=== PATIENT | female | born 2000 | race African-American/Black ===

== ENCOUNTER 2018-09-06 09:38 | Emergency (ER) | payer MEDICAID ==
[2018-09-06 10:12] LABS: BASOPHILS # (AUTO) 0.1 10^3/uL (0.0-0.1); EOSINOPHILS # (AUTO) 0.1 10^3/uL (0.0-0.7); EOSINOPHILS % (AUTO) 0.9 %; HGB - HEMOGLOBIN 12.9 g/dL (12.0-16.0); LYMPHOCYTES # (AUTO) 2.4 10^3/uL (1.5-3.5); LYMPHOCYTES % (AUTO) 26.8 %; MEAN CORPUSCULAR HEMOGLOBIN 27.3 pg (27.0-31.0); MEAN CORPUSCULAR HGB CONC 33.1 g/dL (32.0-36.0); MEAN CORPUSCULAR VOLUME 82.5 fL (81.0-99.0); MEAN PLATELET VOLUME 8.4 fL (7.9-10.8); MONOCYTES # (AUTO) 0.8 10^3/uL (0.0-1.0); MONOCYTES % (AUTO) 8.7 %; NEUTROPHILS # (AUTO) 5.6 10^3/uL (1.5-6.6); NEUTROPHILS % (AUTO) 62.6 %; PLT - PLATELET COUNT 251 10^3/uL (130-450); RED BLOOD COUNT 4.75 10^6/uL (4.20-5.40); RED CELL DISTRIBUTION WIDTH 13.3 % (12.0-15.0); WHITE BLOOD COUNT 8.9 x10^3/uL (4.8-10.8)
[2018-09-06 10:16] LABS: MUDS CUTOFF CONCENTRATIONS CUTOFF CONC BELOW:
--- NOTE | 2018-09-06 10:17 | ED Physician Documentation ---
PD HPI MHE - Stated complaint Stated Complaint: MHE - Chief complaint Chief Complaint: MHE - History obtained from History obtained from: Patient - History of Present Illness Primary symptom: Suicidal ideation, Depression Timing - onset: How many months ago (She has had depression for the last 5 months or so progressively worsening. She started control tablets 3 months ago but did not feel that there was a abrupt increase in her depression at that time. She has had worsening depression with some ideation of suicidality but no specific plan. She has not taken any action. She has not had any medications for depression and has not received any counseling. She had moved from [place] to here to live with her mother about a month and a half ago. She got a job at [employer]. She is not real happy there is there is no cure advancement.) Contributing factors: Work, Other (She graduated high school and intended to go to college on a basketball scholarship. However just before the school started, she states the college closed and at that point she was unable to go to her secondary choices. 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 She moved up here to be with her mother from [place]. She has not done any regular exercise lately. She did not re-enroll for colleges at this point as she had gotten acceptances based on a basketball scholarship and she is not playing on a team right now.). No: Substance abuse - ETOH, Substance abuse - drugs Similar symptoms before: No diagnosis Recently seen: Not recently seen Review of Systems Constitutional: denies: Fever Nose: denies: Rhinorrhea / runny nose, Congestion Throat: denies: Sore throat Cardiac: denies: Chest pain / pressure Respiratory: denies: Dyspnea, Cough GI: denies: Abdominal Pain, Nausea, Vomiting, Diarrhea : reports: Dysuria, Frequency, Irregular menses (since starting OCPs 3 months ago). denies: Hematuria, Discharge Neurologic: denies: Generalized weakness, Difficulty speaking, Altered mental status, Headache Endocrine: reports: Weight gain (mild the past few months, from less activity and eating less well.). denies: Weight loss PD PAST MEDICAL HISTORY - Past Medical History Cardiovascular: None Respiratory: None Neuro: None Endocrine/Autoimmune: None Psych: Depression - Past Surgical History Past Surgical History: No - Present Medications Home Medications: Ambulatory Orders Medication Instructions Recorded Confirmed Control 09/06/18 Sulfamethox/Trimeth 800/160 1 each PO BID #10 tablet 09/06/18 [Bactrim Ds 800/160] - Allergies Allergies/Adverse Reactions: Allergies Allergy/AdvReac Type Severity Reaction Status Date / Time No Known Drug Allergies Allergy Verified 09/06/18 09:47 - Living Situation Living Situation: reports: With family (She is living with her mother the last few months. She had had depression starting about 5 months ago. She started control about 3 months ago. She is moved here from [place] where she had grown up. Her brother is in the and has lived [place]. Her mother moved up here recently. The patient is now up here staying with her mother. She got a job at [employer] when moving here. She is not real happy with the job as there is no career advancement. She had graduated high school and had intention of going to college on a basketball scholarship but the college closed and so she was left without. She has not reapplied to other colleges as of this time. She has had depression increasing and has worsened over the last few weeks with ideas of suicidality but no specific plan. She does not receive any current counseling.) Living Arrangement: reports: At home - Social History Does the pt smoke?: No Smoking Status: Never smoker Does the pt drink ETOH?: No Does the pt have substance abuse?: No - Immunizations Immunizations are current?: Yes PD ED PE NORMAL - Vitals Vital signs reviewed: Yes - General General: Alert and 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, No acute distress, Well developed/nourished - HEENT HEENT: Moist mucous membranes, Pharynx benign - Neck Neck: Supple, no meningeal sign, Thyroid normal, Other (mild right nontender adenopathy) - Cardiac Cardiac: RRR, No murmur - Respiratory Respiratory: Clear bilaterally - Abdomen Abdomen: Soft, Non tender - Derm Derm: Normal color, Warm and dry - Extremities Extremities: No tenderness to palpate, Normal ROM s pain, No edema - Neuro Neuro: Alert and 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, No motor deficit, Normal speech Eye Opening: Spontaneous Motor: Obeys Commands Verbal: Oriented GCS Score: 15 - Psych Psych: Normal mood, Normal affect Results - Vitals Vitals: Vital Signs - 24 hr 09/06/18 09/06/18 09/06/18 09:44 11:56 14:00 Temperature 36.9 C Heart Rate 91 82 92 Respiratory 16 15 16 Rate Blood Pressure 142/67 H 110/69 130/77 O2 Saturation 99 100 99 Oxygen O2 Source Room air - Labs Labs: Laboratory Tests 09/06/18 09/06/18 09/06/18 10:06 10:06 10:14 WBC 8.9 RBC 4.75 Hgb 12.9 Hct 39.1 MCV 82.5 MCH 27.3 MCHC 33.1 RDW 13.3 Plt Count 251 MPV 8.4 Neut # (Auto) 5.6 Lymph # (Auto) 2.4 [place] # (Auto) 0.8 Eos # (Auto) 0.1 Baso # (Auto) 0.1 Absolute Nucleated RBC 0.00 Nucleated RBC % 0.0 Sodium 136 Potassium 3.3 L Chloride 105 Carbon Dioxide 23 Anion Gap 8.0 BUN 12 Creatinine 0.8 Estimated GFR (MDRD) 112 Glucose 99 Calcium 9.1 Total Bilirubin 1.1 H AST 17 ALT 14 Alkaline Phosphatase 38 L Total Protein 7.0 Albumin 4.0 Globulin 3.0 Albumin/Globulin Ratio 1.3 Lipase 29 TSH Urine Color Urine Clarity Urine pH Ur Specific [place] Urine Protein Urine Glucose (UA) Urine Ketones Urine Occult Blood Urine Nitrite Urine Bilirubin Urine Urobilinogen Ur Leukocyte Esterase Urine RBC Urine WBC Ur Squamous Epith Cells Urine Bacteria Urine Mucus Ur Microscopic Review Urine Culture Comments Urine HCG, Qual Salicylates < 6.0 Urine Opiates Screen NEGATIVE Ur Oxycodone Screen NEGATIVE Urine Methadone Screen NEGATIVE Ur Propoxyphene Screen NEGATIVE Acetaminophen < 10 L Ur Barbiturates Screen NEGATIVE Ur Tricyclics Screen NEGATIVE Ur Phencyclidine Scrn NEGATIVE Ur Amphetamine Screen NEGATIVE U Methamphetamines Scrn NEGATIVE U Benzodiazepines Scrn NEGATIVE Urine Cocaine Screen NEGATIVE U Cannabinoids Screen POSITIVE H Ethyl Alcohol < 5.0 09/06/18 09/06/18 10:14 10:19 WBC RBC Hgb Hct MCV MCH MCHC RDW Plt Count MPV Neut # (Auto) Lymph # (Auto) [place] # (Auto) Eos # (Auto) Baso # (Auto) Absolute Nucleated RBC Nucleated RBC % Sodium Potassium Chloride Carbon Dioxide Anion Gap BUN Creatinine Estimated GFR (MDRD) Glucose Calcium Total Bilirubin AST ALT Alkaline Phosphatase Total Protein Albumin Globulin Albumin/Globulin Ratio Lipase TSH 2.93 Urine Color YELLOW Urine Clarity HAZY Urine pH 6.0 Ur Specific [place] >=1.030 H Urine Protein TRACE Urine Glucose (UA) NEGATIVE Urine Ketones 15 H Urine Occult Blood MODERATE H Urine Nitrite NEGATIVE Urine Bilirubin SMALL H Urine Urobilinogen 0.2 (NORMAL) Ur Leukocyte Esterase TRACE H Urine RBC 0-5 Urine WBC 6-10 H Ur Squamous Epith Cells MANY Squamous H Urine Bacteria Moderate H Urine Mucus Moderate Strands Ur Microscopic Review INDICATED Urine Culture Comments NOT INDICATED Urine HCG, Qual NEGATIVE Salicylates Urine Opiates Screen Ur Oxycodone Screen Urine Methadone Screen Ur Propoxyphene Screen Acetaminophen Ur Barbiturates Screen Ur Tricyclics Screen Ur Phencyclidine Scrn Ur Amphetamine Screen U Methamphetamines Scrn U Benzodiazepines Scrn Urine Cocaine Screen U Cannabinoids Screen Ethyl Alcohol PD MEDICAL DECISION MAKING - ED course Complexity details: considered differential, d/w patient, d/w medical economics consultant (Consulted social work to see the patient regarding arranging counseling and further evaluation. He talked with the patient and her mother and felt the patient was potentially at risk for self-harm. He was looking into voluntary admission for the patient. However there are no beds available close by and the patient and mother did not want to go as far as his [place] area. They did ask about going home. The patient however was not clear about verbally amadeo for safety so the child protective services social worker was uncomfortable with that. He wanted to have a second evaluation. He talked with the [facility] to see if they could arrange a home calls and 2-day follow-up for Saturday. Apparently they were not able to arrange that and would dispatch the DCR to evaluate the patient. The patient and her mother are kept updated on the processes and steps of this. It is been a several hour process so far but the DCR should be here relatively soon.) Departure - Departure Clinical Impression: Suicidal ideation, Reactive depression (situational) UTI (urinary tract infection) Qualifiers: Urinary tract infection type: acute cystitis Hematuria presence: without hematuria Qualified Code(s): N30.00 - Acute cystitis without hematuria Condition: Stable Record reviewed to determine appropriate education?: Yes Instructions: ED UTI Cystitis Female Prescriptions: Sulfamethox/Trimeth 800/160 [Bactrim Ds 800/160] 1 each PO BID #10 tablet Comments: Follow-up with counseling as suggested arranged by the child protective services social worker and sawmill or timber yard worker. Refer to the referral sheet for local treatment programs and their phone numbers. You do have symptoms of a bladder infection and urinalysis can be consistent with that so we will treated with Bactrim antibiotic twice daily for 5 days. Drink lots of fluids.
[2018-09-06 10:23] LABS: GLUCOSE, URINE (UA) NEGATIVE (NEGATIVE); KETONES,URINE (UA) 15 mg/dL (NEGATIVE); LEUKOCYTE ESTERASE, URINE TRACE (NEGATIVE); NITRITE,URINE NEGATIVE (NEGATIVE); OCCULT BLOOD,URINE MODERATE (NEGATIVE); PROTEIN,URINE TRACE mg/dL (NEGATIVE); UROBILINOGEN,URINE 0.2 (NORMAL) E.U./dL (NORMAL)
[2018-09-06 10:26] LABS: CLARITY,URINE HAZY (CLEAR)
[2018-09-06 10:36] LABS: HCG UR QUAL NEGATIVE
[2018-09-06 10:37] LABS: BACTERIA,URINE Moderate /HPF (None Seen); MUCUS,URINE Moderate Strands; RBC,URINE 0-5 /HPF (0-5); SQUAMOUS EPITHELIAL CELL,UR MANY Squamous (<= Few)
[2018-09-06 10:37] LABS: ACETAMINOPHEN < 10 ug/mL (10-30); ALBUMIN/GLOBULIN RATIO 1.3 (1.0-2.2); ALKALINE PHOSPHATASE 38 IU/L (42-121); ALT ALANINE AMINOTRANSFERASE 14 IU/L (10-60); AST ASPARTATE AMINOTRANSFERASE 17 IU/L (10-42); BILIRUBIN,TOTAL 1.1 mg/dL (0.2-1.0); BUN - BLOOD UREA NITROGEN 12 mg/dL (6-20); CALCIUM 9.1 mg/dL (8.5-10.3); CARBON DIOXIDE - CO2 23 mmol/L (21-32); CHLORIDE 105 mmol/L (101-111); CREATININE 0.8 mg/dL (0.4-1.0); GFR - MDRD 112 (>89); GLUCOSE 99 mg/dL (70-100); LIPASE 29 U/L (22-51); SALICYLATE < 6.0 mg/dL; SODIUM 136 mmol/L (135-145)
[2018-09-06 10:38] LABS: BILIRUBIN,URINE SMALL (NEGATIVE); ICTOTEST,URINE POSITIVE
[2018-09-06 10:39] LABS: AMPHETAMINE SCREEN,URINE NEGATIVE (NEGATIVE); BENZODIAZEPINES SCREEN, URINE NEGATIVE (NEGATIVE); COCAINE SCREEN URINE NEGATIVE (NEGATIVE); METHADONE SCREEN, URINE NEGATIVE (NEGATIVE); METHAMPHETAMINES SCREEN, URINE NEGATIVE (NEGATIVE); OPIATE SCREEN, URINE NEGATIVE (NEGATIVE); OXYCODONE SCREEN, URINE NEGATIVE (NEGATIVE); PROPOXYPHENE SCREEN, URINE NEGATIVE (NEGATIVE); TRICYCLIC ANTIDEPRESSANT,URINE NEGATIVE (NEGATIVE)
[2018-09-06] MEDS ORDERED: MAG HYDROX/AL HYDROX/SIMETH 30 ML UDC PO STA (12:38)
[2018-09-06] MEDS ORDERED: SULFAMETH/TRIMETH DS 800/160 MG TABLET PO STA (15:15)
[2018-09-06] MEDS ORDERED: POTASSIUM BICARB 25 MEQ TABLET PO STA (15:15)
[2018-09-06 18:51] VITALS: BP 114/61
--- NOTE | 2018-09-06 19:59 | ED Physician Documentation ---
ED Addendum - Addendum Addendum: 09/06/18 19:59 Patient signed out to me by Dr. Bill. Please see his note. He felt that she was low risk, the outreach and education social worker felt that she was moderate risk and call the [facility] who cleared her for discharge. Close follow-up was arranged by the [facility].
== END 2018-09-06 20:26 | disposition home or self-care (01) ==
LOC: ED 09:38
DX: R45.851 Suicidal ideations (principal); F43.21 Adjustment disorder with depressed mood; N30.00 Acute cystitis without hematuria
CPT/HCPCS: 36415; 80053; 80306; 80307; 80320; 80329; 81001; 81025; 83690; 84443; 85025; 99284; A9270; 81003; 87086

== ENCOUNTER 2021-01-06 14:06 | Outpatient (CLI) | payer OTHER, MEDICAID ==
--- OUTSIDE RECORDS SUMMARY | 2021-01-11 02:23 | EXTERNAL MEDICAL SUMMARY RPT | Continuity of Care Document ---
:2000 Demographics Phone Unavailable Preferred Language Unknown Marital Status Unknown Taoist Affiliation Unknown Race Unknown Ethnic Group Unknown Author Organization [facility] Address [address] [place] [address] Phone Social History date description facility [phone]
== END 2021-01-06 14:07 | disposition critical access hospital (66) ==
LOC: EMS 14:06
PROVIDERS: ATTEND Emergency Medicine
DX: O20.9 Hemorrhage in early pregnancy, unspecified (principal); O99.891 Other specified diseases and conditions complicating pregnancy; R10.9 Unspecified abdominal pain; Z3A.01 Less than 8 weeks gestation of pregnancy
CPT/HCPCS: A0425; A0429

== ENCOUNTER 2021-01-06 14:24 | Emergency (ER) | payer OTHER, MEDICAID ==
[2021-01-06 14:59] LABS: BASOPHILS % (AUTO) 0.6 %; EOSINOPHILS # (AUTO) 0.1 10^3/uL (0.0-0.7); EOSINOPHILS % (AUTO) 0.7 %; HCT - HEMATOCRIT 42.6 % (37.0-47.0); HGB - HEMOGLOBIN 13.8 g/dL (12.0-16.0); LYMPHOCYTES # (AUTO) 1.5 10^3/uL (1.5-3.5); LYMPHOCYTES % (AUTO) 21.2 %; MEAN CORPUSCULAR HEMOGLOBIN 27.6 pg (27.0-31.0); MEAN CORPUSCULAR HGB CONC 32.4 g/dL (32.0-36.0); MEAN CORPUSCULAR VOLUME 85.2 fL (81.0-99.0); MEAN PLATELET VOLUME 10.2 fL (7.9-10.8); MONOCYTES # (AUTO) 0.6 10^3/uL (0.0-1.0); MONOCYTES % (AUTO) 8.2 %; NEUTROPHILS # (AUTO) 4.9 10^3/uL (1.5-6.6); NEUTROPHILS % (AUTO) 68.7 %; PLT - PLATELET COUNT 260 10^3/uL (130-450); RED CELL DISTRIBUTION WIDTH 12.6 % (12.0-15.0); WHITE BLOOD COUNT 7.2 x10^3/uL (4.8-10.8)
--- NOTE | 2021-01-06 15:10 | ED Physician Documentation ---
History of Present Illness - Stated complaint Stated Complaint: FEM - Chief complaint Chief Complaint: General - History obtained from History obtained from: Patient - History of Present Illness Timing: Today Pain level max: 0 Pain level now: 0 - Additonal information Additional information: Patient is a 20-year-old female, 1 para 0 who presents to the emergency department stating she is about 5 weeks and had vaginal bleeding today. She states that it was not a large amount, states it has mostly resolved now. Has had minimal abdominal cramping. Nothing makes it better or worse. No fevers. No chills. No trauma. No vaginal discharge. Review of Systems Ten Systems: 10 systems reviewed and negative Constitutional: denies: Fever, Chills Cardiac: denies: Chest pain / pressure Respiratory: denies: Cough GI: denies: Nausea, Vomiting, Diarrhea Skin: denies: Rash Neurologic: denies: Headache PD PAST MEDICAL HISTORY - Past Medical History Past Medical History: Yes Cardiovascular: None Respiratory: None Neuro: None Endocrine/Autoimmune: None Psych: Depression - Past Surgical History Past Surgical History: No - Present Medications Home Medications: Ambulatory Orders Medication Instructions Recorded Confirmed Pnv No.95/Ferrous Fum/Folic AC 1 tab PO DAILY 01/06/21 01/06/21 [ [place]] cephALEXin [Keflex] 500 mg PO Q6H #20 cap 01/06/21 - Allergies Allergies/Adverse Reactions: Allergies Allergy/AdvReac Type Severity Reaction Status Date / Time No Known Drug Allergies Allergy Verified 01/06/21 14:37 - Social History Does the pt smoke?: No Smoking Status: Never smoker Does the pt drink ETOH?: No Does the pt have substance abuse?: No - Immunizations Immunizations are current?: Yes PD ED PE NORMAL - Vitals Vital signs reviewed: Yes - General General: Alert and 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, No acute distress - HEENT HEENT: Moist mucous membranes - Neck Neck: Supple, no meningeal sign - Cardiac Cardiac: RRR - Respiratory Respiratory: No respiratory distress, Clear bilaterally - Abdomen Abdomen: Soft, Non tender, Non distended - Back Back: No CVA TTP, No spinal TTP - Derm Derm: Warm and dry - Extremities Extremities: No edema - Neuro Neuro: Alert and 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 Results - Vitals Vitals: Vital Signs - 24 hr 01/06/21 01/06/21 14:17 16:37 Temperature 37.1 C 36.7 C Heart Rate 79 78 Respiratory 16 16 Rate Blood Pressure 123/86 H 118/71 O2 Saturation 100 98 Oxygen O2 Source Room air - Labs Labs: Laboratory Tests 01/06/21 01/06/21 01/06/21 14:52 14:52 14:52 WBC 7.2 RBC 5.00 Hgb 13.8 Hct 42.6 MCV 85.2 MCH 27.6 MCHC 32.4 RDW 12.6 Plt Count 260 MPV 10.2 Neut # (Auto) 4.9 Lymph # (Auto) 1.5 [place] # (Auto) 0.6 Eos # (Auto) 0.1 Baso # (Auto) 0.0 Absolute Nucleated RBC 0.00 Nucleated RBC % 0.0 Sodium 136 Potassium 3.7 Chloride 102 Carbon Dioxide 24 Anion Gap 10.0 BUN 6 Creatinine 0.8 Estimated GFR (MDRD) 109 Glucose 101 H Calcium 9.4 Total Bilirubin 0.8 AST 24 ALT 25 Alkaline Phosphatase 50 Total Protein 7.6 Albumin 4.4 Globulin 3.2 Albumin/Globulin Ratio 1.4 Lipase 21 L HCG, Quant 4966.00 Urine Color Urine Clarity Urine pH Ur Specific [place] Urine Protein Urine Glucose (UA) Urine Ketones Urine Occult Blood Urine Nitrite Urine Bilirubin Urine Urobilinogen Ur Leukocyte Esterase Urine RBC Urine WBC Ur Squamous Epith Cells Urine Bacteria Ur Microscopic Review Urine Culture Comments 01/06/21 15:16 WBC RBC Hgb Hct MCV MCH MCHC RDW Plt Count MPV Neut # (Auto) Lymph # (Auto) [place] # (Auto) Eos # (Auto) Baso # (Auto) Absolute Nucleated RBC Nucleated RBC % Sodium Potassium Chloride Carbon Dioxide Anion Gap BUN Creatinine Estimated GFR (MDRD) Glucose Calcium Total Bilirubin AST ALT Alkaline Phosphatase Total Protein Albumin Globulin Albumin/Globulin Ratio Lipase HCG, Quant Urine Color YELLOW Urine Clarity SL. CLOUDY Urine pH 7.0 Ur Specific [place] 1.010 Urine Protein NEGATIVE Urine Glucose (UA) NEGATIVE Urine Ketones NEGATIVE Urine Occult Blood LARGE H Urine Nitrite POSITIVE H Urine Bilirubin NEGATIVE Urine Urobilinogen 0.2 (NORMAL) Ur Leukocyte Esterase TRACE H Urine RBC 6-10 H Urine WBC 0-3 Ur Squamous Epith Cells FEW Squamous Urine Bacteria Few Ur Microscopic Review INDICATED Urine Culture Comments INDICATED - Rads (name of study) OB first trimester ultrasound Radiology: Prelim report reviewed, EMP read contemporaneously, See rad report PD MEDICAL DECISION MAKING - ED course Complexity details: reviewed results, re-evaluated patient, considered differential, d/w patient ED course: 20-year-old female, vaginal bleeding affecting early . hCG is just under 5000. Possible early gestational sac that would correspond to 5 weeks, 2 days which would be corresponding with her LMP. We will have her follow-up with her doctor for repeat hCG and likely repeat ultrasound. Ectopic precautions given at bedside. Patient counseled regarding signs and symptoms for which I believe and urgent re-evaluation would be necessary. Patient with good understanding of and agreement to plan and is comfortable going home at this time This document was made in part using voice recognition software. While efforts are made to proofread this document, sound alike and grammatical errors may occur. IMPRESSION: Nonspecific fluid at the uterine fundus which may represent an early gestational sac, although this is not definitive. There is otherwise no evidence to serve as a definitive indicator of viable intrauterine . Close clinical and imaging follow-up recommended. Departure - Departure Disposition: 01 Home, Self Care Clinical Impression: Vaginal bleeding affecting early UTI (urinary tract infection) Qualifiers: Urinary tract infection type: acute cystitis Hematuria presence: without hematuria Qualified Code(s): N30.00 - Acute cystitis without hematuria Qualifiers: Weeks of gestation: less than 8 weeks Qualified Code(s): Z3A.01 - Less than 8 weeks gestation of Condition: Good Instructions: ED Miscarriage Poss, ED UTI Cystitis Female Follow-Up: Provider,Other [Primary Care Provider] - Prescriptions: cephALEXin [Keflex] 500 mg PO Q6H #20 cap Comments: You need to have a repeat hCG in 3 days with your doctor. Today it is approximately 5000. If this is going up, you should have a repeat ultrasound within a week, if this is going down in 3 days, you are likely miscarrying. Please follow-up with your doctor for further care and return if you worsen. Take all antibiotics until gone. You do have a urinary tract infection as well. IMPRESSION: Nonspecific fluid at the uterine fundus which may represent an early gestational sac, although this is not definitive. There is otherwise no evidence to serve as a definitive indicator of viable intrauterine . Close clinical and imaging follow-up recommended. Discharge Date/Time: 01/06/21 17:04
[2021-01-06 15:13] LABS: ALBUMIN 4.4 g/dL (3.2-5.5); ALBUMIN/GLOBULIN RATIO 1.4 (1.0-2.2); BILIRUBIN,TOTAL 0.8 mg/dL (0.2-1.0); CALCIUM 9.4 mg/dL (8.5-10.3); CREATININE 0.8 mg/dL (0.4-1.0); POTASSIUM 3.7 mmol/L (3.5-5.0); TOTAL PROTEIN 7.6 g/dL (6.7-8.2)
[2021-01-06 15:30] LABS: BILIRUBIN,URINE NEGATIVE (NEGATIVE); GLUCOSE, URINE (UA) NEGATIVE (NEGATIVE); KETONES,URINE (UA) NEGATIVE (NEGATIVE); LEUKOCYTE ESTERASE, URINE TRACE (NEGATIVE); NITRITE,URINE POSITIVE (NEGATIVE); OCCULT BLOOD,URINE LARGE (NEGATIVE); PROTEIN,URINE NEGATIVE (NEGATIVE); UROBILINOGEN,URINE 0.2 (NORMAL) E.U./dL (NORMAL)
[2021-01-06 15:32] LABS: CLARITY,URINE SL. CLOUDY (CLEAR)
[2021-01-06 15:37] LABS: BACTERIA,URINE Few /HPF (None Seen); SQUAMOUS EPITHELIAL CELL,UR FEW Squamous (<= Few); WBC,URINE 0-3 /HPF (0-5)
--- NOTE | 2021-01-06 16:10 | Ultrasound Report ---
PROCEDURE: OB First Trimester w/TV INDICATIONS: 5 weeks , vaginal bleeding. OUTSIDE/PRIOR DATING DATA: Last menstrual period (LMP): 11/26/2020. LMP-based estimated date of delivery (MARIYA): 09/02/2021. First dating scan (date and location): 01/06/2021. TECHNIQUE: Real-time scanning was performed of the fetus and maternal pelvic organs, with image documentation. Endovaginal scanning was also performed to better visualize the fetus and maternal ovaries. COMPARISON: FINDINGS: There is a questionable gestational sac at the uterine fundus measuring approximately 0.5 cm, which would correspond to a gestational age of 5 weeks 2 days. There is no yolk sac or pole identified. Cyst in the left ovary may represent a corpus luteum cyst. IMPRESSION: Nonspecific fluid at the uterine fundus which may represent an early gestational sac, although this i s not definitive. There is otherwise no evidence to serve as a definitive indicator of viable intraut erine . Close clinical and imaging follow-up recommended. Reviewed by: Hong Linda MD on 01/06/2021 4:09 PM PDT Approved by: Hong Linda MD on 01/06/2021 4:09 PM PDT Station ID: [id number]
[2021-01-06 16:46] VITALS: BP 118/71
[2021-01-06] MEDS ORDERED: cephALEXin 250 MG CAPSULE PO STA (16:50)
--- OUTSIDE RECORDS SUMMARY | 2021-01-11 02:08 | EXTERNAL MEDICAL SUMMARY RPT | Continuity of Care Document ---
:2000 Demographics Phone Unavailable Preferred Language Unknown Marital Status Unknown Anabaptist Affiliation Unknown Race Unknown Ethnic Group Unknown Author Organization [facility] Address [address] [place] [address] Phone Social History date description facility [phone]
== END 2021-01-06 17:04 | disposition home or self-care (01) ==
LOC: EDUNIT# → ED 14:24
DX: O20.9 Hemorrhage in early pregnancy, unspecified (principal); O23.11 Infections of bladder in pregnancy, first trimester; Z3A.01 Less than 8 weeks gestation of pregnancy
CPT/HCPCS: 36415; 76801; 76817; 80053; 81001; 83690; 84702; 85025; 87086; 99284; A9270; 81003

== ENCOUNTER 2021-01-09 14:36 | Outpatient (CLI) | payer OTHER, MEDICAID | END 2021-01-09 14:37 | disposition home or self-care (01) | LOC: LAB.N 14:36 | PROVIDERS: ATTEND Advanced Practice Midwife | DX: O20.9 Hemorrhage in early pregnancy, unspecified (principal) | CPT/HCPCS: 36415; 84702 ==

== ENCOUNTER 2021-01-10 15:21 | Outpatient (CLI) | payer OTHER, MEDICAID | END 2021-01-10 15:22 | disposition home or self-care (01) | LOC: LAB.N 15:21 | PROVIDERS: ATTEND Nurse Practitioner Obstetrics & Gynecology | DX: O20.9 Hemorrhage in early pregnancy, unspecified (principal) | CPT/HCPCS: 36415; 86850; 86900; 86901 ==

== ENCOUNTER 2021-01-16 15:38 | Outpatient (CLI) | payer OTHER, MEDICAID | END 2021-01-16 15:39 | disposition home or self-care (01) | LOC: LAB.N 15:38 | PROVIDERS: ATTEND Advanced Practice Midwife | DX: O20.9 Hemorrhage in early pregnancy, unspecified (principal) | CPT/HCPCS: 36415; 84702 ==

== ENCOUNTER 2021-01-18 15:23 | Outpatient (CLI) | payer OTHER, MEDICAID | END 2021-01-18 15:24 | disposition home or self-care (01) | LOC: LAB.N 15:23 | PROVIDERS: ATTEND Advanced Practice Midwife | DX: O20.9 Hemorrhage in early pregnancy, unspecified (principal) | CPT/HCPCS: 36415; 84702 ==

== ENCOUNTER 2021-01-27 08:00 | Outpatient (CLI) | payer OTHER, MEDICAID ==
[2021-01-27 16:24] LABS: MUDS CUTOFF CONCENTRATIONS CUTOFF CONC BELOW:
[2021-01-27 16:28] LABS: BILIRUBIN,URINE NEGATIVE (NEGATIVE); GLUCOSE, URINE (UA) NEGATIVE (NEGATIVE); KETONES,URINE (UA) NEGATIVE (NEGATIVE); LEUKOCYTE ESTERASE, URINE NEGATIVE (NEGATIVE); NITRITE,URINE NEGATIVE (NEGATIVE); OCCULT BLOOD,URINE TRACE-INTA (NEGATIVE); PH,URINE 6.5 PH (5.0-7.5); PROTEIN,URINE NEGATIVE (NEGATIVE); UROBILINOGEN,URINE 0.2 (NORMAL) E.U./dL (NORMAL)
[2021-01-27 16:29] LABS: BACTERIA,URINE None Seen /HPF (None Seen); CLARITY,URINE CLEAR (CLEAR); RBC,URINE 0-5 /HPF (0-5); SQUAMOUS EPITHELIAL CELL,UR RARE Squamous (<= Few); WBC,URINE 0-3 /HPF (0-5)
[2021-01-27 16:37] LABS: AMPHETAMINE SCREEN,URINE NEGATIVE (NEGATIVE); BARBITURATE SCREEN,UR NEGATIVE (NEGATIVE); BENZODIAZEPINES SCREEN, URINE NEGATIVE (NEGATIVE); COCAINE SCREEN URINE NEGATIVE (NEGATIVE); METHADONE SCREEN, URINE NEGATIVE (NEGATIVE); METHAMPHETAMINES SCREEN, URINE NEGATIVE (NEGATIVE); OPIATE SCREEN, URINE NEGATIVE (NEGATIVE); OXYCODONE SCREEN, URINE NEGATIVE (NEGATIVE); PROPOXYPHENE SCREEN, URINE NEGATIVE (NEGATIVE); THC CANNABINOID SCREEN, URINE POSITIVE (NEGATIVE); TRICYCLIC ANTIDEPRESSANT,URINE NEGATIVE (NEGATIVE)
== END 2021-01-27 23:59 | disposition home or self-care (01) ==
LOC: LAB.R 08:00
PROVIDERS: ATTEND Obstetrics & Gynecology
DX: Z36.89 Encounter for other specified antenatal screening (principal)
CPT/HCPCS: 80306; 80349; 81001; 81599; 87086

== ENCOUNTER 2021-02-24 09:22 | Outpatient (CLI) | payer OTHER, MEDICAID ==
[2021-02-24 09:51] LABS: BASOPHILS % (AUTO) 0.6 %; EOSINOPHILS # (AUTO) 0.1 10^3/uL (0.0-0.7); EOSINOPHILS % (AUTO) 0.8 %; HCT - HEMATOCRIT 38.8 % (37.0-47.0); HGB - HEMOGLOBIN 13.3 g/dL (12.0-16.0); LYMPHOCYTES # (AUTO) 1.5 10^3/uL (1.5-3.5); LYMPHOCYTES % (AUTO) 22.9 %; MEAN CORPUSCULAR HEMOGLOBIN 28.2 pg (27.0-31.0); MEAN CORPUSCULAR HGB CONC 34.3 g/dL (32.0-36.0); MEAN CORPUSCULAR VOLUME 82.4 fL (81.0-99.0); MEAN PLATELET VOLUME 10.7 fL (7.9-10.8); MONOCYTES # (AUTO) 0.5 10^3/uL (0.0-1.0); MONOCYTES % (AUTO) 7.7 %; NEUTROPHILS # (AUTO) 4.5 10^3/uL (1.5-6.6); NEUTROPHILS % (AUTO) 67.5 %; PLT - PLATELET COUNT 258 10^3/uL (130-450); RED BLOOD COUNT 4.71 10^6/uL (4.20-5.40); RED CELL DISTRIBUTION WIDTH 12.3 % (12.0-15.0); WHITE BLOOD COUNT 6.6 x10^3/uL (4.8-10.8)
[2021-02-25 07:51] LABS: HIV AG/AB 4TH GEN NON-REACTIVE (NON-REACTIVE)
[2021-02-25 12:17] LABS: HEPATITIS B SURFACE ANTIGEN NON-REACTIVE (NON-REACTIVE); HEPATITIS C ANTIBODY NON-REACTIVE (NON-REACTIVE)
== END 2021-02-24 09:23 | disposition home or self-care (01) ==
LOC: LAB 09:22
PROVIDERS: ATTEND Obstetrics & Gynecology
DX: Z36.89 Encounter for other specified antenatal screening (principal)
CPT/HCPCS: 36415; 85025; 86592; 86762; 86787; 86803; 86850; 86900; 86901; 87340; 87389

== ENCOUNTER 2021-03-01 19:45 | Outpatient (CLI) | payer OTHER, MEDICAID ==
--- NOTE | 2021-03-02 15:08 | Ultrasound Report ---
PROCEDURE: OB First Trimester w/TV INDICATIONS: SUPERVISION OF NORMAL OUTSIDE/PRIOR DATING DATA: Last menstrual period (LMP): 11/26/20. LMP-based estimated date of delivery (MARIYA): 09/02/21. First dating scan (date and location): 01/06/21, no crown rump. Estimated date of delivery (MARIYA) from 03/01/21: 09/12/21. TECHNIQUE: Real-time scanning was performed of the fetus and maternal pelvic organs, with image documentation. Endovaginal scanning was also performed to better visualize the fetus and maternal ovaries. COMPARISON: FINDINGS: Embryo: Single live intrauterine with crown rump length measuring 5.5 cm corresponding to 12 weeks 1 day. Heart rate is 169 beats per minute. Cervix is closed. Measurement variability in dating: +/- 4 weeks by LMP, +/- 7 days by mean sac diameter (use before 6 weeks gestation if crown-rump length not able to be measured), +/- 5 days by crown-rump length (6-12 weeks gestation). Maternal organs: Right ovary is within normal limits. Left ovary is not well seen. IMPRESSION: 1. Single live intrauterine with ultrasound gestational today of 12 weeks one day. 2. Recommend follow-up imaging at 20-22 weeks for dates and anatomy. Reviewed by: Marina Aguayo MD on 03/02/2021 3:07 PM PDT Approved by: Marina Aguayo MD on 03/02/2021 3:07 PM PDT Station ID: [id number]
== END 2021-03-01 19:46 | disposition home or self-care (01) ==
LOC: DI 19:45
PROVIDERS: ATTEND Obstetrics & Gynecology
DX: Z34.90 Encounter for supervision of normal pregnancy, unspecified, unspecified trimester (principal); Z36.89 Encounter for other specified antenatal screening

== ENCOUNTER 2021-03-17 23:18 | Emergency (ER) | payer OTHER, MEDICAID ==
--- NOTE | 2021-03-17 23:44 | ED Physician Documentation ---
PD HPI FEMALE - Stated complaint Stated Complaint: 14 WKS/BLEEDING - Chief complaint Chief Complaint: Abd Pain - History obtained from History obtained from: Patient - History of Present Illness Timing - onset: How many hours ago (1), Today (was bowling with partner/friends and noted some cramps then vaginal bleeding.) Timing - details: Abrupt onset, Still present Associated symptoms: Pelvic pain, Vaginal bleeding. No: Fever, Vaginal discharge, Dysuria Contributing factors: OB-SALES TRAINER History: G (1), P (0) Similar symptoms before: No diagnosis (she states had brief bleeding about 5 weeks EGA with this , but normal after that.) Recently seen: Clinic (normal visit recently.) Review of Systems Constitutional: denies: Fever, Chills Nose: denies: Rhinorrhea / runny nose, Congestion Throat: denies: Sore throat Respiratory: denies: Cough GI: reports: Nausea. denies: Abdominal Pain, Vomiting, Diarrhea : reports: Frequency, Vaginal bleeding (just this evening, has used 1 pad. Is 14 wks .). denies: Dysuria, Discharge PD PAST MEDICAL HISTORY - Past Medical History Past Medical History: Yes Cardiovascular: None Respiratory: None Neuro: None Endocrine/Autoimmune: None Psych: Depression - Past Surgical History Past Surgical History: No - Present Medications Home Medications: Ambulatory Orders Medication Instructions Recorded Confirmed Pnv No.95/Ferrous Fum/Folic AC 1 tab PO DAILY 01/06/21 01/06/21 [ Caplet] cephALEXin [Keflex] 500 mg PO Q6H #20 cap 01/06/21 Progesterone,Micronized 200 mg PV DAILY 30 Days #30 cap 03/18/21 [Prometrium] - Allergies Allergies/Adverse Reactions: Allergies Allergy/AdvReac Type Severity Reaction Status Date / Time No Known Drug Allergies Allergy Verified 03/17/21 23:26 - Social History Does the pt smoke?: No Smoking Status: Never smoker Does the pt drink ETOH?: No Does the pt have substance abuse?: No - Immunizations Immunizations are current?: Yes PD ED PE NORMAL - Vitals Vital signs reviewed: Yes - General General: Alert and 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, No acute distress, Well developed/nourished - Abdomen Abdomen: Normal bowel sounds, Soft, Non tender, Non distended, No organomegaly, Other (bedside U/S showing IUP with size c/w dates, good normal movement and FHR. No pelvid free fluids. ) Results - Vitals Vitals: Vital Signs - 24 hr 03/17/21 03/17/21 03/18/21 23:20 23:26 01:26 Temperature 36.8 C 36.8 C 36.8 C Heart Rate 110 H 110 H 99 Respiratory 20 20 19 Rate Blood Pressure 142/73 H 142/73 H 135/71 H O2 Saturation 96 96 97 03/18/21 03/18/21 03:00 03:13 Temperature 36.8 C 36.8 C Heart Rate 81 81 Respiratory 18 18 Rate Blood Pressure 136/70 H 136/70 H O2 Saturation 98 98 Oxygen O2 Source Room air - Labs Labs: Laboratory Tests 03/18/21 03/18/21 03/18/21 00:22 00:24 03:00 Urine Color YELLOW Urine Clarity CLEAR Urine pH 6.0 Ur Specific [place] >=1.030 H Urine Protein NEGATIVE Urine Glucose (UA) NEGATIVE Urine Ketones NEGATIVE Urine Occult Blood MODERATE H Urine Nitrite NEGATIVE Urine Bilirubin NEGATIVE Urine Urobilinogen 0.2 (NORMAL) Ur Leukocyte Esterase NEGATIVE Urine RBC 6-10 H Urine WBC 0-3 Ur Squamous Epith Cells MANY Squamous H Urine Crystals 3-5 Calcium Oxalate Urine Bacteria Rare Ur Microscopic Review INDICATED Urine Culture Comments NOT INDICATED Membranes Rupture POSITIVE A Blood Type O POSITIVE - Rads (name of study) OB U/S Radiology: Prelim report reviewed (single , FHR 150. RED 11.1. Cervix 2.5 cm closed. ), See rad report PD MEDICAL DECISION MAKING - ED course Complexity details: reviewed results (vag bleeding and fluid this evening. Vitals are good. ROM Plus test is positive. Consulted Dr. Barrera, who will see the patient. ), re-evaluated patient (still some vaginal bleeding, but tapered. Exam and discussion with SPECIAL DELIVERY CARRIER. ), considered differential (FHR and movement good bedside U/S. Has some bleeding and feeling vaginal fluid. Got ROM Plus test that was positive, so concern for PROM at 14 wks. Brennon consult with SPECIAL DELIVERY CARRIER. ), d/w patient, d/w party plan sales consultant (SPECIAL DELIVERY CARRIER, who requests formal U/S to get RED and cervical length as predictors of miscarriage. Also K-B test and GBS. ) Departure - Departure Disposition: 01 Home, Self Care Clinical Impression: Vaginal bleeding before 22 weeks gestation Condition: Stable Record reviewed to determine appropriate education?: Yes Instructions: ED Miscarriage Poss Follow-Up: Trey Rodriguez MD [Provider Admit Priv/Credential] - Prescriptions: Progesterone,Micronized [Prometrium] 200 mg PV DAILY 30 Days #30 cap Comments: Stay well hydrated. No intercourse nor vigorous activity; light regular daily activity is okay. Continue your usual medications. Add Micronized Progesterone intravaginally daily per direction of SPECIAL DELIVERY CARRIER. Follow up with your OB next week, call Saturday for appt. Return if worse symptoms. Any other instructions as per Dr. Barrera, who talked with you here in the ER as well. Discharge Date/Time: 03/18/21 03:19
[2021-03-18 00:32] LABS: BILIRUBIN,URINE NEGATIVE (NEGATIVE); GLUCOSE, URINE (UA) NEGATIVE (NEGATIVE); KETONES,URINE (UA) NEGATIVE (NEGATIVE); LEUKOCYTE ESTERASE, URINE NEGATIVE (NEGATIVE); NITRITE,URINE NEGATIVE (NEGATIVE); OCCULT BLOOD,URINE MODERATE (NEGATIVE); PROTEIN,URINE NEGATIVE (NEGATIVE); UROBILINOGEN,URINE 0.2 (NORMAL) E.U./dL (NORMAL)
[2021-03-18 00:33] LABS: CLARITY,URINE CLEAR (CLEAR)
[2021-03-18 00:39] LABS: BACTERIA,URINE Rare /HPF (None Seen); SQUAMOUS EPITHELIAL CELL,UR MANY Squamous (<= Few); WBC,URINE 0-3 /HPF (0-5)
[2021-03-18 00:40] LABS: CRYSTALS,URINE 3-5 Calcium Oxalate /LPF
[2021-03-18 00:40] LABS: RUPTURE OF MEMBRANES PLUS POSITIVE (NEGATIVE)
[2021-03-18 03:13] VITALS: BP 136/70
--- NOTE | 2021-03-18 03:28 | CONSULTATION NOTE ---
Referring Provider Name of Referring Provider:: Dr. Bill Consult Date: 03/18/21 Chief Complaint - Chief Complaint Chief Complaint: Vaginal bleeding at 14 wga History of Present Illness - History of Present Illness HPI Comment/Other: Patient is a 20 yo at 14+4 wga by LMP at 12 week us who presents with vaginal bleeding. Patient reports that she was bowling otnight and flet a cramping sensation in her right upper quadrant. On her way out of the facility, she noted a wet sensation in the groin area. She was noted to be bleeding. No notable cramping at present. No N/V. No recent falls or blows to abdomen. ROM+ was collected and was positive. She continues to have have mild vaginal bleeding. Patient herself was born at 26 weeks. Her mother had 11 pregnancies and 4 lives births. She had at least 2 pregnancies delivered at 24 at 26 weeks and had undergone cerclage placement. Patient's grandmother also had several deliveries attributed to incompetent cervix. She had vaginal bleeding in the first trimester but nothing since. Review of prior us shows a closed cervix but no measurements. Informal measurements taken from theses images suggest that the cervix was ~3.5 cm in length on 03/01/21. PMH: cervical dysplasia PSH: none OBHX: no prior pregnancies. History - Past Medical History Cardiovascular: reports: None Respiratory: reports: None Neuro: reports: None Endocrine/Autoimmune: reports: None Psych: reports: Depression MRSA Hx?: No Meds/Allgy - Home Medications Home Medications: Ambulatory Orders Medication Instructions Recorded Confirmed Pnv No.95/Ferrous Fum/Folic AC 1 tab PO DAILY 01/06/21 01/06/21 [ Caplet] cephALEXin [Keflex] 500 mg PO Q6H #20 cap 01/06/21 Progesterone,Micronized 200 mg PV DAILY 30 Days #30 cap 03/18/21 [Prometrium] - Allergies Allergies/Adverse Reactions: Allergies Allergy/AdvReac Type Severity Reaction Status Date / Time No Known Drug Allergies Allergy Verified 03/17/21 23:26 Review of Systems - Other Findings Other Findings: As per HPI, otherwise remaining systems are negative. Exam - Vital Signs Reviewed Vital Signs: Yes Vital Signs: Vital Signs x48h Temp Pulse Resp BP Pulse Ox 03/18/21 03:13 98.2 F 81 18 136/70 H 98 03/18/21 03:00 98.2 F 81 18 136/70 H 98 03/18/21 01:26 98.2 F 99 19 135/71 H 97 03/17/21 23:26 98.2 F 110 H 20 142/73 H 96 03/17/21 23:20 98.2 F 110 H 20 142/73 H 96 - Physical Exam General Appearance: positive: No acute distress Respiratory: positive: No respiratory distress Cardiovascular: positive: Other (RR) Abdomen: positive: Non-tender (gravid, S&NT/ND. Striae present above uterine fundus) Rectal: positive: Non-tender Skin: positive: Color nml, Warm, Dry Extremities: positive: Non-tender, No pedal edema Neurologic/Psychiatric: positive: Oriented x3 Comments/Other: PELVIC: NEFG. Nl BSUMA. No active passage of fluid or active vaginal bleeding at introitus. Conclusion/Plan - Plan Plan: 20 yo at 14+4 with vaginal bleeding Membranes assessment: -negative ferning on extensive evaluation -RED 11, which is greater than median levels for gestational age and not supportive of rupture -ROM+ was positive but is known to be falsely positive with blood content greater than 10% an amniotic fluid sample. Vaginal fluid was mainly blood. -Low concern for PPROM -Collected GBS SHORTENED CERVIX: -Cervical length 2.5 cm on formal us -Strong family hx of cervical insufficiency -Recommend starting on micronized progesterone 200 mcg per vagina nightly -Pelvic rest -Lifting restrictions for less than 20# and avoid vigorous activity PLACENTATION: Commentary regarding hypoechoic area behind placenta on prelim images -Bleeding after lifting/exertion in setting of aforementioned imaging c/f partial abruption -Sending kleihauer-betke studies -Confirmed patient is O positive. FWB: Viable and active IP with FHT in 150s Warning signs reviewed Has fu with Dr. Rodriguez later this week Thank you for including me in the care of this patient. I personally reviewed us images collected on 03/18/21 as well as 03/01/21 images. More than 75 minutes was spent in assessment, evaluation, and branch credit counselor in this patient's care.
--- NOTE | 2021-03-18 14:49 | Ultrasound Report ---
PROCEDURE: OB 14+ Weeks INDICATIONS: concern for ROM/vag bleed. OUTSIDE/PRIOR DATING DATA: Last menstrual period (LMP): 11/26/2020. LMP-based estimated date of delivery (MARIYA): 09/02/2021. First dating scan (date and location): 03/01/2021. Estimated date of delivery (MARIYA) from first dating scan: 09/12/2021. The below data below was generated using the ultrasound MARIYA of 10/02/2021 TECHNIQUE: Real-time scanning was performed of the fetus, with image documentation. COMPARISON: 01/06/2021, 03/01/2021 FINDINGS: General: A single live intrauterine gestation is present. Presentation: Breech Placenta: Placental position is anterior, without previa. Adjacent to the placenta, there is a hypo echoic vascular region seen between the anterior placenta and the uterine wall. Amniotic fluid index: 11.1 cm, within normal limits for gestational age. heart rate: 150 beats per minute. Maternal cervical canal: 2.4 cm long; normal length is 2.5 cm or more. IMPRESSION: The cervix is mildly shortened at 2.4 cm. Fluid and increased vascular cavity seen adjacent to the placenta. These findings are mildly progress ed compared to 03/01/2021 examination. Differential diagnosis includes placental abruption. Close clinical follow-up and short-term ultrasound are recommended, if clinically appropriate. Note: Findings and recommendations (including difference between this final report and the preliminar y report) discussed by telephone with Dr. Maurer At 1:47 PM [place] time on 03/18/2021. Reviewed by: Jamar Giron MD on 03/18/2021 1:48 PM [facility]DT Approved by: Jamar Giron MD on 03/18/2021 1:48 PM AKDT Station ID: [id number]
== END 2021-03-18 03:19 | disposition home or self-care (01) ==
LOC: ED 23:18
DX: O20.9 Hemorrhage in early pregnancy, unspecified (principal); Z3A.14 14 weeks gestation of pregnancy
CPT/HCPCS: 81001; 81003; 84112; 86900; 86901; 87086; 87797; 99283; 99284

== ENCOUNTER 2021-04-05 08:00 | Outpatient (CLI) | payer OTHER, MEDICAID | END 2021-04-05 23:59 | disposition home or self-care (01) | LOC: LAB.WCP 08:00 | PROVIDERS: ATTEND Obstetrics & Gynecology | DX: Z34.90 Encounter for supervision of normal pregnancy, unspecified, unspecified trimester (principal) | CPT/HCPCS: 81511 ==

== ENCOUNTER 2021-04-09 17:23 | Emergency (ER) | payer OTHER, MEDICAID ==
[2021-04-09 17:41] VITALS: BP 121/65
[2021-04-09 17:50] LABS: BILIRUBIN,URINE NEGATIVE (NEGATIVE); GLUCOSE, URINE (UA) NEGATIVE (NEGATIVE); KETONES,URINE (UA) NEGATIVE (NEGATIVE); LEUKOCYTE ESTERASE, URINE NEGATIVE (NEGATIVE); NITRITE,URINE NEGATIVE (NEGATIVE); OCCULT BLOOD,URINE NEGATIVE (NEGATIVE); PROTEIN,URINE NEGATIVE (NEGATIVE); UROBILINOGEN,URINE 0.2 (NORMAL) E.U./dL (NORMAL)
[2021-04-09 17:51] LABS: CLARITY,URINE CLEAR (CLEAR)
[2021-04-09 18:32] LABS: BASOPHILS % (AUTO) 0.3 %; EOSINOPHILS # (AUTO) 0.1 10^3/uL (0.0-0.7); EOSINOPHILS % (AUTO) 0.6 %; HCT - HEMATOCRIT 36.5 % (37.0-47.0); HGB - HEMOGLOBIN 12.1 g/dL (12.0-16.0); LYMPHOCYTES # (AUTO) 2.3 10^3/uL (1.5-3.5); MEAN CORPUSCULAR HGB CONC 33.2 g/dL (32.0-36.0); MEAN CORPUSCULAR VOLUME 84.5 fL (81.0-99.0); MEAN PLATELET VOLUME 10.5 fL (7.9-10.8); MONOCYTES # (AUTO) 0.9 10^3/uL (0.0-1.0); MONOCYTES % (AUTO) 7.6 %; NEUTROPHILS # (AUTO) 8.1 10^3/uL (1.5-6.6); NEUTROPHILS % (AUTO) 70.4 %; PLT - PLATELET COUNT 226 10^3/uL (130-450); RED BLOOD COUNT 4.32 10^6/uL (4.20-5.40); RED CELL DISTRIBUTION WIDTH 12.8 % (12.0-15.0); WHITE BLOOD COUNT 11.5 x10^3/uL (4.8-10.8)
[2021-04-09 18:41] LABS: ALBUMIN 3.9 g/dL (3.2-5.5); ALBUMIN/GLOBULIN RATIO 1.3 (1.0-2.2); BILIRUBIN,TOTAL 0.4 mg/dL (0.2-1.0); CREATININE 0.6 mg/dL (0.4-1.0); POTASSIUM 3.8 mmol/L (3.5-5.0); TOTAL PROTEIN 6.8 g/dL (6.7-8.2)
--- NOTE | 2021-04-09 18:46 | Ultrasound Report ---
PROCEDURE: OB Transvaginal INDICATIONS: CRAMPING, EVAL CX LENGTH OUTSIDE/PRIOR DATING DATA: Last menstrual period (LMP): 11/26/2020. LMP-based estimated date of delivery (MARIYA): 09/02/2021. First dating scan (date and location): 03/01/2021. Estimated date of delivery (MARIYA) from first dating scan: 09/12/2021. The below data below was generated using the report ultrasound MARIYA of 09/12/2021 TECHNIQUE: Real-time scanning was performed of the fetus, with image documentation. COMPARISON: 03/18/2021, 03/01/2021, 01/06/2021. FINDINGS: A single living intrauterine gestation is present. Presentation: Vertex Placenta: Placental position is anterior, without previa. Amniotic fluid index: 10.7 cm, within normal limits for gestational age. heart rate: 144 beats per minutes. Maternal cervical canal: 4.1 cm long; normal length is 2.5 cm or more. No endocervical fluid or funn eling identified. Estimated gestational age from initial scan: 17 weeks 5 days. IMPRESSION: 1. Single living intrauterine redemonstrated. 2. Cervix appears closed and normal in length. Reviewed by: Jah Irene MD on 04/09/2021 6:44 PM PDT Approved by: Jah Irene MD on 04/09/2021 6:44 PM PDT Station ID: [id number]
--- NOTE | 2021-04-09 18:59 | ED Physician Documentation ---
History of Present Illness - Stated complaint Stated Complaint: BLEEDING/CRAMPING - Chief complaint Chief Complaint: Abd Pain - Additonal information Additional information: 20-year-old female who is approximately 17 weeks was advised to come to the ER by her OB Dr. Rodriguez for evaluation of contractions. Dr. Rodriguez has been seeing her and she has been having contractions for more than 1 week. She was started on vaginal progesterone 1 week ago. She called her OB this afternoon because she felt that the contractions were increasing. He spoke with this provider and requested that we obtain an ultrasound to check her cervical radha gth. Dr. Rodriguez reports to me that the patient's mother has a history of multiple spontaneous miscarriages. This is a very desired for the patient and she is quite anxious. Review of Systems Constitutional: reports: Reviewed and negative Ears: reports: Reviewed and negative Nose: reports: Reviewed and negative Throat: reports: Reviewed and negative Cardiac: reports: Reviewed and negative Respiratory: reports: Reviewed and negative GI: reports: Other (Abdominal contraction) : denies: Dysuria, Vaginal bleeding Skin: reports: Reviewed and negative Musculoskeletal: reports: Reviewed and negative PD PAST MEDICAL HISTORY - Past Medical History Cardiovascular: None Respiratory: None Neuro: None Endocrine/Autoimmune: None Psych: Depression - Past Surgical History Past Surgical History: No - Present Medications Home Medications: Ambulatory Orders Medication Instructions Recorded Confirmed Pnv No.95/Ferrous Fum/Folic AC 1 tab PO DAILY 01/06/21 01/06/21 [ Caplet] cephALEXin [Keflex] 500 mg PO Q6H #20 cap 01/06/21 Progesterone,Micronized 200 mg PV DAILY 30 Days #30 cap 03/18/21 [Prometrium] - Allergies Allergies/Adverse Reactions: Allergies Allergy/AdvReac Type Severity Reaction Status Date / Time No Known Drug Allergies Allergy Verified 04/09/21 17:40 - Social History Does the pt smoke?: No Smoking Status: Never smoker Does the pt drink ETOH?: No Does the pt have substance abuse?: No - Immunizations Immunizations are current?: Yes PD ED PE NORMAL - General General: Alert and 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, No acute distress - Neck Neck: Supple, no meningeal sign, No adenopathy, Thyroid normal - Cardiac Cardiac: RRR, No murmur - Respiratory Respiratory: No respiratory distress, Clear bilaterally - Abdomen Abdomen: Normal bowel sounds, Soft, Non tender - Back Back: No CVA TTP, No spinal TTP - Derm Derm: Normal color, Warm and dry, No rash - Extremities Extremities: No deformity, No tenderness to palpate, Normal ROM s pain - Neuro Neuro: Alert and 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, supervisor shuttle preparation 2-12 intact, No motor deficit, Normal speech Eye Opening: Spontaneous Motor: Obeys Commands Verbal: Oriented GCS Score: 15 Results - Vitals Vitals: Vital Signs - 24 hr 04/09/21 17:35 Temperature 36.9 C Heart Rate 90 Respiratory 20 Rate Blood Pressure 121/65 O2 Saturation 100 Oxygen O2 Source Room air - Labs Labs: Laboratory Tests 04/09/21 04/09/21 04/09/21 17:41 18:25 18:25 WBC 11.5 H RBC 4.32 Hgb 12.1 Hct 36.5 L MCV 84.5 MCH 28.0 MCHC 33.2 RDW 12.8 Plt Count 226 MPV 10.5 Neut # (Auto) 8.1 H Lymph # (Auto) 2.3 [place] # (Auto) 0.9 Eos # (Auto) 0.1 Baso # (Auto) 0.0 Absolute Nucleated RBC 0.00 Nucleated RBC % 0.0 Sodium 136 Potassium 3.8 Chloride 101 Carbon Dioxide 24 Anion Gap 11.0 BUN 9 Creatinine 0.6 Estimated GFR (MDRD) 152 Glucose 91 Calcium 9.0 Total Bilirubin 0.4 AST 19 ALT 17 Alkaline Phosphatase 47 Total Protein 6.8 Albumin 3.9 Globulin 2.9 Albumin/Globulin Ratio 1.3 Urine Color YELLOW Urine Clarity CLEAR Urine pH 6.0 Ur Specific [place] <=1.005 Urine Protein NEGATIVE Urine Glucose (UA) NEGATIVE Urine Ketones NEGATIVE Urine Occult Blood NEGATIVE Urine Nitrite NEGATIVE Urine Bilirubin NEGATIVE Urine Urobilinogen 0.2 (NORMAL) Ur Leukocyte Esterase NEGATIVE Ur Microscopic Review NOT INDICATED Urine Culture Comments NOT INDICATED - Rads (name of study) pelvic US Radiology: Final report received (Single living intrauterine . Cervix appears closed and normal in length. 4.1 cm.) PD MEDICAL DECISION MAKING - ED course Complexity details: reviewed results, re-evaluated patient, d/w patient, d/w family ED course: 20-year-old female presents to the emergency department for evaluation of pelvic contractions at approximately 17 weeks gestation. She is currently applying vaginal prep progesterone for about the last week. Dr. Rodriguez requested an ultrasound to check for cervical length. Reassuringly the ultrasound today shows a normal cervical length. There were findings of posterior contractions. I discussed these results with her OB who recommended she go home continue follow-up with him. Return to the ER for vaginal bleeding, loss of fluids. Patient is Rh+. Impression: Single living intrauterine second trimester Check for cervical length Contractions. Departure - Departure Disposition: Home, Self Care Condition: Stable Record reviewed to determine appropriate education?: Yes Comments: I wish you well as you continue through the . Continue to follow with Dr. Heath. Continue to administer the vaginal progesterone as already prescribed. The ultrasound today shows that your cervical length is 4.1 cm. Your amniotic fluid level was normal. Your baby had a normal heart rate. The fire management technician felt that there were some posterior contractions in your uterus. The cause of these is not clear. You may work but no lifting heavier than 5 pounds. No sexual activity. Return to the ER for fevers, loss of fluids or vaginal bleeding.
== END 2021-04-09 20:26 | disposition home or self-care (01) ==
LOC: ED 17:23
DX: O62.9 Abnormality of forces of labor, unspecified (principal); Z3A.17 17 weeks gestation of pregnancy
CPT/HCPCS: 36415; 80053; 81001; 81003; 85025; 87086; 99283; 99284

== ENCOUNTER 2021-04-26 19:47 | Outpatient (CLI) | payer OTHER, MEDICAID ==
--- NOTE | 2021-04-27 14:27 | Ultrasound Report ---
PROCEDURE: OB Detailed Eval INDICATIONS: SUPERVISION OF NORMAL OUTSIDE/PRIOR DATING DATA: Last menstrual period (LMP): 11/26/2020. LMP-based estimated date of delivery (MARIYA): 05/02/2021. First dating scan (date and location): 03/01/2021. Estimated date of delivery (MARIYA) from first dating scan: 09/12/2021. The below data below was generated using the ultrasound derived MARIYA of 09/12/2021 TECHNIQUE: Real-time scanning was performed of the fetus, with image documentation and biometric measurements. COMPARISON: 01/06/2021, 03/01/2021, 03/18/2021, 04/09/2021. FINDINGS: General: A single living intrauterine gestation is present. Presentation: Vertex Placenta: Placental position is anterior fundal, without previa. Amniotic fluid index: 18 cm, within normal limits for gestational age. heart rate: 144 beats per minute. Maternal cervical canal: 4 cm long; normal length is 2.5 cm or more. Cervix appears closed. biometrics: Biparietal diameter: 4.9 cm, 20 weeks 6 days Head circumference: 18.3 cm, 20 weeks 5 days Abdominal circumference: 15.9 cm, 21 weeks Femur length: 3.4 cm, 20 weeks 4 days Estimated gestational age from initial scan: 20 weeks 1 day Composite gestational age from present scan: 20 weeks 6 days Estimated weight and percentile: 378 g, 82nd percentile Measurement variability in biometric dating: +/- 10 days from 12-20 weeks gestation, +/- 2 weeks from 20-30 weeks gestation, +/- 3 weeks at 30 weeks gestation or later. Anatomic survey: Neuro: Ventricles are normal at less than 10 mm. Cisterna magna and cerebellum were not well visual ized due to position. Nuchal skin fold: Not applicable. Face: Nose and lips, facial profile are normal. Spine: No definite evidence for spina bifida, with visualization limited on sagittal views. Heart: 4-chambered heart is present, with normal ventricular outflow tracts. Diaphragm: Diaphragm is intact. Stomach: Left-sided stomach is present. Kidneys: No hydronephrosis. Normal is less than 5 mm in 2nd trimester, less than 7 mm in 3rd trimester. Cord: 3 vessel cord has orthotopic insertion. Bladder: Normal in size. Extremities: All 4 extremities are visualized. IMPRESSION: 1. Single living intrauterine demonstrating interval growth with estimated weight at the 2nd percentile. 2. Posterior fossa not well visualized on anatomic survey. spine visualization was also l imited. Otherwise, no definite abnormality identified. Consider a repeat study in 2-4 weeks for furth er evaluation. Reviewed by: Jah Irene MD on 04/27/2021 2:26 PM PDT Approved by: Jah Irene MD on 04/27/2021 2:26 PM PDT Station ID: [id number]
== END 2021-04-26 19:48 | disposition home or self-care (01) ==
LOC: DI 19:47
PROVIDERS: ATTEND Obstetrics & Gynecology
DX: Z34.90 Encounter for supervision of normal pregnancy, unspecified, unspecified trimester (principal); Z36.89 Encounter for other specified antenatal screening

== ENCOUNTER 2021-05-23 16:50 | Outpatient (CLI) | payer OTHER, MEDICAID ==
[2021-05-23 21:06] LABS: BILIRUBIN,URINE NEGATIVE (NEGATIVE); GLUCOSE, URINE (UA) NEGATIVE (NEGATIVE); KETONES,URINE (UA) NEGATIVE (NEGATIVE); LEUKOCYTE ESTERASE, URINE NEGATIVE (NEGATIVE); NITRITE,URINE NEGATIVE (NEGATIVE); OCCULT BLOOD,URINE NEGATIVE (NEGATIVE); PROTEIN,URINE NEGATIVE (NEGATIVE); UROBILINOGEN,URINE 0.2 (NORMAL) E.U./dL (NORMAL)
[2021-05-23 21:07] LABS: CLARITY,URINE CLEAR (CLEAR)
== END 2021-05-23 16:51 | disposition home or self-care (01) ==
LOC: LAB.N 16:50
PROVIDERS: ATTEND Obstetrics & Gynecology
DX: O99.891 Other specified diseases and conditions complicating pregnancy (principal); R10.2 Pelvic and perineal pain
CPT/HCPCS: 36415; 81001; 81003; 85025; 86850

== ENCOUNTER 2021-05-25 22:31 | Outpatient (CLI) | payer OTHER, MEDICAID ==
[2021-05-25 22:59] VITALS: BP 129/72
--- NOTE | 2021-06-01 15:33 | PROCEDURE REPORT ---
- HPI Diagnosis/Indication for NST: Other (CONTRACTIONS) Current EDU 09/12/21 Gestation 24 Weeks and 2 Days 1 Para 0 Vital Signs Temperature 37.1 C 05/25/21 22:42 Heart Rate 109 H 05/25/21 22:42 Respiratory Rate 18 05/25/21 22:42 Blood Pressure 129/73 05/25/21 22:42 O2 Saturation 99 05/25/21 22:42 Temperature 37.1 C 05/25/21 22:44 Heart Rate 107 H 05/25/21 22:44 Respiratory Rate 18 05/25/21 22:44 Blood Pressure 129/72 05/25/21 22:44 O2 Saturation 99 05/25/21 22:44 - Results and Plan Findings/Impression: BASELINE 140 CONTRACTIONS NONE MODERATE VARRIBILITY ACCELERATIONS SEEN Plan: REACTIVE STRIP WITH OUT CONTRACTIONS NEGATIVE FFN
== END 2021-05-26 | disposition home or self-care (01) ==
LOC: WFO 22:31 → FBP 22:32 → WFO 05-26
PROVIDERS: ATTEND Obstetrics & Gynecology
DX: O99.891 Other specified diseases and conditions complicating pregnancy (principal); R10.32 Left lower quadrant pain; Z3A.24 24 weeks gestation of pregnancy
CPT/HCPCS: 36415; 82731; 99214; 99215

== ENCOUNTER 2021-06-09 15:27 | Outpatient (CLI) | payer OTHER, MEDICAID ==
[2021-06-09 20:36] LABS: HCT - HEMATOCRIT 36.8 % (37.0-47.0); HGB - HEMOGLOBIN 11.7 g/dL (12.0-16.0); MEAN CORPUSCULAR HEMOGLOBIN 28.1 pg (27.0-31.0); MEAN CORPUSCULAR HGB CONC 31.8 g/dL (32.0-36.0); MEAN CORPUSCULAR VOLUME 88.5 fL (81.0-99.0); MEAN PLATELET VOLUME 11.6 fL (7.9-10.8); RED BLOOD COUNT 4.16 10^6/uL (4.20-5.40); RED CELL DISTRIBUTION WIDTH 13.2 % (12.0-15.0); WHITE BLOOD COUNT 10.8 x10^3/uL (4.8-10.8)
== END 2021-06-09 15:28 | disposition home or self-care (01) ==
LOC: LAB.N 15:27
PROVIDERS: ATTEND Obstetrics & Gynecology
DX: Z34.90 Encounter for supervision of normal pregnancy, unspecified, unspecified trimester (principal); Z36.89 Encounter for other specified antenatal screening
CPT/HCPCS: 36415; 82950; 85027

== ENCOUNTER 2021-06-20 04:11 | Emergency (ER) | payer OTHER, MEDICAID ==
--- NOTE | 2021-06-20 05:07 | ED Physician Documentation ---
PD HPI BACK PAIN - Stated complaint Stated Complaint: LOWER BACK PAIN, 7 MONTHS - Chief complaint Chief Complaint: Back Pain - History obtained from History obtained from: Patient - History of Present Illness Timing - onset: Enter time (15:00), Yesterday Timing - details: Gradual onset Location: Lower, Right Quality: Pain Associated symptoms: No: Fever, Weakness, Numbness, Incontinent of urine, Unable to urinate, Hematuria Improves with: Rest Worsened by: Movement Similar symptoms before: Other (has had similar symptoms before but has not been evaluated) Recently seen: Not recently seen - Additional information Additional information: BIBA. Patient is 28 weeks , c/o right low back pain that radiates down posterior aspect of RLE to distal thigh. She denies injury, fever, weakness, numbness. pain is distinctly worse with movement. She has not taken any medications including OTC for this pain Review of Systems Constitutional: denies: Fever : reports: Now EGA (28 weeks). denies: Dysuria, Frequency Musculoskeletal: reports: Back pain. denies: Extremity swelling Neurologic: denies: Focal weakness, Numbness PD PAST MEDICAL HISTORY - Past Medical History Past Medical History: Yes Cardiovascular: None Respiratory: None Neuro: None Endocrine/Autoimmune: None Psych: Depression Other Past Medical History: Sciatica - Past Surgical History Past Surgical History: No - Present Medications Home Medications: Ambulatory Orders Medication Instructions Recorded Confirmed Pnv No.95/Ferrous Fum/Folic AC 1 tab PO DAILY 01/06/21 06/20/21 [ Caplet] Acetaminophen/Cod 300/30 [Tylenol 1 - 2 each PO Q6HR PRN #14 tablet 06/20/21 #3] Cyclobenzaprine [Flexeril] 10 mg PO TID PRN #14 tablet 06/20/21 - Allergies Allergies/Adverse Reactions: Allergies Allergy/AdvReac Type Severity Reaction Status Date / Time No Known Drug Allergies Allergy Verified 04/09/21 17:40 - Social History Does the pt smoke?: No Smoking Status: Never smoker Does the pt drink ETOH?: No Does the pt have substance abuse?: No - Immunizations Immunizations are current?: Yes PD ED PE NORMAL - Vitals Vital signs reviewed: Yes - General General: Alert and 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, No acute distress, Well developed/nourished - Abdomen Abdomen: Soft, Non tender, Other (gravid appearance appropriate to EGA) - Back Back: No spinal TTP - Derm Derm: Normal color, Warm and dry - Extremities Extremities: No tenderness to palpate, No edema, No calf tenderness / cord - Neuro Neuro: No motor deficit, No sensory deficit Results - Vitals Vitals: Oxygen O2 Source Room air PD MEDICAL DECISION MAKING - ED course Complexity details: considered differential, d/w patient ED course: Atraumatic right low back pain radiating down RLE, distinctly worse with movement, c/w sciatica. No elements of H+P to suggest emergent pathology and no emergent testing indicated at this time. We discussed options for pain control in setting of ; tylenol with codeine and flexeril given in ED with prescriptions provided at time of discharge. Departure - Departure Disposition: 01 Home, Self Care Clinical Impression: Sciatica Qualifiers: Laterality: right Qualified Code(s): M54.31 - Sciatica, right side Condition: Good Instructions: ED Sciatica Follow-Up: EL TONY MD [Primary Care Provider] - Prescriptions: Acetaminophen/Cod 300/30 [Tylenol #3] 1 - 2 each PO Q6HR PRN #14 tablet PRN Reason: Pain Cyclobenzaprine [Flexeril] 10 mg PO TID PRN #14 tablet PRN Reason: Spasms Comments: Prescriptions for flexeril (muscle relaxant) and tylenol with codeine have [facility] ([place], [place]) in [place]. I am prescribing a short course of narcotic pain medication for you. These are potentially dangerous and addictive medications that should be used carefully. These medications may constipate you. Take an [id number] stool softener (docusate) twice daily with plenty of water while taking these medications. If you go 24 hours without a bowel movement, take gtjc-[id number] miralax, per package instructions. Do not drink or drive while taking these medications. If you received narcotic or sedating medications while in the emergency department, do not drive for 24 hours. Store this medication in a safe, secure place and out of reach of children. It is a violation of federal law to give or sell this medication to another person or to use in a manner other than prescribed. The ED will not refill narcotic prescriptions, including prescriptions lost or stolen. To dispose of unwanted medications: 1. [facility] at [address] in [place] has a medication drop box. They accept prescription medications (in pill form) Saturday through Saturday 9:00 a.m. to 5:00 p.m. 2. The [facility] [employer] accepts prescription medications (in pill form only) for disposal year round. Call for more information. 3. Contact the [facility] for the next [facility] sponsored prescription drug collection event. , [phone], or [phone]; Discharge Date/Time: 06/20/21 07:10
[2021-06-20] MEDS ORDERED: DEXAMETHASONE 10 MG/ML VIAL PO STA (05:35)
[2021-06-20] MEDS ORDERED: ACETAMINOPHEN/CODEINE 300 MG/30 MG TABLET PO STA (05:35)
[2021-06-20] MEDS ORDERED: CYCLOBENZAPRINE 10 MG TABLET PO STA (05:35)
[2021-06-20] MEDS ORDERED: CHERRY SYRUP 10 ML UDC PO ONE (05:35)
[2021-06-20 06:51] VITALS: BP 142/89
== END 2021-06-20 07:10 | disposition home or self-care (01) ==
LOC: EDUNIT# → SUPCPDRO 04:11 → ED 04:11
DX: O99.891 Other specified diseases and conditions complicating pregnancy (principal); M54.31 Sciatica, right side; Z3A.28 28 weeks gestation of pregnancy
CPT/HCPCS: 99283; A9270

== ENCOUNTER 2021-07-21 23:18 | Outpatient (CLI) | payer OTHER, MEDICAID ==
--- NOTE | 2021-07-21 23:41 | PROVIDER PROGRESS NOTE ---
- HPI Chief Complaint: Decreased movement - Exam 20yo at 32 weeks 3/7 days IUPwho has not felt her baby move "all day". Patient states she has a "doppler at home" and heard heart tones. I explained she could be hearing her own heart beat. Patient denies contractions, SROM, vaginal bleeding. Patient states at one point she had shortened cervix and then told it's no longer shortened so she was taken off the medication. O-VSS, afebrile General: Patient is sitting on stretcher in no apparent distress. Chest: Clear to auscultation. Good breath sounds in all marsh. Heart: RRR without murmur or gallop. Abdomen: Soft, non-tender to palpation. Gravid. Size appropriate for dates. Heart tones in 150's with moderate variability. Bedside ultrasound performed: Breech presentation with head in Patient's Left upper quadrant. Several large pockets of amniotic fluid seen. Placenta anterior and fundal, more on patient's left. Good breathing movement seen. Good movement and tone seen. Ultrasound last done 04/27/21 and fetus was vertex. Cervical length was 4cm. NST:150 baseline heart rate. Moderate Variability. Accelerations 15X15 are present. No Decelerations. Reactive NST, Category I Monitor strip. A-IUP 32 3/7, Breech presentation P- Discharge to home. Kick counts instructed and patient understands. Keep all appointments. Call and return to Labor and Delivery for concerns. - Procedures OB Procedure Performed: NST Diagnosis/Indication for NST: Decreased movement
[2021-07-22 00:17] VITALS: BP 136/70
== END 2021-07-22 00:33 | disposition home or self-care (01) ==
LOC: WFO 23:18 → FBP 23:19 → WFO 07-22 00:33
PROVIDERS: ATTEND Obstetrics & Gynecology
DX: O36.8130 Decreased fetal movements, third trimester, not applicable or unspecified (principal); O32.1XX0 Maternal care for breech presentation, not applicable or unspecified; Z3A.32 32 weeks gestation of pregnancy
CPT/HCPCS: 59025; 99214

== ENCOUNTER 2021-07-25 16:07 | Outpatient (CLI) | payer OTHER, MEDICAID ==
--- NOTE | 2021-07-26 17:44 | Ultrasound Report ---
PROCEDURE: OB F/U or Repeat INDICATIONS: EXCESSIVE WEIGHT GAIN IN OUTSIDE/PRIOR DATING DATA: Last menstrual period (LMP): 11/26/2020. LMP-based estimated date of delivery (MARIYA): 09/02/2021. First dating scan (date and location): 02/09/2021. Estimated date of delivery (MARIYA) from first dating scan: 09/12/2021. The below data below was generated using the MARIYA of 09/12/2021 TECHNIQUE: Real-time scanning was performed of the fetus, with image documentation and biometric measurements. Endovaginal scanning: No COMPARISON: Prior OB ultrasound dated 04/26/2021 FINDINGS: General: A single living intrauterine gestation is present. Presentation: Breech Placenta: Placental position is anterior, without previa. Amniotic fluid index: 23.0 cm, upper limits of normal for gestational age. heart rate: 157 beats per minute. Maternal cervical canal: 2.3 cm long; normal length is 2.5 cm or more. biometrics: Biparietal diameter: 35 weeks 6 days Head circumference: 36 weeks 5 days Abdominal circumference: 36 weeks 5 days Femur length: 36 weeks 5 days Estimated gestational age from initial scan: 33 weeks. Composite gestational age from present scan: 36 weeks 3 days Estimated weight and percentile: 299 8 g, 100 percentile Measurement variability in biometric dating: +/- 10 days from 12-20 weeks gestation, +/- 2 weeks from 20-30 weeks gestation, +/- 3 weeks at 30 weeks gestation or more. Other: Not applicable. IMPRESSION: Single living IUP redemonstrated and estimated weight is at the 100 percentile for gestational age, consistent with macrosomia. Recommend close clinical correlation and follow-up. Reviewed by: PHILIP Vicente on 07/26/2021 5:43 PM PDT Approved by: Kurtis Perez MD on 07/26/2021 5:43 PM PDT Station ID: [id number]
== END 2021-07-25 16:08 | disposition home or self-care (01) ==
LOC: DI 16:07
PROVIDERS: ATTEND Obstetrics & Gynecology
DX: O26.03 Excessive weight gain in pregnancy, third trimester (principal); Z3A.36 36 weeks gestation of pregnancy

== ENCOUNTER 2021-08-06 03:07 | Outpatient (CLI) | payer OTHER, MEDICAID ==
[2021-08-06 03:58] VITALS: BP 116/57
--- NOTE | 2021-08-07 15:50 | PROCEDURE REPORT ---
- HPI Diagnosis/Indication for NST: Decreased movement Current EDU 09/12/21 Gestation 34 Weeks and 5 Days 1 Para 0 Vital Signs Temperature 98.1 F 08/06/21 03:26 Heart Rate 112 H 08/06/21 03:26 Respiratory Rate 18 08/06/21 03:26 Blood Pressure 116/57 L 08/06/21 03:26 Temperature 98.1 F 08/06/21 03:26 Heart Rate 112 H 08/06/21 03:26 Respiratory Rate 18 08/06/21 03:26 Blood Pressure 116/57 L 08/06/21 03:26 O2 Saturation - NST Procedure NST Procedure Start Date 08/06/21 Start Time 03:10 Stop Time 03:40 Vibroacoustic Stimulation Used No Patient States Movement No EFM 135 mod josy 15x15 accels no decels TOCO: irritable - Results and Plan Findings/Impression: 20 yo at 34+5 wga here with decreased movement. Plan: Cat I tracing Warning signs reviewed Continue with routine OB care DOS: 08/06/21 NST read: 08/06/21
== END 2021-08-06 03:40 | disposition home or self-care (01) ==
LOC: WFO 03:07 → FBP 03:08 → WFO 03:40
PROVIDERS: ATTEND Obstetrics & Gynecology
DX: O36.8130 Decreased fetal movements, third trimester, not applicable or unspecified (principal); Z3A.34 34 weeks gestation of pregnancy
CPT/HCPCS: 59025; 99213

== ENCOUNTER 2021-08-18 07:00 | Outpatient (CLI) | payer OTHER, MEDICAID | END 2021-08-18 23:59 | disposition home or self-care (01) | LOC: LAB 07:00 | PROVIDERS: ATTEND Obstetrics & Gynecology | DX: Z36.85 Encounter for antenatal screening for Streptococcus B (principal) | CPT/HCPCS: 87797 ==

== ENCOUNTER 2021-08-23 18:41 | Outpatient (CLI) | payer OTHER, MEDICAID ==
[2021-08-23 20:27] VITALS: BP 121/75
[2021-08-23 21:26] LABS: BILIRUBIN,URINE NEGATIVE (NEGATIVE); GLUCOSE, URINE (UA) NEGATIVE (NEGATIVE); KETONES,URINE (UA) NEGATIVE (NEGATIVE); LEUKOCYTE ESTERASE, URINE SMALL (NEGATIVE); NITRITE,URINE NEGATIVE (NEGATIVE); OCCULT BLOOD,URINE SMALL (NEGATIVE); PH,URINE 6.5 PH (5.0-7.5); PROTEIN,URINE NEGATIVE (NEGATIVE); UROBILINOGEN,URINE 0.2 (NORMAL) E.U./dL (NORMAL)
[2021-08-23 21:36] LABS: CLARITY,URINE HAZY (CLEAR)
[2021-08-23 21:37] LABS: BACTERIA,URINE Few /HPF (None Seen); SQUAMOUS EPITHELIAL CELL,UR MANY Squamous (<= Few); STARCH,URINE PRESENT
--- NOTE | 2021-08-24 16:29 | Ultrasound Report ---
PROCEDURE: OB F/U or Repeat INDICATIONS: EXCESS WEIGHT GAIN IN OUTSIDE/PRIOR DATING DATA: Last menstrual period (LMP): 11/26/2020. LMP-based estimated date of delivery (MARIYA): 09/02/2021. First dating scan (date and location): 03/01/2021. Estimated date of delivery (MARIYA) from first dating scan: 09/12/2021. The below data below was generated using the ultrasound MARIYA of 09/12/2021 TECHNIQUE: Real-time scanning was performed of the fetus, with image documentation and biometric measurements. COMPARISON: OB ultrasound 09/24/2021, 04/26/2021, 03/01/2021 FINDINGS: General: A single living intrauterine gestation is present. Presentation: Breech Placenta: Placental position is anterior, without previa. Amniotic fluid index: 19.7 cm, within normal limits for gestational age. Largest pocket 6.7 cm heart rate: 164 beats per minute. Maternal cervical canal: 3.8 cm long; normal length is 2.5 cm or more. biometrics: Biparietal diameter: 9.9 cm 40 weeks 4 days Head circumference: 35.4 cm 41 weeks 2 days Abdominal circumference: 36.8 cm 40 weeks 5 days Femur length: 7.7 cm 31 weeks 1 day Estimated gestational age from initial scan: 37 weeks 1 day Composite gestational age from present scan: 40 weeks 3 days Estimated weight and percentile: 4089 g 99 .5th percentile Measurement variability in biometric dating: +/- 10 days from 12-20 weeks gestation, +/- 2 weeks from 20-30 weeks gestation, +/- 3 weeks at 30 weeks gestation or more. Other: Not applicable. IMPRESSION: 1. Single live intrauterine with ultrasound gestational age today of 40 weeks 3 days compar ed to 37 weeks 1 day by initial ultrasound. 2. weight is noted at the 99.5th percentile. This remains consistent with previously reported m acrosomia. Reviewed by: Marina Aguayo MD on 08/24/2021 4:28 PM PST Approved by: Marina Aguayo MD on 08/24/2021 4:28 PM PST Station ID: [id number]
== END 2021-08-23 20:58 | disposition home or self-care (01) ==
LOC: DI 18:41 → FBP 19:50 → DI 20:58
PROVIDERS: ATTEND Obstetrics & Gynecology
DX: O26.03 Excessive weight gain in pregnancy, third trimester (principal); Z3A.40 40 weeks gestation of pregnancy
CPT/HCPCS: 81001; 87086; 99213

== ENCOUNTER 2021-08-23 21:59 | Inpatient (IN) | payer OTHER, MEDICAID ==
--- NOTE | 2021-08-23 22:57 | PROVIDER PROGRESS NOTE ---
- HPI Chief Complaint: Other (Pain in right flank/back and comes to right side of abdomen.) Current : Vital Signs Temperature 99.1 F 08/23/21 22:32 Heart Rate 85 08/23/21 22:32 Respiratory Rate 20 08/23/21 22:32 Blood Pressure 140/54 H 08/23/21 22:32 Temperature 99.1 F 08/23/21 22:32 Heart Rate 85 08/23/21 22:32 Respiratory Rate 20 08/23/21 22:32 Blood Pressure 140/54 H 08/23/21 22:32 O2 Saturation - Exam 20yo at 37 0/7 weeks. having right flank and right side of abdomen pain. Patient is feeling some"cramping" but the pain that is 9/10 is on her right flank and back and right side of abdomen. Patient denies fever, nausea or vomiting. Patient denies history of kidney stones or kidney infections with this . Pain started this afternoon. Patient was able to eat normally earlier today. O- T=99.1 General: Patient appears to be in pain/moderate distress. Chest: Clear to auscultation. Good breath sounds in all marsh. No CVA tenderness. Pain to palpation in lattisimus dorsi muscle on right side/flank. Heart: RRR without murmur or gallop Abdomen: soft, non-tender to palpation. No guarding or rebound noted. Extremities: No pitting edema Ultrasound earlier today revealed breech presentation. Large for Gestational age infant according to patient's report. Patient sates infant measured at or close to 9 pounds today. Report from radiologist not available at this time. NST: 130 with moderate variability. Accelerations are present. Uterine irritability is present. Patient is feeling a small amount of cramping, not "contractions" only feels it on right side of abdomen. Reactive NST. CBC and CMP are within normal limits. WBC is normal. No signs of infections. Discussed with patient and that since her pain has completely resolved she may have been experiencing a kidney stone. There were oxalate crystals in her urine. Patient was experiencing 9/10 pain and now states its 1/10. As we were sitting and discussing options pain returned a second time and became very intense. A-IUP 37 0/7 with right flank/back pain. Breech presentation. Probable Renal Lithiasis P-Admit for observation, IV hydration and Strain urine for kidney stone. IV pain medication. Second Cath urine is still pending. - Procedures NST Procedure: NST Procedure Start Time 03:10 Stop Time 03:40
[2021-08-23 23:29] LABS: BASOPHILS % (AUTO) 0.2 %; EOSINOPHILS % (AUTO) 0.4 %; HCT - HEMATOCRIT 35.2 % (37.0-47.0); HGB - HEMOGLOBIN 11.4 g/dL (12.0-16.0); LYMPHOCYTES # (AUTO) 1.4 10^3/uL (1.5-3.5); LYMPHOCYTES % (AUTO) 14.3 %; MEAN CORPUSCULAR HEMOGLOBIN 27.7 pg (27.0-31.0); MEAN CORPUSCULAR HGB CONC 32.4 g/dL (32.0-36.0); MEAN CORPUSCULAR VOLUME 85.4 fL (81.0-99.0); MEAN PLATELET VOLUME 11.4 fL (7.9-10.8); MONOCYTES % (AUTO) 10.3 %; NEUTROPHILS # (AUTO) 7.4 10^3/uL (1.5-6.6); NEUTROPHILS % (AUTO) 73.9 %; PLT - PLATELET COUNT 153 10^3/uL (130-450); RED BLOOD COUNT 4.12 10^6/uL (4.20-5.40); RED CELL DISTRIBUTION WIDTH 13.2 % (12.0-15.0)
[2021-08-23 23:39] LABS: ALBUMIN 3.1 g/dL (3.2-5.5); BILIRUBIN,TOTAL 0.4 mg/dL (0.2-1.0); CALCIUM 8.8 mg/dL (8.5-10.3); CREATININE 0.6 mg/dL (0.4-1.0); POTASSIUM 3.6 mmol/L (3.5-5.0); TOTAL PROTEIN 6.3 g/dL (6.7-8.2)
[2021-08-24 00:59] LABS: BACTERIA,URINE Rare /HPF (None Seen); BILIRUBIN,URINE NEGATIVE (NEGATIVE); CLARITY,URINE CLEAR (CLEAR); GLUCOSE, URINE (UA) NEGATIVE (NEGATIVE); KETONES,URINE (UA) NEGATIVE (NEGATIVE); LEUKOCYTE ESTERASE, URINE NEGATIVE (NEGATIVE); NITRITE,URINE NEGATIVE (NEGATIVE); OCCULT BLOOD,URINE MODERATE (NEGATIVE); PH,URINE 6.5 PH (5.0-7.5); PROTEIN,URINE NEGATIVE (NEGATIVE); SQUAMOUS EPITHELIAL CELL,UR MANY Squamous (<= Few); UROBILINOGEN,URINE 0.2 (NORMAL) E.U./dL (NORMAL); WBC,URINE 0-3 /HPF (0-5)
[2021-08-24] MEDS ORDERED: fentaNYL 100 MCG/2 ML VIAL IVP PRN (01:01)
[2021-08-24] MEDS: ONDANSETRON 4 MG/2 ML VIAL IVP PRN ×3 (01:50→21:18)
[2021-08-24] MEDS: ceFAZolin 2 GM in SODIUM CHLORIDE 0.9% MINIBAG 100 ML IV SCH ×2 (02:13→10:15)
[2021-08-24] MEDS: SODIUM CHLORIDE 0.9% 1,000 ML IV SCH ×3 (02:13→19:17)
[2021-08-24] MEDS: HYDROmorphone 2 MG/ML VIAL IVP PRN ×6 (08:20→21:18)
--- NOTE | 2021-08-24 10:14 | Ultrasound Report ---
PROCEDURE: Retroperitoneal INDICATIONS: Flank pain. TECHNIQUE: Real-time scanning was performed of the retroperitoneal organs, with image documentation. COMPARISON: None. FINDINGS: Kidneys: Kidneys are normal in size. Right kidney measures 12.0 cm long; left kidney measures 12.2 cm long. Right renal cortical thickness is 1.62 cm; left renal cortical thickness is 1.53 cm. There is mild right hydronephrosis. No solid masses or nephrolithiasis. Bladder is grossly normal. Both ureteral jets were visualized. IMPRESSION: 1. Mild right hydronephrosis. The preliminary result was given to Dr. Estrada by precision inspector. Reviewed by: Kurtis Perez MD on 08/24/2021 10:12 AM [facility] Approved by: Kurtis Perez MD on 08/24/2021 10:12 AM [facility] Station ID: [id number]
--- NOTE | 2021-08-24 16:22 | PROVIDER PROGRESS NOTE ---
Subjective - Prog Note Date Prog Note Date: 08/24/21 Prog Note Time: 16:20 - Subjective Pt reports feeling: No change (Patient states she is still requiring IV pain medication for 10/10 pain every 2-3 hours.) Subjective: 20yo at 37 1/7 weeks with Right flank pain and hematuria. Patient is having 10/10 pain every 2-4 hours that requires IV pain medication. Patient reports good movement. Patient thought she was having contractions. Patient is tolerating her diet well. Objective - Vital Signs/Intake & Output Reviewed Vital Signs: Yes Vital Signs: Vital Signs x48h Temp Pulse Resp BP BP Pulse Ox 08/24/21 15:30 208.0 F H 84 22 133/85 H 140/93 H 99 Intake & Output: Intake & Output 08/21/21 08/22/21 08/23/21 08/24/21 23:59 23:59 23:59 23:59 Intake Total 1100 Balance 1100 - Objective General Appearance: positive: Mild distress Respiratory: positive: Breath sounds nml, Other (No CVA tenderness.) Cardiovascular: positive: Regular rate & rhythm. negative: No murmur, No gallop Abdomen: positive: Non-tender, Other (Gravid). negative: Guarding, Rebound Extremities: positive: No pedal edema Neurologic/Psychiatric: positive: Oriented x3 Reflexes: Knee (R): 2+ - Lab Results Fish Bones: 08/23/21 23:22 08/23/21 23:22 Other Labs: Lab Results x24hrs 08/23/21 08/23/21 08/23/21 Range/Units 23:22 23:22 23:11 WBC 10.0 (4.8-10.8) x10^3/uL RBC 4.12 L (4.20-5.40) 10^6/uL Hgb 11.4 L (12.0-16.0) g/dL Hct 35.2 L (37.0-47.0) % MCV 85.4 (81.0-99.0) fL MCH 27.7 (27.0-31.0) pg MCHC 32.4 (32.0-36.0) g/dL RDW 13.2 (12.0-15.0) % Plt Count 153 (130-450) 10^3/uL MPV 11.4 H (7.9-10.8) fL Neut # (Auto) 7.4 H (1.5-6.6) 10^3/uL Lymph # (Auto) 1.4 L (1.5-3.5) 10^3/uL [place] # (Auto) 1.0 (0.0-1.0) 10^3/uL Eos # (Auto) 0.0 (0.0-0.7) 10^3/uL Baso # (Auto) 0.0 (0.0-0.1) 10^3/uL Absolute Nucleated RBC 0.00 x10^3/uL Nucleated RBC % 0.0 /100WBC Sodium 135 (135-145) mmol/L Potassium 3.6 (3.5-5.0) mmol/L Chloride 104 (101-111) mmol/L Carbon Dioxide 19 L (21-32) mmol/L Anion Gap 12.0 (6-13) BUN 8 (6-20) mg/dL Creatinine 0.6 (0.4-1.0) mg/dL Estimated GFR (MDRD) 152 (>89) Glucose 86 (70-100) mg/dL Calcium 8.8 (8.5-10.3) mg/dL Total Bilirubin 0.4 (0.2-1.0) mg/dL AST 17 (10-42) IU/L ALT 11 (10-60) IU/L Alkaline Phosphatase 80 (42-121) IU/L Total Protein 6.3 L (6.7-8.2) g/dL Albumin 3.1 L (3.2-5.5) g/dL Globulin 3.2 (2.1-4.2) g/dL Albumin/Globulin Ratio 1.0 (1.0-2.2) Urine Color YELLOW Urine Clarity CLEAR (CLEAR) Urine pH 6.5 (5.0-7.5) PH Ur Specific [place] 1.015 (1.002-1.030) Urine Protein NEGATIVE (NEGATIVE) mg/dL Urine Glucose (UA) NEGATIVE (NEGATIVE) mg/dL Urine Ketones NEGATIVE (NEGATIVE) mg/dL Urine Occult Blood MODERATE H (NEGATIVE) Urine Nitrite NEGATIVE (NEGATIVE) Urine Bilirubin NEGATIVE (NEGATIVE) Urine Urobilinogen 0.2 (NORMAL) (NORMAL) E.U./dL Ur Leukocyte Esterase NEGATIVE (NEGATIVE) Urine RBC 6-10 H (0-5) /HPF Urine WBC 0-3 (0-5) /HPF Ur Squamous Epith Cells MANY Squamous H (<= Few) Urine Bacteria Rare (None Seen) /HPF Urine Culture Comments NOT INDICATED Assessment/Plan - Problem List (1) Hematuria Qualifiers: Hematuria type: unspecified type Qualified Code(s): R31.9 - Hematuria, unspecified (3) Hematuria, undiagnosed cause Impression: Probable Renal Lithiasis. IUP 37 10/13, Breech presentation, Severe Pain that is intermittent that is consistent with Renal Lithiasis in . P- Keep patient in Observation until tomorrow morning, utilizing IV pain medication to keep her comfortable. Continue to strain urine.
[2021-08-24] MEDS: TAMSULOSIN 0.4 MG CAPSULE PO SCH (17:39)
[2021-08-25] MEDS: HYDROmorphone 2 MG/ML VIAL IVP PRN ×4 (00:01→11:05)
[2021-08-25] MEDS: fentaNYL 100 MCG/2 ML VIAL IVP PRN ×2 (03:35→05:00)
[2021-08-25] MEDS: SODIUM CHLORIDE 0.9% 1,000 ML IV SCH ×2 (03:35→11:08)
[2021-08-25] MEDS ORDERED: fentaNYL 100 MCG/2 ML VIAL IVP ONE (04:50)
[2021-08-25] MEDS: ONDANSETRON 4 MG/2 ML VIAL IVP PRN (08:17)
[2021-08-25] MEDS ORDERED: oxyCODONE 5 MG TABLET PO PRN ×2 (08:21→13:02)
--- NOTE | 2021-08-25 08:47 | PROVIDER PROGRESS NOTE ---
Progress Note Subjective: Patient got several hours of sleep overnight. She did have significant trouble with pain control in the middle the night and began c ontracting. She was checked twice and did not make cervical change, and contractions appear to be related to pain control. Like MCI again, her pain had restarted. She received a dose of Dilaudid, this is not significantly helped the pain. She is experiencing right-sided flank pain, but does say the pain is migrating down towards her low back and occasionally on the left as well. Subjective: Physical Temp Pulse Resp BP Pulse Ox 97.9 F 86 19 131/71 H 95 08/25/21 03:40 08/25/21 03:40 08/25/21 03:40 08/25/21 03:40 08/25/21 03:40 Constitutional: alert, and oriented. Moderate distress. Appears in significant pain but this comes in waves. Skin: normal turgor, normal color. Head: atraumatic, normocephalic. Cardiovascular: RRR. Respiratory: no respiratory distress. Abdomen: Gravid, uterus feels firm. Nondistended, nontender. No CVA tenderness. Neurologic: normal, sensation intact, motor intact. Psych: affect and mood appropriate, normal interaction, good eye contact. NST: 140 beats per baseline, moderate variability, accelerations present, no decelerations. Mentor: Irritable Assessment and plan 20-year-old at 37 weeks 3 days gestation with right nephrolithiasis 1. Right nephrolithiasis -Continue IV pain control. We will add p.o. medication and attempt to get longer lasting control. -Continue tamsulosin 0.4 mg daily. Discussed this takes several days to work on average, with an average of about 3 days but trials of several weeks may be necessary. -Will recheck labs, but appears to be nephrolithiasis. She has no leukocytosis or fever. Urinalysis only concerning for hematuria. No significant bacteria or nitrites. Alkaline phosphatase was normal. We will recheck labs today. 2. 37 weeks gestation -Restart vitamins -Patient with intermittent contractions, does not appear to be in labor. We did discuss the risk and benefits of a . Discussed that if she continues to contract and we cannot get her pain under control, or if she shows significant change in her cervical exam we will likely have to proceed with section. Discussed the risk and benefits of an early term delivery and the risk of TTN. -CBC, CMP, Type and screen ordered. -NPO except meds and sips. 3. Depression -We will restart home sertraline
[2021-08-25 09:34] LABS: BASOPHILS % (AUTO) 0.1 %; EOSINOPHILS % (AUTO) 0.3 %; HCT - HEMATOCRIT 32.7 % (37.0-47.0); HGB - HEMOGLOBIN 10.6 g/dL (12.0-16.0); LYMPHOCYTES % (AUTO) 10.7 %; MEAN CORPUSCULAR HEMOGLOBIN 27.6 pg (27.0-31.0); MEAN CORPUSCULAR HGB CONC 32.4 g/dL (32.0-36.0); MEAN CORPUSCULAR VOLUME 85.2 fL (81.0-99.0); MEAN PLATELET VOLUME 11.2 fL (7.9-10.8); MONOCYTES # (AUTO) 0.7 10^3/uL (0.0-1.0); MONOCYTES % (AUTO) 7.5 %; NEUTROPHILS # (AUTO) 7.4 10^3/uL (1.5-6.6); NEUTROPHILS % (AUTO) 80.5 %; PLT - PLATELET COUNT 143 10^3/uL (130-450); RED BLOOD COUNT 3.84 10^6/uL (4.20-5.40); RED CELL DISTRIBUTION WIDTH 13.2 % (12.0-15.0); WHITE BLOOD COUNT 9.1 x10^3/uL (4.8-10.8)
[2021-08-25 09:45] LABS: ALBUMIN 3.1 g/dL (3.2-5.5); ALKALINE PHOSPHATASE 79 IU/L (42-121); ALT ALANINE AMINOTRANSFERASE < 10 IU/L (10-60); AST ASPARTATE AMINOTRANSFERASE 15 IU/L (10-42); BILIRUBIN,TOTAL 0.7 mg/dL (0.2-1.0); BUN - BLOOD UREA NITROGEN 6 mg/dL (6-20); CALCIUM 8.8 mg/dL (8.5-10.3); CARBON DIOXIDE - CO2 17 mmol/L (21-32); CHLORIDE 100 mmol/L (101-111); CREATININE 0.8 mg/dL (0.4-1.0); GFR - MDRD 109 (>89); GLUCOSE 91 mg/dL (70-100); POTASSIUM 3.6 mmol/L (3.5-5.0); SODIUM 130 mmol/L (135-145); TOTAL PROTEIN 6.3 g/dL (6.7-8.2)
--- NOTE | 2021-08-25 15:00 | PROVIDER PROGRESS NOTE ---
Subjective - Prog Note Date Prog Note Date: 08/25/21 Prog Note Time: 15:00 - Subjective Subjective: 20 yo at 37+2 wga here with rightsided flank pain attributedto nephrolithiasis. Patient was admitted on 08/23/21 with severe right flank pain. To date, pain has been managed with dilaudid, oxycodone, REFLOW OPERATOR. Reviewed that she is at risk of spontaneous labor and/or SROM, which would prompt urgent delivery given breech positioning. In addition, she has had nearly two days of narcotics exposure with no mitigation of clinical scenario. Continued narcotics exposure at this late gestational age will place fetus at risk of MAIK post delivery. Late also impedes ability to to pass stone. Recommend placing epidural for 24-36 hours to provide pain management while allowing narcotics to leave the system and reduce exposure. Will plan for dleivery via after 24-36 hours. Discussed with patient and family and they are in agreement Order for epidural submitted. Objective - Vital Signs/Intake & Output Vital Signs: Vital Signs x48h Temp Pulse Resp BP Pulse Ox 08/25/21 11:30 122/78 08/25/21 08:30 97.7 F 84 19 129/72 99 Intake & Output: Intake & Output 08/22/21 08/23/21 08/24/21 08/25/21 23:59 23:59 23:59 23:59 Intake Total 2166.667 1943.75 Balance 2166.667 1943.75 - Lab Results Fish Bones: 08/25/21 09:26 08/25/21 09:26 Other Labs: Lab Results x24hrs 08/25/21 08/25/21 08/25/21 Range/Units 09:26 09:26 09:26 WBC 9.1 (4.8-10.8) x10^3/uL RBC 3.84 L (4.20-5.40) 10^6/uL Hgb 10.6 L (12.0-16.0) g/dL Hct 32.7 L (37.0-47.0) % MCV 85.2 (81.0-99.0) fL MCH 27.6 (27.0-31.0) pg MCHC 32.4 (32.0-36.0) g/dL RDW 13.2 (12.0-15.0) % Plt Count 143 (130-450) 10^3/uL MPV 11.2 H (7.9-10.8) fL Neut # (Auto) 7.4 H (1.5-6.6) 10^3/uL Lymph # (Auto) 1.0 L (1.5-3.5) 10^3/uL [place] # (Auto) 0.7 (0.0-1.0) 10^3/uL Eos # (Auto) 0.0 (0.0-0.7) 10^3/uL Baso # (Auto) 0.0 (0.0-0.1) 10^3/uL Absolute Nucleated RBC 0.00 x10^3/uL Nucleated RBC % 0.0 /100WBC Sodium 130 L (135-145) mmol/L Potassium 3.6 (3.5-5.0) mmol/L Chloride 100 L (101-111) mmol/L Carbon Dioxide 17 L (21-32) mmol/L Anion Gap 13.0 (6-13) BUN 6 (6-20) mg/dL Creatinine 0.8 (0.4-1.0) mg/dL Estimated GFR (MDRD) 109 (>89) Glucose 91 (70-100) mg/dL Calcium 8.8 (8.5-10.3) mg/dL Total Bilirubin 0.7 (0.2-1.0) mg/dL AST 15 (10-42) IU/L ALT < 10 L (10-60) IU/L Alkaline Phosphatase 79 (42-121) IU/L Total Protein 6.3 L (6.7-8.2) g/dL Albumin 3.1 L (3.2-5.5) g/dL Globulin 3.2 (2.1-4.2) g/dL Albumin/Globulin Ratio 1.0 (1.0-2.2) Blood Type O POSITIVE Antibody Screen NEGATIVE
[2021-08-25] MEDS ORDERED: ROPIVACAINE 0.2% 200 MG/100 ML BAG EP ONE (15:23)
--- NOTE | 2021-08-25 16:10 | ANESTHESIA ---
Pre-Anesthesia VS, & Labs - Diagnosis term labor, IUP - Procedure epidural placement Vital Signs: Temp Pulse Resp BP Pulse Ox 36.5 C 84 19 122/78 99 08/25/21 08:30 08/25/21 08:30 08/25/21 08:30 08/25/21 11:30 08/25/21 08:30 Height: 5 ft 10 in Weight (kg): 118.841 kg Body Mass Index: 37.5 BMI Classification: Obese - NPO Last Fluid Intake: t/o day Last Food Intake: lunch - Is Patient ?: Yes - Lab Results Current Lab Results: Laboratory Tests 08/25/21 09:26: Blood Type O POSITIVE, Antibody Screen NEGATIVE 08/25/21 09:26: Sodium 130 L, Potassium 3.6, Chloride 100 L, Carbon Dioxide 17 L , Anion Gap 13.0, BUN 6, Creatinine 0.8, Estimated GFR (MDRD) 109, Glucose 91, Calcium 8.8, Total Bilirubin 0.7, AST 15, ALT < 10 L, Alkaline Phosphatase 79, Total Protein 6.3 L, Albumin 3.1 L, Globulin 3.2, Albumin/Globulin Ratio 1.0 08/25/21 09:26: WBC 9.1, RBC 3.84 L, Hgb 10.6 L, Hct 32.7 L, MCV 85.2, MCH 27.6, MCHC 32.4, RDW 13.2, Plt Count 143, MPV 11.2 H, Neut # (Auto) 7.4 H, Lymph # (Auto) 1.0 L, Dickens # (Auto) 0.7, Eos # (Auto) 0.0, Baso # (Auto) 0.0, Absolute Nucleated RBC 0.00, Nucleated RBC % 0.0 08/23/21 23:22: WBC 10.0, RBC 4.12 L, Hgb 11.4 L, Hct 35.2 L, MCV 85.4, MCH 27.7, MCHC 32.4, RDW 13.2, Plt Count 153, MPV 11.4 H, Neut # (Auto) 7.4 H, Lymph # (Auto) 1.4 L, Dickens # (Auto) 1.0, Eos # (Auto) 0.0, Baso # (Auto) 0.0, Absolute Nucleated RBC 0.00, Nucleated RBC % 0.0 11/17/21 23:22: Sodium 135, Potassium 3.6, Chloride 104, Carbon Dioxide 19 L, Anion Gap 12.0, BUN 8, Creatinine 0.6, Estimated GFR (MDRD) 152, Glucose 86, Calcium 8.8, Total Bilirubin 0.4, AST 17, ALT 11, Alkaline Phosphatase 80, Total Protein 6.3 L, Albumin 3.1 L, Globulin 3.2, Albumin/Globulin Ratio 1.0 Lab results reviewed: Yes Fish Bones: 08/25/21 09:26 08/25/21 09:26 Home Medications and Allergies Active Medications Fentanyl (Fentanyl 100 Mcg/2 Ml Vial) 50 mcg IVP ONCE PRN PRN Reason: Severe Pain Stop: 08/26/21 03:19 Last Admin: 08/25/21 05:00 Dose: 50 mcg Documented by: Hydromorphone HCl (Hydromorphone 2 Mg/Ml Vial) 2 mg IVP Q2H PRN PRN Reason: PAIN Last Admin: 08/25/21 11:05 Dose: 2 mg Documented by: Lactated Ringer's (Lr) 1,000 mls @ 125 mls/hr IV .Q8H NOEMY Ondansetron HCl (Ondansetron 4 Mg/2 Ml Vial) 4 mg IVP Q6H PRN PRN Reason: Nausea / Vomiting Last Admin: 08/25/21 08:17 Dose: 4 mg Documented by: Oxycodone HCl (Oxycodone 5 Mg Tablet) 5 mg PO Q4HR PRN PRN Reason: PAIN Last Admin: 08/25/21 08:39 Dose: 5 mg Documented by: Oxycodone HCl (Oxycodone 5 Mg Tablet) 10 mg PO Q4HR PRN PRN Reason: PAIN Last Admin: 08/25/21 13:17 Dose: 10 mg Documented by: Multivit/Folic Acid/Iron ( Vitamin Tablet) 1 tab PO DAILYWM NOEMY Sertraline HCl (Sertraline 50 Mg Tablet) 100 mg PO DAILY NOEMY Tamsulosin HCl (Tamsulosin 0.4 Mg Capsule) 0.4 mg PO DAILY NOEMY Last Admin: 08/24/21 17:39 Dose: 0.4 mg Documented by: Pnv No.95/Ferrous Fum/Folic AC [ Caplet] 1 tab PO DAILY 01/06/21 Allergies/Adverse Reactions: Allergies Allergy/AdvReac Type Severity Reaction Status Date / Time No Known Drug Allergies Allergy Verified 04/09/21 17:40 Anes History & Medical History - Anesthetic History Anesthesia Complications: reports: No previous complications Family history of Anesthesia Complications: Denies Family history of Malignant Hyperthermia: Denies - Medical History Cardiovascular: reports: None Pulmonary: reports: None Neuro: reports: None Endocrine/Autoimmune: reports: None Smoking Status: Never smoker Exam General: Alert, Oriented x3, Cooperative Dental: WNL Mouth Openin Fingerbreadth Neck Mobility: Normal Mallampati classification: II Thyromental Distance: 4-6 cm Respiratory: No respiratory distress Cardiovascular: Regular rate Neurological: Normal speech Mental/Cognitive Status: Alert/Oriented X3, Normal for patient Cognitive Status: Within normal limits Plan Anesthesia Type: Epidural Consent for Procedure(s) Verified and Reviewed: Yes Code Status: Attempt Resuscitation ASA classification: 2-Mild systemic disease Is this case an emergency?: No
[2021-08-25] MEDS ORDERED: ePHEDrine 50 MG/ML VIAL IVP PRN (16:17)
[2021-08-25] MEDS ORDERED: ONDANSETRON 4 MG/2 ML VIAL IVP PRN (16:17)
[2021-08-25] MEDS ORDERED: METOCLOPRAMIDE 10 MG/2 ML VIAL IVP PRN (16:17)
[2021-08-25] MEDS ORDERED: NALOXONE 0.4 MG/ML VIAL IVP PRN (16:17)
[2021-08-25] MEDS ORDERED: NALBUPHINE 10 MG/ML AMP IVP PRN (16:17)
[2021-08-25] MEDS ORDERED: diphenhydrAMINE INJ 50 MG/ML VIAL IVP PRN (16:17)
[2021-08-25] MEDS: LACTATED RINGERS 1,000 ML IV SCH (19:33)
[2021-08-25] MEDS: TAMSULOSIN 0.4 MG CAPSULE PO SCH (19:34)
[2021-08-25] MEDS: SERTRALINE 50 MG TABLET PO SCH (20:40)
[2021-08-25] MEDS: PRENATAL VITAMIN TABLET PO SCH (20:40)
[2021-08-25] MEDS: ROPIVACAINE 0.2% 200 MG/100 ML BAG EP PRN (21:18)
[2021-08-26] MEDS: LACTATED RINGERS 1,000 ML IV SCH ×3 (03:27→19:44)
[2021-08-26] MEDS: ROPIVACAINE 0.2% 200 MG/100 ML BAG EP PRN (03:46)
[2021-08-26] MEDS ORDERED: SODIUM CHLORIDE 0.9% 10 ML VIAL IVP ONE (05:14)
[2021-08-26] MEDS ORDERED: ROPIVACAINE 0.2% PF 10 ML VIAL ONE (05:14)
--- NOTE | 2021-08-26 05:28 | CONSULTATION NOTE ---
Consultation Report: Called for breakthrough pain at R flank. Pt positioned on R side sensory level assessed at L1 with good motor at B LE. 10cc 0.2%Ropi slow bolus via epidural cath. Pt sensory level at T8 within 5 minutes and patient states complete resolution of pain. Epidural bolus time changed to 12cc [id number]. Will continue to follow and assess.
[2021-08-26] MEDS ORDERED: BUPIVACAINE 0.5% PF 10 ML VIAL ONE ×2 (10:18→13:49)
[2021-08-26] MEDS ORDERED: ROPIVACAINE 0.2% 200 MG/100 ML BAG EP ONE (10:18)
[2021-08-26] MEDS: SERTRALINE 50 MG TABLET PO SCH ×3 (11:54→19:45)
[2021-08-26] MEDS ORDERED: LIDOCAINE-MPF 2% 5 ML VIAL ONE ×4 (12:16→14:07)
[2021-08-26] MEDS ORDERED: AZITHROMYCIN INJ 1,000 MG in SODIUM CHLORIDE 0.9% 250 ML IV ONE (12:30)
[2021-08-26] MEDS ORDERED: TERBUTALINE 1 MG/ML VIAL SUBQ ONE ×2 (12:45)
[2021-08-26] MEDS ORDERED: fentaNYL 100 MCG/2 ML VIAL ONE ×2 (13:21→14:06)
[2021-08-26] MEDS ORDERED: METHYLERGONOVINE 0.2 MG/ML VIAL ONE (13:24)
[2021-08-26] MEDS ORDERED: KETAMINE 500 MG/10 ML VIAL ONE (13:24)
[2021-08-26] MEDS ORDERED: CARBOPROST TROMETHAMINE 250 MCG/ML AMP IM ONE (13:25)
[2021-08-26] MEDS ORDERED: OXYTOCIN 10 UNIT/ML VIAL ONE ×2 (13:48→14:17)
[2021-08-26] MEDS ORDERED: ceFAZolin 1 GM VIAL ONE (13:48)
[2021-08-26] MEDS ORDERED: ONDANSETRON 4 MG/2 ML VIAL ONE (13:49)
[2021-08-26] MEDS ORDERED: ACETAMINOPHEN 1,000 MG/100 ML 100 ML IV ONE (13:49)
[2021-08-26] MEDS ORDERED: KETOROLAC 30 MG/ML VIAL ONE (14:06)
--- NOTE | 2021-08-26 14:23 | PROVIDER PROGRESS NOTE ---
Subjective - Prog Note Date Prog Note Date: 08/26/21 Prog Note Time: 12:36 - Subjective Subjective: Patient had to have bolus overnight due to poor coverage. Underwent SVE at about 5 am and was 1/long/high, unchanged form prior exams over the last 24 hours. This am she needed to have her epidural re-bolused at about 10 am. She lost her mucus plug shortly sometime after that. She was checked at about 12:15 and was //. Decision was made to proceed with primary for breech presentation. Written informed consent was obtained. Epidural was deemed appropriate for . Objective - Vital Signs/Intake & Output Reviewed Vital Signs: Yes Vital Signs: 97.7 129/72 86 Intake & Output: Intake & Output 08/23/21 08/24/21 08/25/21 08/26/21 23:59 23:59 23:59 23:59 Intake Total 2166.667 1943.75 1987.5 Output Total 450 Balance 2166.667 1943.75 1537.5 - Objective General Appearance: positive: Mild distress Respiratory: positive: No respiratory distress Cardiovascular: positive: Other (RR) Abdomen: positive: Other (gravid, firm. Epidural in place) Skin: positive: Color nml Extremities: positive: Non-tender Neurologic/Psychiatric: positive: Oriented x3 Comments/Other: SVE - Lab Results Fish Bones: 08/25/21 09:26 08/25/21 09:26 Other Labs: Lab Results x24hrs 08/25/21 Range/Units 09:26 Blood Type O POSITIVE Antibody Screen NEGATIVE Crossmatch IS Only See Detail Assessment/Plan - Problem List (1) deliv NOS-unsp Impression: Patient proceeding to primary for breech presentation Pediatric team and RT available due to 24-48 hours of long acting narcotic exposure in the 24 days prior to Epidural had been placed about 21 hours prior to delivery in order to reduce na rcotics exposure to fetus prior to delivery Theraworx wipes were applied to abdomen. Azithromycin and cefazolin OCTOR Written informed consent obtained
[2021-08-26] MEDS ORDERED: LACTATED RINGERS 1,000 ML IV ONE (14:28)
[2021-08-26] MEDS ORDERED: AZITHROMYCIN INJ 1,000 MG in SODIUM CHLORIDE 0.9% 500 ML IV ONE (14:28)
--- NOTE | 2021-08-26 14:33 | OPERATIVE REPORT ---
Operative Report - General Admit Date: 08/25/21 Procedure Date: 08/26/21 Planned Procedure: Primary low transverse for breech presentation Pre-Op Diagnosis: IUP at 37+3 wga, breech presentation, labor Procedure Performed: Primary low transverse for breech presentation Post Op Diagnosis: Same and delivery of term gestation - Procedure Note Primary Surgeon: Smiley Barrera MD Secondary Surgeon: ROSEMARIE Machuca CNM Anesthesia Provider: Haley Brito CRNA Anesthesia Technique: Epidural Pathology: Placenta to pathology IV Fluids (mL): 1,300 Estimated Blood Loss (mL): 1,100 Urine Output (mL): 1,330 (includes all urine accumulated since 6 am) Indications: 20 yo at 37+3 wga admitted with rightsided flank pain attributed to nephrolithiasis now in active labor with fetus in breech presentation. Patient was admitted on 08/23/21 with severe right flank pain. Pain had been managed with dilaudid, oxycodone until 08/25/21 when epidural was placed with plan to deliver via after 24 hours, to allow for washout of narcotics exposure. Plan was for 16:00 on 08/26/21. On the morning of 08/26/21, patient began to experience more pain, prompting bolus of epidural x2. Cervical exam was 1/long/high at 5 am. She passed a mucus plug at approximately 11:30 am. She was checked at about 12:30 and was found to be 9/C/BBOW. Decision was made to proceed urgently with primary for breech presentation. Findings: Ascites in abdomen. Meconium stained amniotic fluid. Female infant in breech presentation, appearance consistent with LGA status. Normal appearing uterus, tubes, and ovaries. weight and Apgars are pending. Complications: None - Other Other Information/Narrative: Risks benefits and alternatives of the procedure were discussed. Written informed consent was obtained. Patient was taken to the operating room where spinal anesthesia was placed and found to be adequate. She was prepped and draped in the usual sterile fashion in the dorsal supine position with a leftward tilt. Argueta catheter was in place. SCDs were in place and activated. Cefazolin 2 g IV was and azithromycin 1g po were given as preoperative antibiotics. Preoperative timeout was performed. A Pfannenstiel incision was made in the skin with a scalpel and carried through the underlying layer of fascia in a combination of sharp and blunt dissection. The fascia was incised in the midline, and the incision was extended laterally with the Martinez scissors. The superior aspect of the fascial incision was grasped with the Isidro clamps, elevated, and the underlying rectus muscles were dissected off bluntly and sharply using the Martinez scissors. Attention was then turned to the inferior aspect of the incision which in a similar fashion was grasped, tented up with Isidro clamps, and the underlying rectus muscles dissected off bluntly and sharply using Martinez scissors. The rectus muscles were then in the midline. The peritoneum was identified, tented up, and entered bluntly. The peritoneal incision was extended superiorly and inferiorly with good visualization of the bladder. The bladder that blade was then inserted. A bladder flap was not created. The lower uterine segment of the uterus was identified, and incised in a transverse fashion with a scalpel. The uterus was entered bluntly. The uterine incision was extended in a craniocaudal fashion by manual stretch. The bladder blade was removed. The infant was delivered from from breech position using the usual maneuvers. Baby was wrapped in a warm sterile towel. Delayed cord clamping was not performed. After cessation of pulsations, the cord was clamped x2 and cut after was shown to parents. The was handed off to the waiting pediatricians. The placenta was removed with manual expression. The uterus was exteriorized and cleared of all clots and debris via manual swipe using Ray-Iona x2. The uterine incision was then repaired in a running locked fashion using 0 Vicryl suture. The incision was reinforced with a running imbricating layer again using 0-Vicryl suture. Excellent hemostasis was obtained. The uterus was returned to the abdomen. The gutters were cleared of all clots and debris. The pelvis was irrigated with warm sloppy wet lap sponges x2. The uterine defect was well visualized in normal anatomic position it was noted again to be hemostatic. The peritoneum was then reapproximated with 2-0 Vicryl in a running fashion. The rectus muscles were then reapproximated using interrupted [id number] sutures using 2-0 Chromic. Good hemostasis was noted. The fascia was then closed using 0 Vicryl in a running fashion starting from the left lateral edge to the midline. A second suture was used to close the fascia in a running fashion starting from the right lateral edge and meeting in the midline, agian using 0-Vicryl. The subcutaneous tissue was then irrigated and closed using 2-0 chromic in a running subcutaneous suture. Skin was closed in a running subcuticular suture using 4-0 Monocryl. Steri-Strips were applied to reinforce the incision and dressing was applied. Procedure was well-tolerated and without complication. Sponge lap and needle counts were correct x2. Patient was taken to recovery room in stable condition. ROSEMARIE Machuca CNM, assisted with retraction, delivery of the infant, and suturing.
[2021-08-26] MEDS ORDERED: OXYTOCIN/SODIUM CHLORIDE 500 ML IV PRN (14:49)
[2021-08-26] MEDS ORDERED: ONDANSETRON ODT 4 MG TABLET TL PRN (14:49)
[2021-08-26] MEDS ORDERED: SODIUM CHLORIDE FLUSH 0.9% 10 ML SYRINGE IVP PRN (14:49)
[2021-08-26] MEDS ORDERED: oxyCODONE 5 MG TABLET PO PRN (14:49)
[2021-08-26] MEDS ORDERED: METOCLOPRAMIDE 10 MG/2 ML VIAL IVP PRN (14:58)
[2021-08-26] MEDS ORDERED: MORPHINE 2 MG/ML CARPUJECT IVP PRN (14:58)
[2021-08-26] MEDS ORDERED: ePHEDrine 50 MG/ML VIAL IVP PRN (14:58)
[2021-08-26] MEDS ORDERED: ATROPINE ABBOJECT 1 MG/10 ML SYRINGE IVP PRN (14:58)
[2021-08-26] MEDS ORDERED: ONDANSETRON 4 MG/2 ML VIAL IVP PRN (14:58)
[2021-08-26] MEDS ORDERED: fentaNYL 100 MCG/2 ML VIAL IVP PRN (14:58)
[2021-08-26] MEDS ORDERED: HYDROmorphone 0.5 MG/0.5 ML SYRINGE IVP PRN (14:58)
[2021-08-26] MEDS ORDERED: NALOXONE 0.4 MG/ML VIAL IVP PRN (14:58)
[2021-08-26] MEDS ORDERED: LACTATED RINGERS 1,000 ML IV SCH (15:00)
--- NOTE | 2021-08-26 16:29 | ANESTHESIA POST OP EVALUATION ---
Anesthesia Post Eval - Post Anesthesia Eval Vitals: Last Vital Signs Temp 36.6 C 08/26/21 16:15 Pulse 109 H 08/26/21 16:15 Resp 20 08/26/21 16:15 BP 138/78 H 08/26/21 16:15 Pulse Ox 96 08/26/21 16:15 CV Function Including HR & BP: Stable Pain Control: Satisfactory Nausea & Vomiting: Negative Mental Status: Baseline Respiratory Status: Airway Patent Hydration Status: Satisfactory Anesthesia Complications: None
[2021-08-26] MEDS ORDERED: SODIUM CHLORIDE FLUSH 0.9% 10 ML SYRINGE IVP SCH (17:00)
[2021-08-26] MEDS ORDERED: oxyCODONE 5 MG TABLET PO ONE (17:55)
[2021-08-26 18:29] LABS: BILIRUBIN,URINE NEGATIVE (NEGATIVE); GLUCOSE, URINE (UA) NEGATIVE (NEGATIVE); KETONES,URINE (UA) NEGATIVE (NEGATIVE); LEUKOCYTE ESTERASE, URINE TRACE (NEGATIVE); NITRITE,URINE NEGATIVE (NEGATIVE); OCCULT BLOOD,URINE MODERATE (NEGATIVE); PROTEIN,URINE NEGATIVE (NEGATIVE); UROBILINOGEN,URINE 0.2 (NORMAL) E.U./dL (NORMAL)
[2021-08-26 18:37] LABS: CLARITY,URINE CLEAR (CLEAR)
[2021-08-26 18:45] LABS: BACTERIA,URINE Few /HPF (None Seen); SQUAMOUS EPITHELIAL CELL,UR MANY Squamous (<= Few)
[2021-08-26] MEDS: KETOROLAC 30 MG/ML VIAL IVP SCH (19:42)
[2021-08-26] MEDS: SIMETHICONE CHEW 80 MG TABLET PO PRN (19:42)
[2021-08-26] MEDS: PRENATAL VITAMIN TABLET PO SCH (19:42)
[2021-08-26] MEDS: DOCUSATE SODIUM 100 MG CAPSULE PO SCH (21:25)
[2021-08-26] MEDS: oxyCODONE 5 MG TABLET PO PRN (22:21)
[2021-08-27] MEDS: KETOROLAC 30 MG/ML VIAL IVP SCH ×3 (03:04→15:31)
[2021-08-27] MEDS: oxyCODONE 5 MG TABLET PO PRN ×4 (03:04→18:22)
[2021-08-27 07:14] LABS: BASOPHILS # (AUTO) 0.1 10^3/uL (0.0-0.1); BASOPHILS % (AUTO) 0.4 %; EOSINOPHILS # (AUTO) 0.1 10^3/uL (0.0-0.7); EOSINOPHILS % (AUTO) 0.4 %; HCT - HEMATOCRIT 25.8 % (37.0-47.0); HGB - HEMOGLOBIN 8.4 g/dL (12.0-16.0); LYMPHOCYTES # (AUTO) 1.3 10^3/uL (1.5-3.5); LYMPHOCYTES % (AUTO) 11.5 %; MEAN CORPUSCULAR HEMOGLOBIN 27.9 pg (27.0-31.0); MEAN CORPUSCULAR HGB CONC 32.6 g/dL (32.0-36.0); MEAN CORPUSCULAR VOLUME 85.7 fL (81.0-99.0); MONOCYTES % (AUTO) 8.7 %; NEUTROPHILS % (AUTO) 78.1 %; PLT - PLATELET COUNT 142 10^3/uL (130-450); RED BLOOD COUNT 3.01 10^6/uL (4.20-5.40); RED CELL DISTRIBUTION WIDTH 13.3 % (12.0-15.0); WHITE BLOOD COUNT 11.6 x10^3/uL (4.8-10.8)
[2021-08-27] MEDS: DOCUSATE SODIUM 100 MG CAPSULE PO SCH ×2 (09:12→21:06)
[2021-08-27] MEDS: ACETAMINOPHEN 500 MG TABLET PO SCH ×2 (09:14→18:21)
--- NOTE | 2021-08-27 12:15 | PROVIDER PROGRESS NOTE ---
Subjective - Prog Note Date Prog Note Date: 08/27/21 Prog Note Time: 12:13 - Subjective Subjective: Patient is doing well. Pain markedly improved since prior to delivery. Patient is up and ambulating, tolerating po, and voiding. Pain is well managed with pain medications. Baby improving with breathing issues overnight. Objective - Vital Signs/Intake & Output Reviewed Vital Signs: Yes Vital Signs: Vital Signs x48h Temp Pulse Resp BP Pulse Ox 08/27/21 09:43 99.0 F 92 17 126/77 99 Intake & Output: Intake & Output 08/24/21 08/25/21 08/26/21 08/27/21 23:59 23:59 23:59 23:59 Intake Total 2166.667 1943.75 4536.5 1375 Output Total 2525 400 Balance 2166.667 1943.75 2011.5 975 - Objective General Appearance: positive: No acute distress Neck: positive: Nml inspection Respiratory: positive: Chest non-tender, No respiratory distress Cardiovascular: positive: Regular rate & rhythm Peripheral Pulses: 2+ Dorsalis pedis (R), 2+ Dorsalis pedis (L) Abdomen: positive: Other (FF below umbi. Soft and NT/ND. Dressing with mild ss staining, otherwise CDI) Skin: positive: Color nml Extremities: positive: Non-tender Neurologic/Psychiatric: positive: Oriented x3 - Lab Results Fish Bones: 08/27/21 06:46 08/25/21 09:26 Other Labs: Lab Results x24hrs 08/27/21 08/26/21 Range/Units 06:46 17:20 WBC 11.6 H (4.8-10.8) x10^3/uL RBC 3.01 L (4.20-5.40) 10^6/uL Hgb 8.4 L (12.0-16.0) g/dL Hct 25.8 L (37.0-47.0) % MCV 85.7 (81.0-99.0) fL MCH 27.9 (27.0-31.0) pg MCHC 32.6 (32.0-36.0) g/dL RDW 13.3 (12.0-15.0) % Plt Count 142 (130-450) 10^3/uL MPV 12.0 H (7.9-10.8) fL Neut # (Auto) 9.0 H (1.5-6.6) 10^3/uL Lymph # (Auto) 1.3 L (1.5-3.5) 10^3/uL [place] # (Auto) 1.0 (0.0-1.0) 10^3/uL Eos # (Auto) 0.1 (0.0-0.7) 10^3/uL Baso # (Auto) 0.1 (0.0-0.1) 10^3/uL Absolute Nucleated RBC 0.00 x10^3/uL Nucleated RBC % 0.0 /100WBC Urine Color YELLOW Urine Clarity CLEAR (CLEAR) Urine pH 6.0 (5.0-7.5) PH Ur Specific Arley 1.010 (1.002-1.030) Urine Protein NEGATIVE (NEGATIVE) mg/dL Urine Glucose (UA) NEGATIVE (NEGATIVE) mg/dL Urine Ketones NEGATIVE (NEGATIVE) mg/dL Urine Occult Blood MODERATE H (NEGATIVE) Urine Nitrite NEGATIVE (NEGATIVE) Urine Bilirubin NEGATIVE (NEGATIVE) Urine Urobilinogen 0.2 (NORMAL) (NORMAL) E.U./dL Ur Leukocyte Esterase TRACE H (NEGATIVE) Urine RBC 6-10 H (0-5) /HPF Urine WBC 11-25 H (0-5) /HPF Ur Squamous Epith Cells MANY Squamous H (<= Few) Urine Bacteria Few (None Seen) /HPF Ur Microscopic Review INDICATED Assessment/Plan - Problem List (1) deliv NOS-unsp Impression: POD#1 s/p LTCS for breech Doing well Routine pp care Giving IV iron for anemia in setting of acute blood loss No s/s of nephrolithiasis; dc tamsulosin RH positive Anticipate maternal discharge tomorrow
[2021-08-27] MEDS ORDERED: FERRIC GLUCONATE 125 MG in SODIUM CHLORIDE 0.9% 100ML 100 ML IV ONE (13:00)
[2021-08-27] MEDS: SERTRALINE 50 MG TABLET PO SCH (21:04)
[2021-08-27] MEDS: IBUPROFEN 600 MG TABLET PO SCH ×2 (21:05→21:15)
[2021-08-27] MEDS: SIMETHICONE CHEW 80 MG TABLET PO PRN (21:17)
[2021-08-28] MEDS: ACETAMINOPHEN 500 MG TABLET PO SCH ×3 (02:13→18:30)
[2021-08-28] MEDS: IBUPROFEN 600 MG TABLET PO SCH ×4 (02:58→21:29)
[2021-08-28] MEDS: oxyCODONE 5 MG TABLET PO PRN ×2 (03:30→17:25)
[2021-08-28] MEDS: DOCUSATE SODIUM 100 MG CAPSULE PO SCH ×2 (08:48→21:28)
--- NOTE | 2021-08-28 09:18 | HISTORY & PHYSICAL EXAMINATION ---
History and Physical - History and Physical Subjective Patient reports she is doing well. Lochia appropriate. Denies heavy bleeding. Ambulating. Pelvic and abdominal pain well-controlled. Tolerating oral intake. Diet: Regular. Voiding without difficulty. Passing flatus. Denies BM. Patient is bonding with baby in room Breast feeding, but does not feel supply is adequate enough. Denies feeling lightheaded, dizzy or excessively fatigued. Objective Temp Pulse Resp BP Pulse Ox 97.7 F 93 17 116/61 97 08/28/21 08:00 08/28/21 08:00 08/28/21 08:00 08/28/21 08:00 08/28/21 08:00 General: Alert, oriented, no apparent distress. Cardiovascular: Regular rate. Regular rhythm. No murmur. Lungs: Clear to auscultation. Good air movement. No crackles or wheezes Abdomen: Uterus firm. Below umbilicus. Normal active bowel sounds. No guarding or rebound. Incision: Clean, dry, and intact. Extremities: Normal pedal pulses. No edema. No cords. Assessment and Plan day 2. -Routine care. Encouraged increased ambulation. Baby doing better, but -Anticipate discharge tomorrow. Nephrolithiais Pain resolved. Likely may have been labor symptoms.
[2021-08-28] MEDS: SIMETHICONE CHEW 80 MG TABLET PO PRN ×2 (19:03→21:29)
[2021-08-28] MEDS: SERTRALINE 50 MG TABLET PO SCH (21:27)
[2021-08-28] MEDS: PRENATAL VITAMIN TABLET PO SCH (21:27)
[2021-08-29] MEDS: oxyCODONE 5 MG TABLET PO PRN (01:24)
[2021-08-29] MEDS: ACETAMINOPHEN 500 MG TABLET PO SCH ×2 (02:43→11:03)
[2021-08-29] MEDS: IBUPROFEN 600 MG TABLET PO SCH ×2 (03:29→09:01)
[2021-08-29 08:36] VITALS: BP 112/75
[2021-08-29] MEDS: DOCUSATE SODIUM 100 MG CAPSULE PO SCH (09:01)
[2021-08-29] MEDS: SIMETHICONE CHEW 80 MG TABLET PO PRN (09:01)
--- NOTE | 2021-08-29 12:02 | Discharge Plan ---
Discharge Plan Problem Reviewed?: Yes Disposition: Home, Self Care Condition: Good Prescriptions: Acetaminophen [Acetaminophen Extra Strength] 1,000 mg PO Q8H PRN #60 tablet PRN Reason: Pain Docusate Sodium 100Mg Capsule [Colace 100Mg Capsule] 100 - 200 mg PO BID PRN #60 cap PRN Reason: Constipation Ibuprofen [Motrin] 600 mg PO Q6H PRN #60 tab PRN Reason: Pain oxyCODONE [Roxicodone] 2.5 - 5 mg PO Q4H PRN #24 tablet PRN Reason: Severe Pain Diet: Regular Shower Restrictions: Yes (no tub baths ot hot tubs) Driving Restrictions: Yes (no driving on narcotics) Additional Instructions or Follow Up instructions: Nothing in the vagina for 6 weeks: No intercourse, tampons, douching Call for: -Fever greater than 100.5 -Pain that does not improve with pain medication -Heavy bleeding in which you are soaking a pad an hour for 2 hours in a row -Incision becomes hot, hard, red, starts to open, or leaks foul smelling fluid -Pain or swelling in one leg and not the other +/- shortness of breath or chest pain No lifting more than 10# for 4 weeks [address] while on narcotics Ok to shower. Let water run over the incision. Do not soap, scrub, or apply lotion. Pat dry with a clean towel or satish a chair mechanic. The surgical stickers will start to peel off and you can remove them when they do. Otherwise, the provider will remove them at your one week follow-up appointment. OK to use an unscented sanitary napkin or clean washcloth to keep the incision dry if the belly folds over the incision. Ibuprofen 600 mg by mouth every 6 hours as needed for pain Acetaminophen 500-1000 mg by mouth every 8 hours as needed for pain Docusate 100-200 mg by mouth twice a day as needed for constipation Oxycodone 2.5-5 mg by mouth every 4 hours as needed for pain No Smoking: If you smoke, Please STOP! Call for help. Follow-up with: Gallito Rowe MD [Provider Admit Priv/Credential] -
--- NOTE | 2021-09-20 17:53 | DISCHARGE SUMMARY ---
Discharge Summary Admit Date: 08/23/21 Discharge Date: 08/29/21 Discharging Provider: Jae Condition at Discharge: Good Discharge Disposition: 01 Home, Self Care - DIAGNOSES Admission Diagnoses: Back and flank pain Possible nephrolithiasis with IUP at 37+0 wga Breech presentation Suspected macrosomia Discharge Diagnoses with Status of Each Condition: Same and delivery of term gestation Gestational hypertension Acute blood loss anemia - HPI History of Present Illness: Patient is a 20yo admitted at 37 0/7 weeks with right flank and right side of abdomen pain. Patient reported some"cramping" but the pain that is 9/10 is on her right flank and back and right side of abdomen. Patient denied fever, nausea or vomiting. Patient denied history of kidney stones or kidney infections with this . Pain started this afternoon of presentation. Patient was able to eat normally earlier on day of presentation.T=99.1 Ultrasound earlier on day of presentatin revealed breech presentation. Large for Gestational age according to patient's report. NST: 130 with moderate variability. Accelerations are present. Uterine irritability is present. Patient is feeling a small amount of cramping, not "contractions" only feels it on right side of abdomen. Reactive NST. CBC and CMP are within normal limits. WBC is normal. No sign of infections. Discussed with patient and that since her pain has completely resolved she may have been experiencing a kidney stone. There were oxalate crystals in her urine. Patient was experiencing 9/10 pain. Pain then normalized for a brief period of time and patient was admitted for pain management of a presumed kidney stone. - CONSULTS | PROCEDURES Procedures: Epidural placement for breech presentation - HOSPITAL COURSE Hospital Course: Patient was admitted at 37+0 wga for management of presumed kindey stone. Blood pressures were mildly elevated on two occasions, more than 4 hours apart, meeting criteria for GHTN. She was admitted for IV hydration and pain management with IV dilaudid. Pain did not improve with the the aforementioned interventions. When she was at 37+2 wga, she had been started on oral oxycodone with an attempt to get longer lasting control. And had been started on tamsulosin 0.4 mg daily. It was noted that patient was in breech presentation. Given late gestational age, there was concern about exposure to longer acting narcotics in a scenario in which patient might need to be urgently delivered, eg with spontaneous rupture of membranes. The decision was made to place and epidural for pain management and plan for delivery via at 24 hours, so that narcotic exposure could wash out. Plan was discussed with pediatrics and with anesthesia. OR team was secured for at 24 hours post epidural placement. 08/26/21: Patient had to have bolus overnight due to poor coverage. Underwent SVE at about 5 am and was 1/long/high, unchanged form prior exams over the last 24 hours. Needed to have her epidural re-bolused at about 10 am. She lost her mucus plug shortly sometime after that. She was checked at about 12:15 and was 9/C/BBOW. Decision was made to proceed with primary for breech presentation. Written informed consent was obtained. Epidural was deemed appr opriate for . was performed on 08/26/21 at 37+3 wga. Female infant delivered from breech presentation with Apgars 8/9, weight 3930 g. Procedure was well tolerated and without complication. course was uncomplicated. Flank pain resolved with delivery. Patient received IV iron for acute blood loss anemia. By PPD#2, she was meeting goals for discharge ADMITTING PROVIDER: LUCIANO LABOR PROVIDER: BLANCA DELIVERING PROVIDER: DELILAH WEIGHT 3930g APGARS 8/9 Female - ALLERGIES Allergies/Adverse Reactions: Allergies Allergy/AdvReac Type Severity Reaction Status Date / Time No Known Drug Allergies Allergy Verified 08/30/21 03:28 - MEDICATIONS Home Medications: Ambulatory Orders Medication Instructions Recorded Confirmed Pnv No.95/Ferrous Fum/Folic AC 1 tab PO DAILY 01/06/21 08/30/21 [ Caplet] Acetaminophen/Cod 300/30 [Tylenol 1 - 2 each PO Q6HR PRN #14 tablet 06/20/21 08/30/21 #3] Acetaminophen [Acetaminophen Extra 1,000 mg PO Q8H PRN #60 tablet 08/29/21 08/30/21 Strength] Docusate Sodium 100Mg Capsule 100 - 200 mg PO BID PRN #60 cap 08/29/21 08/30/21 [Colace 100Mg Capsule] Ibuprofen [Motrin] 600 mg PO Q6H PRN #60 tab 08/29/21 08/30/21 oxyCODONE [Roxicodone] 2.5 - 5 mg PO Q4H PRN #24 tablet 08/29/21 08/30/21 - LABS Result Diagrams: 08/27/21 06:46 08/25/21 09:26 - FOLLOW UP Follow Up: 1 week - TIME SPENT Time Spent in Discharge (Minutes): 30
== END 2021-08-29 13:55 | disposition home or self-care (01) | DRG 787 ==
LOC: WFO 21:59 → FBP 22:01 → WFO 08-24 11:01 → FBP 08-24 11:02 → OBSVTOIN 08-25 12:51 → FBP 08-25 16:20
PROVIDERS: ADMIT Obstetrics & Gynecology; ATTEND Obstetrics & Gynecology
PROC: 10D00Z1 Extraction of Products of Conception, Low, Open Approach (ICD-10-PCS; principal; 2021-08-26 11:45)
DX: O99.892 Other specified diseases and conditions complicating childbirth (principal); O72.1 Other immediate postpartum hemorrhage; D62 Acute posthemorrhagic anemia; N20.0 Calculus of kidney; R31.9 Hematuria, unspecified; O32.1XX0 Maternal care for breech presentation, not applicable or unspecified; O13.4 Gestational [pregnancy-induced] hypertension without significant proteinuria, complicating childbirth; Z3A.37 37 weeks gestation of pregnancy; Z37.0 Single live birth; O77.0 Labor and delivery complicated by meconium in amniotic fluid; P08.1 Other heavy for gestational age newborn; O99.214 Obesity complicating childbirth
CPT/HCPCS: 36415; 76770; 80053; 81001; 85025; 86850; 86900; 86901; 86920; 88307; 96361; 96365; 96375; 96376; 99215; A9270; G0378; J0131; J1170; J2210; J2916; J7120; 81003; 87086; 99213

== ENCOUNTER 2021-08-30 03:14 | Emergency (ER) | payer OTHER, MEDICAID ==
--- NOTE | 2021-08-30 03:17 | ED Physician Documentation ---
PD HPI FEMALE - Stated complaint Stated Complaint: C SECTION COMPLICATIONS - History obtained from History obtained from: Patient - History of Present Illness Timing - onset: How many days ago (1-2) Timing - duration: Days (1-2) Timing - details: Gradual onset, Still present Associated symptoms: Other (no dyspnea. She has had some pain in right foot and ankle and feeling it into right calf with swelling of foot/ankle. She is 4 days post . States her wound is doing okay.). No: Fever, Chest/shoulder pain Contributing factors: No: (she is 4 days post . 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 denies: Nausea, Vomiting, Diarrhea Skin: denies: Rash, Lesions Musculoskeletal: reports: Extremity swelling (right ankle and lower leg for 2 days increasingly.) Neurologic: denies: Focal weakness, Numbness PD PAST MEDICAL HISTORY - Past Medical History Cardiovascular: None Respiratory: None Neuro: None Endocrine/Autoimmune: None Psych: Depression - Past Surgical History Past Surgical History: No - Present Medications Home Medications: Ambulatory Orders Medication Instructions Recorded Confirmed Pnv No.95/Ferrous Fum/Folic AC 1 tab PO DAILY 01/06/21 08/30/21 [ Caplet] Acetaminophen/Cod 300/30 [Tylenol 1 - 2 each PO Q6HR PRN #14 tablet 06/20/21 08/30/21 #3] Acetaminophen [Acetaminophen Extra 1,000 mg PO Q8H PRN #60 tablet 08/29/21 08/30/21 Strength] Docusate Sodium 100Mg Capsule 100 - 200 mg PO BID PRN #60 cap 08/29/21 08/30/21 [Colace 100Mg Capsule] Ibuprofen [Motrin] 600 mg PO Q6H PRN #60 tab 08/29/21 08/30/21 oxyCODONE [Roxicodone] 2.5 - 5 mg PO Q4H PRN #24 tablet 08/29/21 08/30/21 - Allergies Allergies/Adverse Reactions: Allergies Allergy/AdvReac Type Severity Reaction Status Date / Time No Known Drug Allergies Allergy Verified 08/30/21 03:28 - Social History Does the pt smoke?: No Smoking Status: Never smoker Does the pt drink ETOH?: No Does the pt have substance abuse?: No - Immunizations Immunizations are current?: Yes PD ED PE NORMAL - Vitals Vital signs reviewed: Yes - General General: Alert and 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, No acute distress, Well developed/nourished - Cardiac Cardiac: RRR, No murmur - Respiratory Respiratory: Clear bilaterally - Abdomen Abdomen: Other ( wound with dressing. No redness nor noted drainage at it. ) - Derm Derm: Normal color, Warm and dry, No rash - Extremities Extremities: Other (has some tenderness in right calf. Not tender popliteal nor thigh. Mild swelling around ankle and distal lower leg. Good color and cap refill in toes. ) - Neuro Neuro: Alert and 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, No motor deficit, No sensory deficit, Normal speech Results - Vitals Vitals: Vital Signs - 24 hr 08/30/21 08/30/21 08/30/21 03:24 03:28 04:49 Temperature 36.8 C 36.8 C 36.7 C Heart Rate 105 H 105 H 89 Respiratory 16 16 16 Rate Blood Pressure 150/74 H 150/74 H 138/71 H O2 Saturation 99 99 99 Oxygen O2 Source Room air - Rads (name of study) duplex right leg Radiology: See rad report, Other (U/S Tech states no blood clots founds. ) PD MEDICAL DECISION MAKING - ED course Complexity details: reviewed results, considered differential, d/w patient Departure - Departure Disposition: 01 Home, Self Care Clinical Impression: Swelling of lower leg, Status post delivery Condition: Stable Instructions: ED Edema Legs Bilateral Comments: Regular activity and walking will help promote circulation through the leg and decrease the swelling. Elevate your legs when rested. Your ultrasound is good without any signs of blood clots. There can still be impairment of the return blood flow and lymphatics related to the and recent surgery. That should improve with healing time. Tylenol or ibuprofen is good and safe in breast-feeding and can be used for pain. Again walking/activity is good and elevating your legs when rested. 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 If there is persistent pain or increased swelling, the ultrasound can always be repeated in a week or 2 to ensure no subsequent development of clots. Discharge Date/Time: 08/30/21 04:56
[2021-08-30] MEDS ORDERED: IBUPROFEN 600 MG TABLET PO STA (04:42)
[2021-08-30 04:56] VITALS: BP 138/71
--- NOTE | 2021-08-30 11:59 | Ultrasound Report ---
PROCEDURE: Duplex Ext Veins Right INDICATIONS: post c-sec right leg/calf pain and swelling TECHNIQUE: Real-time imaging, as well as color and pulse Doppler interrogation, were performed of the lower extr emity deep veins from the inguinal ligament to the popliteal fossa. COMPARISON: None. FINDINGS: The deep veins are normally compressible, and free of intraluminal thrombus. Color and pu lse Doppler demonstrate normal phasic intraluminal flow. There is normal augmentation response to di stal compression maneuver. IMPRESSION: No deep venous thrombosis. The above findings are concordant with preliminary report. Reviewed by: Marina Aguayo MD on 08/30/2021 11:57 AM PST Approved by: Marina Aguayo MD on 08/30/2021 11:57 AM PST Station ID: [id number]
== END 2021-08-30 04:56 | disposition home or self-care (01) ==
LOC: ED 03:14
DX: R22.41 Localized swelling, mass and lump, right lower limb (principal); Z98.890 Other specified postprocedural states
CPT/HCPCS: 93971; 99282; 99284; A9270

== ENCOUNTER 2021-08-30 15:52 | Outpatient (CLI) | payer OTHER, MEDICAID | END 2021-08-30 17:00 | disposition home or self-care (01) | LOC: FBP 15:52 → WFO 15:52 | PROVIDERS: ATTEND Pediatrics | DX: Z39.1 Encounter for care and examination of lactating mother (principal) ==

== ENCOUNTER 2021-09-27 16:57 | Emergency (ER) | payer OTHER, MEDICAID ==
[2021-09-27 17:20] LABS: BASOPHILS # (AUTO) 0.1 10^3/uL (0.0-0.1); BASOPHILS % (AUTO) 0.7 %; EOSINOPHILS # (AUTO) 0.1 10^3/uL (0.0-0.7); EOSINOPHILS % (AUTO) 1.9 %; HCT - HEMATOCRIT 36.2 % (37.0-47.0); HGB - HEMOGLOBIN 11.3 g/dL (12.0-16.0); LYMPHOCYTES # (AUTO) 1.7 10^3/uL (1.5-3.5); LYMPHOCYTES % (AUTO) 23.8 %; MEAN CORPUSCULAR HEMOGLOBIN 26.7 pg (27.0-31.0); MEAN CORPUSCULAR HGB CONC 31.2 g/dL (32.0-36.0); MEAN CORPUSCULAR VOLUME 85.6 fL (81.0-99.0); MEAN PLATELET VOLUME 9.7 fL (7.9-10.8); MONOCYTES # (AUTO) 0.4 10^3/uL (0.0-1.0); NEUTROPHILS # (AUTO) 4.9 10^3/uL (1.5-6.6); NEUTROPHILS % (AUTO) 67.2 %; PLT - PLATELET COUNT 265 10^3/uL (130-450); RED BLOOD COUNT 4.23 10^6/uL (4.20-5.40); RED CELL DISTRIBUTION WIDTH 13.3 % (12.0-15.0); WHITE BLOOD COUNT 7.3 x10^3/uL (4.8-10.8)
--- NOTE | 2021-09-27 17:30 | ED Physician Documentation ---
PD HPI ABD PAIN - Stated complaint Stated Complaint: HEAVY BLEEDING FEMALE - Chief complaint Chief Complaint: Abd Pain - History obtained from History obtained from: Patient - Additional information Additional information: G1, P1 about a month out from for breech presentation. Over the last day she has had bleeding slightly heavier than menses,, having gone through 5 pads today. Mild cramping. No dizziness or weakness. 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 Medications Home Medications: Ambulatory Orders Medication Instructions Recorded Confirmed Pnv No.95/Ferrous Fum/Folic AC 1 tab PO DAILY 01/06/21 08/30/21 [ Caplet] Acetaminophen/Cod 300/30 [Tylenol 1 - 2 each PO Q6HR PRN #14 tablet 06/20/21 08/30/21 #3] Acetaminophen [Acetaminophen Extra 1,000 mg PO Q8H PRN #60 tablet 08/29/21 08/30/21 Strength] Docusate Sodium 100Mg Capsule 100 - 200 mg PO BID PRN #60 cap 08/29/21 08/30/21 [Colace 100Mg Capsule] Ibuprofen [Motrin] 600 mg PO Q6H PRN #60 tab 08/29/21 08/30/21 oxyCODONE [Roxicodone] 2.5 - 5 mg PO Q4H PRN #24 tablet 08/29/21 08/30/21 Ibuprofen [Motrin] 800 mg PO Q8H PRN #14 tablet 09/27/21 - Allergies Allergies/Adverse Reactions: Allergies Allergy/AdvReac Type Severity Reaction Status Date / Time No Known Drug Allergies Allergy Verified 09/27/21 17:19 - Social History Does the pt smoke?: No Smoking Status: Never smoker Does the pt drink ETOH?: No Does the pt have substance abuse?: No - Immunizations Immunizations are current?: Yes PD ED PE NORMAL - Vitals Vital signs reviewed: Yes - General General: Alert and 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, No acute distress - Cardiac Cardiac: RRR, No murmur - Respiratory Respiratory: No respiratory distress, Clear bilaterally - Abdomen Abdomen: Normal bowel sounds, Soft, Non tender - Back Back: No CVA TTP, No spinal TTP - Derm Derm: Normal color, Warm and dry - Extremities Extremities: No edema, No calf tenderness / cord - Neuro Neuro: Alert and 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, Normal speech Results - Vitals Vitals: Vital Signs - 24 hr 09/27/21 09/27/21 17:20 17:40 Temperature 37 C Heart Rate 101 H 85 Respiratory 18 16 Rate Blood Pressure 113/79 112/70 O2 Saturation 98 99 Oxygen O2 Source Room air - Labs Labs: Laboratory Tests 09/27/21 09/27/21 09/27/21 17:13 17:13 17:13 WBC 7.3 RBC 4.23 Hgb 11.3 L Hct 36.2 L MCV 85.6 MCH 26.7 L MCHC 31.2 L RDW 13.3 Plt Count 265 MPV 9.7 Neut # (Auto) 4.9 Lymph # (Auto) 1.7 [place] # (Auto) 0.4 Eos # (Auto) 0.1 Baso # (Auto) 0.1 Absolute Nucleated RBC 0.00 Nucleated RBC % 0.0 Sodium 142 Potassium 3.6 Chloride 104 Carbon Dioxide 27 Anion Gap 11.0 BUN 8 Creatinine 0.9 Estimated GFR (MDRD) 94 Glucose 111 H Calcium 9.4 HCG, Quant < 0.60 PD MEDICAL DECISION MAKING - ED course ED course: 21yo female who is about a month out from a presents with bleeding today slightly heavier than her menses and 5 pads today no symptoms of anemia. Her H&H is pretty good much better than the last one on the chart. Case discussed by phone with on-call OB, Dr. Rowe recommends NSAIDs. Departure - Departure Disposition: 01 Home, Self Care Clinical Impression: deliv NOS-unsp, Vaginal bleeding Condition: Good Record reviewed to determine appropriate education?: Yes Instructions: ED Bleed Irregular Vaginal Prescriptions: Ibuprofen [Motrin] 800 mg PO Q8H PRN #14 tablet PRN Reason: PAIN &/OR FEVER Comments: Follow-up with your OB in the next couple of weeks. Return for new or worsening symptoms.
[2021-09-27 17:36] LABS: CALCIUM 9.4 mg/dL (8.5-10.3); CREATININE 0.9 mg/dL (0.4-1.0); POTASSIUM 3.6 mmol/L (3.5-5.0)
[2021-09-27 17:43] VITALS: BP 112/70
== END 2021-09-27 18:03 | disposition home or self-care (01) ==
LOC: ED 16:57
DX: O72.1 Other immediate postpartum hemorrhage (principal); Z98.891 History of uterine scar from previous surgery
CPT/HCPCS: 36415; 80048; 84702; 85025; 86850; 86900; 86901; 99283

== ENCOUNTER 2023-07-15 21:24 | Emergency (ER) | payer OTHER, MEDICAID ==
[2023-07-15 21:31] VITALS: BP 128/64; O2SAT 99
[2023-07-15] MEDS ORDERED: SODIUM CHLORIDE 0.9% 1,000 ML IV STA (21:58)
[2023-07-15] MEDS ORDERED: ACETAMINOPHEN 500 MG TABLET PO STA (22:06)
--- NOTE | 2023-07-15 22:07 | ED Physician Documentation ---
History of Present Illness - Stated complaint Stated Complaint: PREG/DIZZY/RT SHOULDER PX - Chief complaint Chief Complaint: General - History obtained from History obtained from: Patient - Additonal information Additional information: 22-year-old at around 8 weeks gestation presents feeling dizzy lightheaded from poor appetite and nausea and vomiting more acutely related to which she did have this problem in her previous . She also has about the same length of time of atraumatic 2 weeks of right shoulder pain worse with any range of motion. There was no specific injury. Heat and gentle stretching do seem helpful. She did have a single small episode of vaginal bleeding about a week ago which self resolved. No other fluid loss or bleeding. 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 Medications Home Medications: Ambulatory Orders Medication Instructions Recorded Confirmed Metoclopramide [Reglan] 10 mg PO Q6H PRN #20 tablet 07/15/23 - Allergies Allergies/Adverse Reactions: Allergies Allergy/AdvReac Type Severity Reaction Status Date / Time No Known Drug Allergies Allergy Verified 07/15/23 21:27 - Social History Does the pt smoke?: No Smoking Status: Never smoker Does the pt drink ETOH?: No Does the pt have substance abuse?: No - Immunizations Immunizations are current?: Yes PD ED PE NORMAL - Vitals Vital signs reviewed: Yes - General General: Alert and 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, No acute distress - Neck Neck: Supple, no meningeal sign, No bony TTP - Cardiac Cardiac: RRR, No murmur - Respiratory Respiratory: No respiratory distress, Clear bilaterally - Abdomen Abdomen: Normal bowel sounds, Soft, Non tender - Female Female : Other (On bedside ultrasound I am able to identify an IUP. Too small to see any detail or heart tones. No free fluid.) - Extremities Extremities: Other (Mild posterior right shoulder tenderness. No severely limited range of motion but range of motion is painful for her.) - Neuro Neuro: Alert and 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, Normal speech Results - Vitals Vitals: Vital Signs - 24 hr 07/15/23 21:27 Temperature 36.8 C Heart Rate 73 Respiratory 16 Rate Blood Pressure 128/64 O2 Saturation 99 Oxygen O2 Source Room air - Labs Labs: Laboratory Tests 07/15/23 07/15/23 22:23 22:23 WBC 7.3 RBC 4.52 Hgb 12.0 Hct 38.0 MCV 84.1 MCH 26.5 L MCHC 31.6 L RDW 13.6 Plt Count 233 MPV 11.0 H Neut # (Auto) 4.3 Lymph # (Auto) 2.2 [place] # (Auto) 0.6 Eos # (Auto) 0.1 Baso # (Auto) 0.1 Absolute Nucleated RBC 0.00 Nucleated RBC % 0.0 Sodium 135 Potassium 3.9 Chloride 105 Carbon Dioxide 24 Anion Gap 6.0 BUN 10 Creatinine 0.7 Estimated GFR (MDRD) 125 Glucose 89 Calcium 9.6 PD Medical Decision Making - ED course ED course: 22-year-old at 8 weeks gestation presents with lightheadedness in the setting of poor appetite and vomiting and also atraumatic right shoulder pain that definitely seems musculoskeletal. Radiography deferred given status and unlikely bony involvement based on clinical exam. CBC and CMP unremarkable. Feeling better after IV fluids. Departure - Departure Disposition: 01 Home, Self Care Clinical Impression: Lightheaded Shoulder pain, right Qualifiers: Chronicity: acute Qualified Code(s): M25.511 - Pain in right shoulder Qualifiers: Weeks of gestation: 8 weeks Qualified Code(s): Z3A.08 - 8 weeks gestation of Condition: Good Record reviewed to determine appropriate education?: Yes Instructions: ED Strain Muscle Ext, ED Preg Established Normal Sxs Prescriptions: Metoclopramide [Reglan] 10 mg PO Q6H PRN #20 tablet PRN Reason: nausea or headache Comments: I sent the prescription electronically to [facility] in [place] Return for new or worsening symptoms. As far as the right shoulder pain goes, Tylenol per package instructions, heat a nd gentle stretching as appropriate. Try to drink plenty of fluids a suspect dehydration is why you are dizzy. I did write a prescription for nausea medicine that is safe in . Call your doctor to arrange a follow-up appointment, make the next available appointment. In the interim, return anytime if worse or if new symptoms develop.
[2023-07-15 22:36] LABS: BASOPHILS # (AUTO) 0.1 10^3/uL (0.0-0.1); BASOPHILS % (AUTO) 0.7 %; EOSINOPHILS # (AUTO) 0.1 10^3/uL (0.0-0.7); EOSINOPHILS % (AUTO) 1.2 %; LYMPHOCYTES # (AUTO) 2.2 10^3/uL (1.5-3.5); LYMPHOCYTES % (AUTO) 29.8 %; MEAN CORPUSCULAR HEMOGLOBIN 26.5 pg (27.0-31.0); MEAN CORPUSCULAR HGB CONC 31.6 g/dL (32.0-36.0); MEAN CORPUSCULAR VOLUME 84.1 fL (81.0-99.0); MONOCYTES # (AUTO) 0.6 10^3/uL (0.0-1.0); MONOCYTES % (AUTO) 8.4 %; NEUTROPHILS # (AUTO) 4.3 10^3/uL (1.5-6.6); NEUTROPHILS % (AUTO) 59.5 %; PLT - PLATELET COUNT 233 10^3/uL (130-450); RED BLOOD COUNT 4.52 10^6/uL (4.20-5.40); RED CELL DISTRIBUTION WIDTH 13.6 % (12.0-15.0); WHITE BLOOD COUNT 7.3 x10^3/uL (4.8-10.8)
[2023-07-15 22:52] LABS: CALCIUM 9.6 mg/dL (8.5-10.3); CREATININE 0.7 mg/dL (0.6-1.3); POTASSIUM 3.9 mmol/L (3.5-4.5)
== END 2023-07-15 23:29 | disposition home or self-care (01) ==
LOC: ED 21:24
DX: O26.891 Other specified pregnancy related conditions, first trimester (principal); R42 Dizziness and giddiness; O99.891 Other specified diseases and conditions complicating pregnancy; M25.511 Pain in right shoulder; Z3A.08 8 weeks gestation of pregnancy
CPT/HCPCS: 36415; 80048; 85025; 99283; A9270

== ENCOUNTER 2023-08-09 22:20 | Emergency (ER) | payer OTHER, MEDICAID ==
--- NOTE | 2023-08-09 22:28 | ED Physician Documentation ---
PD HPI HEADACHE - Stated complaint Stated Complaint: IBARRA - Chief complaint Chief Complaint: Neuro - History obtained from History obtained from: Patient - Additional information Additional information: HPI from patient. Patient complains of headache, bilateral frontal headache although predominantly right-sided. This headache started this afternoon, gradual onset without any specific inciting event. She denies numbness, weakness, visual changes. Patient is approximately 12 weeks (). After the headache started, she took her blood pressure using a cuff at a local pharmacy and found blood pressure to be 136/79. Patient took some Tylenol and a repeat blood pressure was 123/84. Patient says she contacted her MANAGER OF TRANSPORTATION on-call and was advised to come to the emergency department. Patient denies abdominal pain, denies pelvic pain, denies vaginal bleeding. Patient says she had no complications or difficulty with her first . Denies nausea, denies leg swelling. Review of Systems Cardiac: reports: Reviewed and negative Respiratory: reports: Reviewed and negative GI: reports: Reviewed and negative Neurologic: reports: Headache. 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 Medications Home Medications: Ambulatory Orders Medication Instructions Recorded Confirmed Metoclopramide [Reglan] 10 mg PO Q6H PRN #20 tablet 07/15/23 - Allergies Allergies/Adverse Reactions: Allergies Allergy/AdvReac Type Severity Reaction Status Date / Time No Known Drug Allergies Allergy Verified 08/09/23 22:22 - Social History Does the pt smoke?: No Smoking Status: Never smoker Does the pt drink ETOH?: No Does the pt have substance abuse?: No - Immunizations Immunizations are current?: Yes PD ED PE NORMAL - Vitals Vital signs reviewed: Yes - General General: Alert and 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, No acute distress, Well developed/nourished - HEENT HEENT: PERRL, EOMI - Cardiac Cardiac: RRR, No murmur - Respiratory Respiratory: No respiratory distress, Clear bilaterally - Abdomen Abdomen: Soft, Non tender - Extremities Extremities: No edema Results - Vitals Vitals: Vital Signs - 24 hr 08/09/23 08/09/23 08/09/23 22:23 22:52 23:17 Temperature 36.8 C Heart Rate 70 77 77 Respiratory 16 16 16 Rate Blood Pressure 140/70 H 122/81 H 130/80 O2 Saturation 100 100 100 Oxygen O2 Source Room air PD Medical Decision Making - ED course Complexity details: considered differential, d/w patient ED course: Patient's chief complaint is headache. She is in NAD. She had some minimally elevated blood pressures earlier this afternoon. Given that she is only 12 weeks , and her blood pressures are only mildly elevated, I am not clear as to why she would be advised to come to the emergency department for evaluation. At this time, there are no emergent tests that are indicated. She has no neurologic complaints aside from headache (denies numbness, weakness, visual changes), and, without any intervention, her blood pressure improves to 122/81 and then 130/80. She is given a take-home pack of Vicodin for her headache if she feels they are beyond control of OTC medication (I advised her to not take acetaminophen or acetaminophen-containing products within 4 hours of taking the vicodin, as there is acetaminophen in the vicodin). Return precautions are reviewed. Departure - Departure Disposition: 01 Home, Self Care Clinical Impression: Headache Qualifiers: Headache type: unspecified Headache chronicity pattern: acute headache Intractability: not intractable Qualified Code(s): R51.9 - Headache, unspecified Condition: Good Instructions: ED Cephalgia Unspecified Comments: Your blood pressure was minimally elevated when he first checked into the emergency department, but, without intervention, subsequent blood pressure readings were within the normal range. Regarding your blood pressure and your headaches, no emergent testing is indic ated at this time. You should contact your MANAGER OF TRANSPORTATION, as well as your PCP when their offices are next open to arrange for next available appointment for follow-up/reevaluation. Forms: PCP List Discharge Date/Time: 08/09/23 23:19
[2023-08-09 22:32] VITALS: O2SAT 100
[2023-08-09] MEDS ORDERED: HYDROcod/ACET 5/325 Prepack 4 PO STA (23:04)
[2023-08-09 23:26] VITALS: BP 130/80
== END 2023-08-09 23:19 | disposition home or self-care (01) ==
LOC: ED 22:20
DX: O99.891 Other specified diseases and conditions complicating pregnancy (principal); R51.9 Headache, unspecified; O16.1 Unspecified maternal hypertension, first trimester; Z3A.12 12 weeks gestation of pregnancy
CPT/HCPCS: 99282; 99283

== ENCOUNTER 2023-08-28 14:59 | Outpatient (CLI) | payer OTHER, MEDICAID ==
[2023-08-28 17:58] LABS: BASOPHILS % (AUTO) 0.2 %; EOSINOPHILS # (AUTO) 0.1 10^3/uL (0.0-0.7); EOSINOPHILS % (AUTO) 0.6 %; HCT - HEMATOCRIT 37.9 % (37.0-47.0); HGB - HEMOGLOBIN 12.2 g/dL (12.0-16.0); LYMPHOCYTES # (AUTO) 2.1 10^3/uL (1.5-3.5); MEAN CORPUSCULAR HEMOGLOBIN 27.1 pg (27.0-31.0); MEAN CORPUSCULAR HGB CONC 32.2 g/dL (32.0-36.0); MEAN CORPUSCULAR VOLUME 84.2 fL (81.0-99.0); MEAN PLATELET VOLUME 11.4 fL (7.9-10.8); MONOCYTES # (AUTO) 0.5 10^3/uL (0.0-1.0); MONOCYTES % (AUTO) 5.9 %; NEUTROPHILS # (AUTO) 5.4 10^3/uL (1.5-6.6); NEUTROPHILS % (AUTO) 66.8 %; PLT - PLATELET COUNT 251 10^3/uL (130-450); RED CELL DISTRIBUTION WIDTH 13.4 % (12.0-15.0)
[2023-08-28 18:22] LABS: THYROID STIMULATING HORMONE 2.86 uIU/mL (0.34-5.60)
[2023-08-28 20:10] LABS: ESTIMATED AVERAGE GLUCOSE 103 mg/dL (70-100); HEMOGLOBIN A1c% 5.2 % (4.27-6.07)
[2023-08-29 03:10] LABS: HBsAG SCREEN Negative (Negative)
[2023-08-29 05:13] LABS: RPR Non Reactive (Non Reactive)
[2023-08-29 06:09] LABS: HCV AB Non Reactive (Non Reactive); HIV SCREEN 4TH GENERATION Non Reactive (Non Reactive)
[2023-08-29 09:08] LABS: VARICELLA-ZOSTER AB IGG <135 index (Immune >165)
== END 2023-08-28 15:00 | disposition home or self-care (01) ==
LOC: LAB.N 14:59 → MERGE 14:59 → LAB.N 15:00
PROVIDERS: ATTEND Obstetrics & Gynecology
DX: O99.210 Obesity complicating pregnancy, unspecified trimester (principal); E66.9 Obesity, unspecified
CPT/HCPCS: 36415; 83036; 84443; 84450; 85025; 86592; 86762; 86787; 86803; 86850; 86900; 86901; 87340; 87389

== ENCOUNTER 2023-08-31 12:10 | Outpatient (CLI) | payer OTHER, MEDICAID ==
[2023-08-31 21:34] LABS: NEISSERIA GONORRHOEAE DNA NEGATIVE (NEGATIVE); TRICHOMONAS VAGINALIS DNA NEGATIVE (NEGATIVE)
[2023-08-31 21:36] LABS: CHLAMYDIA TRACHOMATIS DNA POSITIVE (NEGATIVE)
== END 2023-08-31 12:11 | disposition home or self-care (01) ==
LOC: LAB.N 12:10
PROVIDERS: ATTEND Obstetrics & Gynecology
DX: O09.891 Supervision of other high risk pregnancies, first trimester (principal); O99.891 Other specified diseases and conditions complicating pregnancy; N89.8 Other specified noninflammatory disorders of vagina
CPT/HCPCS: 36415; 82950; 87491; 87591; 87661

== ENCOUNTER 2023-10-10 08:00 | Outpatient (CLI) | payer OTHER, MEDICAID ==
[2023-10-10 19:47] LABS: CHLAMYDIA TRACHOMATIS DNA NEGATIVE (NEGATIVE); NEISSERIA GONORRHOEAE DNA NEGATIVE (NEGATIVE); TRICHOMONAS VAGINALIS DNA NEGATIVE (NEGATIVE)
== END 2023-10-10 23:59 | disposition home or self-care (01) ==
LOC: LAB.WC 08:00
PROVIDERS: ATTEND Obstetrics & Gynecology
DX: A56.09 Other chlamydial infection of lower genitourinary tract (principal)
CPT/HCPCS: 87491; 87591; 87661

== ENCOUNTER 2023-10-11 15:09 | Outpatient (CLI) | payer OTHER, MEDICAID ==
--- NOTE | 2023-10-14 10:10 | Ultrasound Report ---
PROCEDURE: OB Anatomy Scan INDICATIONS: SUPERVISION OF HIGH RISK OUTSIDE/PRIOR DATING DATA: Last menstrual period (LMP): 05/18/2023. LMP-based estimated date of delivery (MARIYA): 02/22/2024. First dating scan (date and location): 08/04/2023. Estimated date of delivery (MARIYA) from first dating scan: 02/24/2024. The below data below was generated using the sonographic MARIYA of 02/24/2024 TECHNIQUE: Real-time scanning was performed of the fetus, with image documentation and biometric measurements. Endovaginal scanning: No COMPARISON: 08/04/2023 FINDINGS: General: A single living intrauterine gestation is present. Presentation: Breech Placenta: Placental position is anterior, without previa. Amniotic fluid index: 16.1 cm, within normal limits for gestational age. Largest pocket is 6.0 cm heart rate: 158 beats per minute. Maternal cervical canal: Closed and 5.8 cm long; normal length is 2.5 cm or more. biometrics: Biparietal diameter: 4.8 cm, 20 weeks 3 days 28th percentile Head circumference: 18.2 cm, 20 weeks 5 days 32nd percentile Abdominal circumference: 15.3 cm, 20 weeks 4 days 32nd percentile Femur length: 3.3 cm, 20 weeks 4 days 31st percentile Estimated gestational age from initial scan: 20 weeks 6 days Composite gestational age from present scan: 20 weeks 1 day Estimated weight and percentile: 361 g, 29th percentile Measurement variability in biometric dating: +/- 10 days from 12-20 weeks gestation, +/- 2 weeks from 20-30 weeks gestation, +/- 3 weeks at 30 weeks gestation or later. Anatomic survey: Neuro: Ventricles are normal at less than 10 mm. Cisterna magna is normal at 3-11 mm. Cerebellum i s normal in size and morphology. Nuchal skin fold: Normal at less than 6 mm between 14 and 20 weeks gestational age. Face: Nose and lips, facial profile are normal. Spine: No evidence for spina bifida. Heart: 4-chambered heart is present, with normal ventricular outflow tracts. Diaphragm: Diaphragm is intact. Stomach: Left-sided stomach is present. Kidneys: No hydronephrosis. Normal is less than 5 mm in 2nd trimester, less than 7 mm in 3rd trimester. Cord: 3 vessel cord has orthotopic insertion. Bladder: Normal in size. Extremities: All 4 extremities are visualized. IMPRESSION: 1. Single living intrauterine with appropriate growth. 2. Symmetric growth and normal anatomy. 3. Anterior placenta without previa. Reviewed by: Martina Reynoso MD on 10/14/2023 10:09 AM [facility] Approved by: Martina Reynoso MD on 10/14/2023 10:09 AM [facility] Station ID: [id number]
== END 2023-10-11 15:10 | disposition home or self-care (01) ==
LOC: DI 15:09
PROVIDERS: ATTEND Nurse Practitioner
DX: O09.892 Supervision of other high risk pregnancies, second trimester (principal); Z3A.20 20 weeks gestation of pregnancy

== ENCOUNTER 2023-10-21 00:46 | Emergency (ER) | payer OTHER, MEDICAID ==
[2023-10-21 01:08] VITALS: BP 130/68; O2SAT 99
[2023-10-21 01:33] LABS: RAPID STREP SCREEN Negative (Negative)
--- NOTE | 2023-10-21 02:19 | ED Physician Documentation ---
PD HPI HEENT - Stated complaint Stated Complaint: SORE THROAT - Chief complaint Chief Complaint: Heent - History obtained from History obtained from: Patient - Additional information Additional information: 23-year-old female presents by private vehicle from home for evaluation of intermittent sore throat since May. She states that several months ago she and her both tested positive for chlamydia and completed treatment with subsequent test of cure, however she is concerned that chlamydia may be contributing to her sore throat. She also reports concern that she may have cancer causing her sore throat. States mother has hx of breast cancer, father has hx of prostate cancer. Previously vaped, hasn't vaped since . Previous social alcohol use, none since . Denies difficultly swallowing. Review of Systems Constitutional: denies: Fever, Chills Throat: reports: Sore throat. 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 Medications Home Medications: Ambulatory Orders Medication Instructions Recorded Confirmed Pnv No.95/Ferrous Fum/Folic AC 1 each PO DAILY 10/21/23 10/21/23 [ Tablet] Sertraline HCl 100 mg PO DAILY 10/21/23 10/21/23 - Allergies Allergies/Adverse Reactions: Allergies Allergy/AdvReac Type Severity Reaction Status Date / Time No Known Drug Allergies Allergy Verified 10/21/23 01:00 - Social History Does the pt smoke?: No Smoking Status: Never smoker Does the pt drink ETOH?: No Does the pt have substance abuse?: No - Immunizations Immunizations are current?: Yes PD ED PE NORMAL - Vitals Vital signs reviewed: Yes - General General: Alert and 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, No acute distress, Well developed/nourished - HEENT HEENT: Atraumatic, PERRL, EOMI, Moist mucous membranes, Other (mild pharyngeal erythema without edema or exudates) - Cardiac Cardiac: RRR, Strong equal pulses - Respiratory Respiratory: No respiratory distress, Clear bilaterally - Derm Derm: Normal color, Warm and dry, No rash - Extremities Extremities: No deformity, No tenderness to palpate, Normal ROM s pain, No edema - Neuro Neuro: Alert and 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, 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, No motor deficit, Normal speech Results - Vitals Vitals: Vital Signs - 24 hr 10/21/23 01:00 Temperature 36.8 C Heart Rate 88 Respiratory 16 Rate Blood Pressure 130/68 O2 Saturation 99 Oxygen O2 Source Room air - Labs Labs: Laboratory Tests 10/21/23 01:15 Group A Strep Rapid Negative PD Medical Decision Making - ED course Complexity details: reviewed results, re-evaluated patient, considered differential, d/w patient ED course: Intermittent sore throat for several months, patient reports concerns that she may have cancer or that the chlamydia that she previously contracted is causing her sore throat. Pharynx looks mildly erythematous without edema or exudates. No trismus, difficulty swallowing, or voice changes. I explained to the patient that evaluation for throat cancer would be performed with studies that are not obtainable in the emergency department such as endoscopy or laryngoscopy. Patient declines laboratory work at this time. I did order a gonorrhea and chlamydia test, this is a send out test that will take 3 to 5 days for results. Patient will look for her results on her [employer] application and will follow- up with her PRIMARY MILL ROLLER for any additional concerns. Departure - Departure Disposition: 01 Home, Self Care Clinical Impression: Pharyngitis Qualifiers: Pharyngitis/tonsillitis etiology: unspecified etiology Qualified Code(s): J02.9 - Acute pharyngitis, unspecified Condition: Stable Instructions: ED Pharyngitis Viral Report Pending Comments: The test we performed today will not result for the next 3 to 5 days. Please monitor your patient chart for results and follow-up with your PRIMARY MILL ROLLER as usual for your . Forms: PCP List Discharge Date/Time: 10/21/23 02:46
== END 2023-10-21 02:46 | disposition home or self-care (01) ==
LOC: ED 00:46
DX: J02.9 Acute pharyngitis, unspecified (principal)
CPT/HCPCS: 81599; 87070; 87430; 87491; 87591; 99283

== ENCOUNTER 2023-11-30 13:39 | Outpatient (CLI) | payer OTHER, MEDICAID ==
[2023-11-30 19:08] LABS: HCT - HEMATOCRIT 34.7 % (37.0-47.0); HGB - HEMOGLOBIN 10.8 g/dL (12.0-16.0); MEAN CORPUSCULAR HEMOGLOBIN 26.8 pg (27.0-31.0); MEAN CORPUSCULAR HGB CONC 31.1 g/dL (32.0-36.0); MEAN CORPUSCULAR VOLUME 86.1 fL (81.0-99.0); MEAN PLATELET VOLUME 11.7 fL (7.9-10.8); RED BLOOD COUNT 4.03 10^6/uL (4.20-5.40); RED CELL DISTRIBUTION WIDTH 12.3 % (12.0-15.0); WHITE BLOOD COUNT 8.6 x10^3/uL (4.8-10.8)
== END 2023-11-30 13:40 | disposition home or self-care (01) ==
LOC: LAB.N 13:39
PROVIDERS: ATTEND Obstetrics & Gynecology
DX: O34.211 Maternal care for low transverse scar from previous cesarean delivery (principal)
CPT/HCPCS: 36415; 82950; 85027

== ENCOUNTER 2023-12-05 18:08 | Outpatient (CLI) | payer OTHER, MEDICAID ==
--- NOTE | 2023-12-05 18:56 | PROVIDER PROGRESS NOTE ---
- HPI Chief Complaint: GI symptoms Current : Vital Signs Temperature 98.1 F 12/05/23 18:17 Heart Rate 115 H 12/05/23 18:17 Respiratory Rate 14 12/05/23 18:17 Blood Pressure 108/64 12/05/23 18:17 Temperature 98.1 F 12/05/23 18:19 Heart Rate 115 H 12/05/23 18:17 Respiratory Rate 14 12/05/23 18:17 Blood Pressure 108/64 12/05/23 18:17 O2 Saturation If not protocol: Oxygen Flow, liters/minute - Procedures OB Procedure Performed: NST Diagnosis/Indication for NST: Decreased movement Service Date of procedure: 12/05/23 (12/05/23) - Plan Plan: Patient is a [id number]-lpa-year-old G3, P2 at 28 weeks 5 days gestation presenting to triage for GI illness and decreased movement. She got sick at approximately 8 AM this morning. Has been vomiting and not able to keep much down. Does have small amount of diarrhea, but not as problematic as the vomiting. Other family numbers have been sick, daughter who was sick for approximate 24 hours, feeling better today. has diarrhea but no vomiting. No leaking or bleeding. She denies headache, right upper quadrant pain, changes in vision Physical Exam Constitutional: alert, no acute distress, well hydrated, well developed, well nourished, appropriate dress. Cardiovascular: Regular rate and rhythm. Respiratory: no respiratory distress. Abdomen: nondistended, nontender, no guarding. Psych: affect and mood appropriate, normal interaction, good eye contact. . FHT: 155 beats per baseline, moderate variability, accelerations present, no decelerations. [place]: Quiescent reactive NST Assessment and plan Gastroenteritis -[place] better after ondansetron administration. Prescription sent for patient. -Encourage small, frequent sips of water and food as tolerated. Discussed the most GI illnesses is short-lived. If diarrhea becomes worse, she can try antidiarrheal. Encouraged good handwashing and avoiding spreading in her household. Decreased movement -Reactive NST -Baby moving better since arrival. -Discussed movement expectations.
[2023-12-05] MEDS: ONDANSETRON ODT 4 MG TABLET TL PRN (19:11)
[2023-12-05 19:12] LABS: BILIRUBIN,URINE NEGATIVE (NEGATIVE); GLUCOSE, URINE (UA) NEGATIVE (NEGATIVE); KETONES,URINE (UA) TRACE mg/dL (NEGATIVE); LEUKOCYTE ESTERASE, URINE NEGATIVE (NEGATIVE); NITRITE,URINE NEGATIVE (NEGATIVE); OCCULT BLOOD,URINE NEGATIVE (NEGATIVE); PH,URINE 6.5 PH (5.0-7.5); PROTEIN,URINE TRACE mg/dL (NEGATIVE); UROBILINOGEN,URINE 0.2 (NORMAL) E.U./dL (NORMAL)
[2023-12-05 19:21] LABS: CLARITY,URINE CLEAR (CLEAR)
[2023-12-05 19:27] LABS: BACTERIA,URINE Moderate /HPF (None Seen); RBC,URINE 0-5 /HPF (0-5); SQUAMOUS EPITHELIAL CELL,UR MOD Squamous (<= Few); WBC,URINE 0-3 /HPF (0-5)
[2023-12-05 20:02] VITALS: BP 108/62
== END 2023-12-05 19:53 | disposition home or self-care (01) ==
LOC: WFO 18:08 → FBP 18:11 → WFO 19:53
PROVIDERS: ATTEND Obstetrics & Gynecology
DX: O99.613 Diseases of the digestive system complicating pregnancy, third trimester (principal); K52.9 Noninfective gastroenteritis and colitis, unspecified; Z3A.28 28 weeks gestation of pregnancy; O36.8130 Decreased fetal movements, third trimester, not applicable or unspecified
CPT/HCPCS: 59025; 81001; 99213; Q0162

== ENCOUNTER 2023-12-10 15:44 | Outpatient (CLI) | payer OTHER, MEDICAID ==
[2023-12-10 16:11] VITALS: BP 125/64
--- NOTE | 2023-12-13 17:54 | PROCEDURE REPORT ---
- HPI Diagnosis/Indication for NST: Other ( tachycardia noted on office exam) Current EDU 02/22/24 Gestation 29 Weeks and 3 Days 2 Para 1 Vital Signs Temperature 97.7 F 12/10/23 16:01 Heart Rate 88 12/10/23 16:01 Respiratory Rate 16 12/10/23 16:01 Temperature 97.7 F 12/10/23 16:06 Heart Rate 88 12/10/23 16:06 Respiratory Rate 16 12/10/23 16:06 Blood Pressure 125/64 12/10/23 16:06 O2 Saturation If not protocol: Oxygen Flow, liters/minute - NST Procedure NST Procedure Start Date 12/10/23 Start Time 15:59 Stop Time 16:27 Vibroacoustic Stimulation Used No Patient States Movement Yes NST reivewed. normal baseline. moderate variability. + acels. no decels. no tachycardia noted. assessment: reactive NST Plan: care as scheduled.
== END 2023-12-10 16:35 | disposition home or self-care (01) ==
LOC: WFO 15:44 → FBP 15:47 → WFO 16:35
PROVIDERS: ATTEND Obstetrics & Gynecology
DX: O36.8330 Maternal care for abnormalities of the fetal heart rate or rhythm, third trimester, not applicable or unspecified (principal); Z3A.29 29 weeks gestation of pregnancy
CPT/HCPCS: 59025

== ENCOUNTER 2023-12-19 15:52 | Outpatient (CLI) | payer OTHER, MEDICAID ==
[2023-12-19 16:22] LABS: HCT - HEMATOCRIT 33.9 % (37.0-47.0); HGB - HEMOGLOBIN 10.8 g/dL (12.0-16.0); MEAN CORPUSCULAR HEMOGLOBIN 27.2 pg (27.0-31.0); MEAN CORPUSCULAR HGB CONC 31.9 g/dL (32.0-36.0); MEAN CORPUSCULAR VOLUME 85.4 fL (81.0-99.0); MEAN PLATELET VOLUME 10.8 fL (7.9-10.8); RED BLOOD COUNT 3.97 10^6/uL (4.20-5.40); WHITE BLOOD COUNT 9.9 x10^3/uL (4.8-10.8)
== END 2023-12-19 15:53 | disposition home or self-care (01) ==
LOC: LAB 15:52
PROVIDERS: ATTEND Obstetrics & Gynecology
DX: Z34.90 Encounter for supervision of normal pregnancy, unspecified, unspecified trimester (principal)
CPT/HCPCS: 36415; 82728; 85027

== ENCOUNTER 2023-12-30 13:44 | Outpatient (CLI) | payer OTHER, MEDICAID ==
--- NOTE | 2023-12-30 15:21 | Ultrasound Report ---
PROCEDURE: OB Follow up INDICATIONS: OBESITY OUTSIDE/PRIOR DATING DATA: Last menstrual period (LMP): 05/18/2023. LMP-based estimated date of delivery (MARIYA): 02/22/2024. First dating scan (date and location): 08/04/2023. Estimated date of delivery (MARIYA) from first dating scan: 02/24/2024. The below data below was generated using the ultrasound MARIYA of 02/24/2024 TECHNIQUE: Real-time scanning was performed of the fetus, with image documentation and biometric measurements. Endovaginal scanning: Not performed. COMPARISON: 10/11/2022 FINDINGS: General: A single living intrauterine gestation is present. Presentation: Vertex Placenta: Placental position is anterior, without previa. Amniotic fluid index: 16.5 cm, within normal limits for gestational age. heart rate: 147 beats per minute. Maternal cervical canal: 4.8 cm long; normal length is 2.5 cm or more. biometrics: Biparietal diameter: 8.1 cm, 32 weeks 5 days, 62nd percentile Head circumference: 30.5 cm, 33 weeks 6 days, 64th percentile Abdominal circumference: 29.7 cm, 33 weeks 4 days, 89th percentile Femur length: 6.3 cm, 32 weeks 5 days, 58th percentile Estimated gestational age from initial scan: 32 weeks 0 days Composite gestational age from present scan: 33 weeks 2 days Estimated weight and percentile: 2167 g, 81st percentile Measurement variability in biometric dating: +/- 10 days from 12-20 weeks gestation, +/- 2 weeks from 20-30 weeks gestation, +/- 3 weeks at 30 weeks gestation or more. Other: Not applicable. IMPRESSION: 1. Living third trimester intrauterine with no sonographic evidence of complications. 2. Current ultrasound age is 9 days greater than clinical age based on initial first trimester ultras ound Reviewed by: John Cooley MD on 12/30/2023 3:19 PM PDT Approved by: John Cooley MD on 12/30/2023 3:19 PM PDT Station ID: [id number]
== END 2023-12-30 13:45 | disposition home or self-care (01) ==
LOC: DI 13:44
PROVIDERS: ATTEND Obstetrics & Gynecology
DX: O99.213 Obesity complicating pregnancy, third trimester (principal); Z3A.33 33 weeks gestation of pregnancy

== ENCOUNTER 2024-01-14 15:06 | Emergency (ER) | payer OTHER, MEDICAID ==
[2024-01-14 15:23] VITALS: BP 115/65; O2SAT 98
--- NOTE | 2024-01-14 15:41 | ED Physician Documentation ---
History of Present Illness - Stated complaint Stated Complaint: HIGH BP,PALPITATIONS - Chief complaint Chief Complaint: Cardiac - History obtained from History obtained from: Patient - History of Present Illness Timing: Today Pain level max: 0 Pain level now: 0 - Additonal information Additional information: Patient is a 23-year-old female who is currently approximately 34 weeks . She states that yesterday she felt lightheaded when she was cooking. She states that she felt lightheaded again today when she was at the store. Both of these episodes resolved quickly. She states she took her blood pressure at the store and it was 123/83 and her heart rate was 120 bpm. She decided to come in and be seen at that point. No vaginal bleeding, discharge. No abdominal pain, cramping. She states that she does occasionally have [place] Fuentes contractions at home. No fevers. No chills. No cough. No congestion. No vomiting. No dysuria. Otherwise asymptomatic. Currently not having any symptoms. Review of Systems Constitutional: denies: Fever, Chills Respiratory: denies: Cough GI: denies: Nausea, Vomiting, Diarrhea : denies: Dysuria Skin: denies: Rash Musculoskeletal: denies: Neck pain, Back pain Neurologic: denies: Headache PD PAST MEDICAL HISTORY - Past Medical History Past Medical History: Yes Cardiovascular: None Respiratory: None Neuro: None Endocrine/Autoimmune: None Psych: Depression - Past Surgical History Past Surgical History: No /[employer]KE [employer]ER: section - Present Medications Home Medications: Ambulatory Orders Medication Instructions Recorded Confirmed Pnv No.95/Ferrous Fum/Folic AC 1 each PO DAILY 10/21/23 01/14/24 [ Tablet] Sertraline HCl 100 mg PO DAILY 10/21/23 01/14/24 Ondansetron Odt [Zofran Odt] 4 mg TL Q6H PRN #15 tablet 12/05/23 01/14/24 Ferrous Sulfate [Feosol] 325 mg PO BID 01/14/24 01/14/24 - Allergies Allergies/Adverse Reactions: Allergies Allergy/AdvReac Type Severity Reaction Status Date / Time No Known Drug Allergies Allergy Verified 01/14/24 15:16 - Social History Does the pt smoke?: No Smoking Status: Never smoker Does the pt drink ETOH?: No Does the pt have substance abuse?: No - Immunizations Immunizations are current?: Yes PD ED PE NORMAL - Vitals Vital signs reviewed: Yes - General General: Alert and 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, No acute distress - HEENT HEENT: PERRL, Moist mucous membranes - Neck Neck: Supple, no meningeal sign - Cardiac Cardiac: RRR - Respiratory Respiratory: Clear bilaterally - Abdomen Abdomen: Soft, Other (Gravid abdomen, nontender) - Back Back: No CVA TTP - Derm Derm: Warm and dry - Extremities Extremities: No edema, No calf tenderness / cord - Neuro Neuro: Alert and 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 - Psych Psych: Normal mood, Normal affect Results - Vitals Vitals: Vital Signs - 24 hr 01/14/24 15:11 Temperature 36.8 C Heart Rate 111 H Respiratory 18 Rate Blood Pressure 115/65 O2 Saturation 98 Oxygen O2 Source Room air - EKG (time done) 1521 EKG releavant findings:: EKG personally interpreted by author of this note. Relevant findings are: Rate: Rate (enter#) (106) Rhythm: Sinus tachycardia [place]: Normal Intervals: Normal [place] QRS: Normal Ischemia: Normal ST segments - Labs Labs: Laboratory Tests 01/14/24 01/14/24 01/14/24 14:52 15:34 15:34 WBC 8.7 RBC 4.24 Hgb 11.4 L Hct 36.5 L MCV 86.1 MCH 26.9 L MCHC 31.2 L RDW 14.7 Plt Count 186 MPV 11.1 H Neut # (Auto) 6.2 Lymph # (Auto) 1.6 [place] # (Auto) 0.8 Eos # (Auto) 0.0 Baso # (Auto) 0.0 Absolute Nucleated RBC 0.00 Nucleated RBC % 0.0 Sodium 135 Potassium 4.1 Chloride 103 Carbon Dioxide 25 Anion Gap 7.0 BUN 8 Creatinine 0.6 Estimated GFR (MDRD) 148 Glucose 99 Calcium 9.6 Phosphorus 3.1 Magnesium 1.5 L Total Bilirubin 0.3 AST 10 ALT 7 L Alkaline Phosphatase 62 Total Protein 6.6 Albumin 3.5 Globulin 3.1 Albumin/Globulin Ratio 1.1 Lipase 24 Urine Color YELLOW Urine Clarity HAZY Urine pH 7.0 Ur Specific [place] 1.020 Urine Protein NEGATIVE Urine Glucose (UA) NEGATIVE Urine Ketones NEGATIVE Urine Occult Blood NEGATIVE Urine Nitrite NEGATIVE Urine Bilirubin NEGATIVE Urine Urobilinogen 0.2 (NORMAL) Ur Leukocyte Esterase NEGATIVE Urine RBC None Seen Urine WBC 0-3 Ur Squamous Epith Cells MANY Squamous H Amorphous Sediment Rare Urine Bacteria Moderate H Ur Microscopic Review INDICATED Urine Culture Comments NOT INDICATED PD Medical Decision Making - ED course Complexity details: reviewed results, re-evaluated patient, considered differential, d/w patient, d/w sales consultant insurance ED course: 23-year-old female with intermittent lightheadedness over the past 2 days. No acute abnormalities here other than a very mild anemia. This is unchanged from her normal baseline testing. Her chemistry does reveal hypomagnesemia and this was replaced. She was given a liter of IV fluids. She is not hypertensive here. Mild tachycardia consistent with her stage of . Discussed the case with Dr. Rowe, OB. Patient can follow-up as an outpatient. Continue current care. Patient counseled regarding signs and symptoms for which I believe and urgent re-evaluation would be necessary. Patient with good understanding of and agreement to plan and is comfortable going home at this time This document was made in part using voice recognition software. While efforts are made to proofread this document, sound alike and grammatical errors may occur. Departure - Departure Disposition: 01 Home, Self Care Clinical Impression: Dehydration, Hypomagnesemia, Palpitations Qualifiers: Weeks of gestation: 34 weeks Qualified Code(s): Z3A.34 - 34 weeks gestation of Condition: Good Instructions: ED Care Follow-Up: Gallito Rowe MD [Provider Admit Priv/Credential] - Within 1 week Comments: Your magnesium was replaced today. You are given IV fluids as well. There is no other significant abnormalities in your laboratory testing, EKG or telemetry in the emergency department. Please follow-up with your OB for further care. Please return if you worsen. Forms: PCP List Discharge Date/Time: 01/14/24 17:10
[2024-01-14 15:42] LABS: BASOPHILS % (AUTO) 0.2 %; EOSINOPHILS % (AUTO) 0.5 %; HCT - HEMATOCRIT 36.5 % (37.0-47.0); HGB - HEMOGLOBIN 11.4 g/dL (12.0-16.0); LYMPHOCYTES # (AUTO) 1.6 10^3/uL (1.5-3.5); MEAN CORPUSCULAR HEMOGLOBIN 26.9 pg (27.0-31.0); MEAN CORPUSCULAR HGB CONC 31.2 g/dL (32.0-36.0); MEAN CORPUSCULAR VOLUME 86.1 fL (81.0-99.0); MEAN PLATELET VOLUME 11.1 fL (7.9-10.8); MONOCYTES # (AUTO) 0.8 10^3/uL (0.0-1.0); MONOCYTES % (AUTO) 8.6 %; NEUTROPHILS # (AUTO) 6.2 10^3/uL (1.5-6.6); NEUTROPHILS % (AUTO) 71.2 %; PLT - PLATELET COUNT 186 10^3/uL (130-450); RED BLOOD COUNT 4.24 10^6/uL (4.20-5.40); RED CELL DISTRIBUTION WIDTH 14.7 % (12.0-15.0); WHITE BLOOD COUNT 8.7 x10^3/uL (4.8-10.8)
[2024-01-14] MEDS: SODIUM CHLORIDE 0.9% 1,000 ML IV STA (15:52)
[2024-01-14 15:54] LABS: ALBUMIN 3.5 g/dL (3.2-5.5); ALBUMIN/GLOBULIN RATIO 1.1 (1.0-2.2); BILIRUBIN,TOTAL 0.3 mg/dL (0.2-1.0); CALCIUM 9.6 mg/dL (8.5-10.3); CREATININE 0.6 mg/dL (0.6-1.3); MAGNESIUM 1.5 mg/dL (1.7-2.3); PHOSPHORUS 3.1 mg/dL (2.5-5.0); POTASSIUM 4.1 mmol/L (3.5-4.5); TOTAL PROTEIN 6.6 g/dL (6.4-8.9)
[2024-01-14] MEDS: MAGNESIUM SULFATE 2 GRAM 2 GM/50 ML BAG IV ONE (16:06)
[2024-01-14 16:17] LABS: BILIRUBIN,URINE NEGATIVE (NEGATIVE); GLUCOSE, URINE (UA) NEGATIVE (NEGATIVE); KETONES,URINE (UA) NEGATIVE (NEGATIVE); LEUKOCYTE ESTERASE, URINE NEGATIVE (NEGATIVE); NITRITE,URINE NEGATIVE (NEGATIVE); OCCULT BLOOD,URINE NEGATIVE (NEGATIVE); PROTEIN,URINE NEGATIVE (NEGATIVE); UROBILINOGEN,URINE 0.2 (NORMAL) E.U./dL (NORMAL)
[2024-01-14 16:19] LABS: CLARITY,URINE HAZY (CLEAR)
[2024-01-14 16:31] LABS: BACTERIA,URINE Moderate /HPF (None Seen); RBC,URINE None Seen /HPF (0-5); SQUAMOUS EPITHELIAL CELL,UR MANY Squamous (<= Few); WBC,URINE 0-3 /HPF (0-5)
[2024-01-14 16:32] LABS: AMORPHOUS SEDIMENT,UR Rare /LPF
== END 2024-01-14 17:10 | disposition home or self-care (01) ==
LOC: ED 15:06
DX: O99.893 Other specified diseases and conditions complicating puerperium (principal); R00.2 Palpitations; O99.283 Endocrine, nutritional and metabolic diseases complicating pregnancy, third trimester; E86.0 Dehydration; E83.42 Hypomagnesemia; Z3A.34 34 weeks gestation of pregnancy
CPT/HCPCS: 36415; 80053; 81001; 81003; 83690; 83735; 84100; 85025; 87086; 93005; 96374; 99284

== ENCOUNTER 2024-01-30 08:00 | Outpatient (CLI) | payer OTHER, MEDICAID ==
[2024-01-30 18:04] LABS: CHLAMYDIA TRACHOMATIS DNA NEGATIVE (NEGATIVE); NEISSERIA GONORRHOEAE DNA NEGATIVE (NEGATIVE); TRICHOMONAS VAGINALIS DNA NEGATIVE (NEGATIVE)
== END 2024-01-30 23:59 | disposition home or self-care (01) ==
LOC: LAB.WC 08:00
PROVIDERS: ATTEND Obstetrics & Gynecology
DX: Z36.85 Encounter for antenatal screening for Streptococcus B (principal)
CPT/HCPCS: 87081; 87181; 87491; 87591; 87661; 87797

== ENCOUNTER 2024-02-04 08:00 | Outpatient (CLI) | payer OTHER, MEDICAID ==
[2024-02-04 12:55] LABS: RUPTURE OF MEMBRANES PLUS NEGATIVE (NEGATIVE)
== END 2024-02-04 23:59 | disposition home or self-care (01) ==
LOC: LAB.WC 08:00
PROVIDERS: ATTEND Obstetrics & Gynecology
DX: O42.90 Premature rupture of membranes, unspecified as to length of time between rupture and onset of labor, unspecified weeks of gestation (principal)
CPT/HCPCS: 84112

== ENCOUNTER 2024-02-05 13:37 | Outpatient (CLI) | payer OTHER, MEDICAID ==
--- NOTE | 2024-02-05 23:57 | Ultrasound Report ---
PROCEDURE: OB Follow up INDICATIONS: LARGE FOR GESTATIONAL AGE OUTSIDE/PRIOR DATING DATA: Last menstrual period (LMP): 05/18/2023. LMP-based estimated date of delivery (MARIYA): 02/22/2024. First dating scan (date and location): 08/04/2023. Estimated date of delivery (MARIYA) from first dating scan: 02/24/2024. The below data below was generated using the working MARIYA of 02/24/2024 TECHNIQUE: Ultrasound of the gravid uterus was performed and recorded. COMPARISON: None. FINDINGS: General: A single live intrauterine gestation is present. Presentation: Vertex Placenta: Placental position is anterior without previa. Amniotic fluid index: 15.6 cm, within normal limits for gestational age. heart rate: 135 beats per minute. Maternal cervical canal: Nonvisualized biometrics: Biparietal diameter: 1.4 cm, 38 week 2 day, 89 percentile Head circumference: 33.5 cm, 38 week 3 day, 52 percentile Abdominal circumference: 34.6 cm, 38 week 4 day, 91 percentile Femur length: 7.3 cm, 37 week 3 day, 54 percentile Estimated gestational age by working dates: 37 week 2 day Composite gestational age by current ultrasound: 38 week 1 day Estimated weight and percentile: 3438 g, 81 percentile Measurement variability in biometric dating: +/- 10 days from 12-20 weeks gestation, +/- 2 weeks from 20-30 weeks gestation, +/- 3 weeks at 30 weeks gestation or more. Other: Not applicable. IMPRESSION: Single live intrauterine consistent with 38 week 1 day gestation by current ultrasound Reviewed by: Brian Martin MD on 02/05/2024 10:56 PM TAWNY Approved by: Brian Martin MD on 02/05/2024 10:56 PM TAWNY Station ID: [id number]
== END 2024-02-05 13:38 | disposition home or self-care (01) ==
LOC: DI 13:37
PROVIDERS: ATTEND Obstetrics & Gynecology
DX: O36.63X0 Maternal care for excessive fetal growth, third trimester, not applicable or unspecified (principal); Z3A.38 38 weeks gestation of pregnancy

== ENCOUNTER 2024-02-06 19:07 | Outpatient (CLI) | payer OTHER, MEDICAID ==
[2024-02-06 19:48] LABS: BASOPHILS % (AUTO) 0.3 %; EOSINOPHILS # (AUTO) 0.1 10^3/uL (0.0-0.7); EOSINOPHILS % (AUTO) 0.6 %; HCT - HEMATOCRIT 34.1 % (37.0-47.0); HGB - HEMOGLOBIN 10.7 g/dL (12.0-16.0); LYMPHOCYTES # (AUTO) 1.5 10^3/uL (1.5-3.5); LYMPHOCYTES % (AUTO) 14.9 %; MEAN CORPUSCULAR HEMOGLOBIN 27.3 pg (27.0-31.0); MEAN CORPUSCULAR HGB CONC 31.4 g/dL (32.0-36.0); MEAN PLATELET VOLUME 12.1 fL (7.9-10.8); MONOCYTES # (AUTO) 0.8 10^3/uL (0.0-1.0); MONOCYTES % (AUTO) 8.5 %; NEUTROPHILS # (AUTO) 7.4 10^3/uL (1.5-6.6); NEUTROPHILS % (AUTO) 74.9 %; PLT - PLATELET COUNT 166 10^3/uL (130-450); RED BLOOD COUNT 3.92 10^6/uL (4.20-5.40); RED CELL DISTRIBUTION WIDTH 14.7 % (12.0-15.0); WHITE BLOOD COUNT 9.8 x10^3/uL (4.8-10.8)
[2024-02-06 20:03] LABS: ALBUMIN 3.4 g/dL (3.2-5.5); ALBUMIN/GLOBULIN RATIO 1.1 (1.0-2.2); BILIRUBIN,TOTAL 0.2 mg/dL (0.2-1.0); CALCIUM 9.3 mg/dL (8.5-10.3); CREATININE 0.6 mg/dL (0.6-1.3); TOTAL PROTEIN 6.5 g/dL (6.4-8.9)
[2024-02-06] MEDS: ACETAMINOPHEN 325 MG TABLET PO PRN (20:10)
[2024-02-06 20:26] VITALS: BP 115/67
[2024-02-06 20:39] LABS: CREATININE,URINE 102.7 mg/dL; PROTEIN/CREATININE RATIO,URINE 0.1 (<=0.2)
--- NOTE | 2024-02-07 08:59 | PROVIDER PROGRESS NOTE ---
- HPI Chief Complaint: Other (bp elevated in clinic Saturday and then at pharmacy today. here for bp check, labs, nst.) Current : Current EDU 02/22/24 Gestation 37 Weeks and 5 Days 2 Para 1 Vital Signs Temperature 99.9 F 02/06/24 19:19 Heart Rate 101 H 02/06/24 19:19 Respiratory Rate 16 02/06/24 19:19 Blood Pressure 115/67 02/06/24 19:19 Temperature 99.9 F 02/06/24 19:19 Heart Rate 101 H 02/06/24 19:19 Respiratory Rate 16 02/06/24 19:19 Blood Pressure 115/67 02/06/24 19:19 O2 Saturation If not protocol: Oxygen Flow, liters/minute - Exam looks well. minimal edema. - Procedures OB Procedure Performed: NST Diagnosis/Indication for NST: Gestational Hypertension NST Procedure: NST Procedure Start Date 02/06/24 Start Time 19:12 Stop Time 19:57 Vibroacoustic Stimulation Used No Patient States Movement Yes Service Date of procedure: 02/06/24 Procedure Details: Reactive for of 32 weeks gestation or more. NST tracing contains at least two heart rate accelerations that are at least 15 beats per minute above the baseline rate and lasting at least 15 seconds from onset to return to baseline within a twenty minute period. Findings: bps in triage are normal. NST reactive. labs are normal. no preeclampsia - Plan Plan: discharge home. f/u as needed or next week as scheduled. do want to proceed with scheduling at .
== END 2024-02-06 20:10 | disposition home or self-care (01) ==
LOC: WFO 19:07 → FBP 19:08 → WFO 20:10
PROVIDERS: ATTEND Obstetrics & Gynecology
DX: O13.3 Gestational [pregnancy-induced] hypertension without significant proteinuria, third trimester (principal); O34.219 Maternal care for unspecified type scar from previous cesarean delivery; Z3A.37 37 weeks gestation of pregnancy
CPT/HCPCS: 36415; 59025; 80053; 82570; 84156; 85025; A9270; 99212; 99215